=== PATIENT | male | born 1935 | race Caucasian/White ===

== ENCOUNTER → 2019-07-15 08:28 | Outpatient (BNVA) | payer MEDICARE, OTHER, SELFPAY | PROVIDERS: Family Provider Family Medicine; PCP Family Medicine; Visit Provider Urology | DX: R33.9 Retention of urine, unspecified (principal); N99.89 Other postprocedural complications and disorders of genitourinary system; N35.912 Unspecified bulbous urethral stricture, male | CPT/HCPCS: 81001 ==

== ENCOUNTER 2019-10-16 13:17 | Emergency (ER) | payer MEDICARE, OTHER, SELFPAY ==
[2019-10-16 13:21] VITALS: BP 224/79; PULSE 88; RESP 16; TEMP 36.9; O2SAT 98; BMI 27.3
--- NOTE | 2019-10-16 13:28 | XR_ITS ---
WS: [id number] LEFT HAND: 3 VIEW(S) TECHNIQUE: PA, oblique and lateral. HISTORY: fall COMPARISON: None available. There is a lucency through the distal radius along the articular surface that was not appreciated on the wrist radiographs. Suspicious for nondisplaced fracture. Severe degenerative changes at the first carpometacarpal joint. XR/XR hand LT min 3V* [id number] IMPRESSION: 1. Suspicious for nondisplaced fracture along the distal radial articular surf tyrell. 2. Soft tissue edema around the wrist.
--- NOTE | 2019-10-16 13:28 | XR_ITS ---
WS: [id number] LEFT WRIST: 3 VIEW(S) TECHNIQUE: PA, oblique and lateral. HISTORY: fall COMPARISON: None available. No acute fracture or dislocation. Severe degenerative changes at the first carpometacarpal joint. No soft tissue swelling. 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 No fracture.
--- NOTE | 2019-10-16 13:29 | W.ED.UPPEXIN ---
HPI - Extremity Injury (Upper) General: Chief Complaint: Extremity Injury, Upper Stated Complaint: fall yesterday, hurt wrist Time Seen by Provider: 10/16/19 13:19 Source: patient Mode of arrival: ambulatory Limitations: no limitations History of Present Illness: HPI narrative: Patient is a 84-year-old male here for complaints of left wrist pain that began following a fall 2 days ago. Patient states he was out on a walk with his and not paying attention and states he tripped over something and landed onto his left hand/wrist. Patient states he has been bothered by some discomfort since. No other injury sustained during the fall. He denies numbness, tingling, loss of sensation to the extremity. No color/temp changes noted. Reports some mild swelling MD complaint: injury to: left, wrist and hand Onset (ago): day(s) Other Extremity Injury: Left: hand and wrist Other injuries: none Place: home Severity: mild Exacerbating factors: movement of extremity and other (lifting) Context: fall Associated symptoms: Reports no associated symptoms; Denies neck pain or weakness in extremities Review of Systems Eyes: Denies: change in vision, blurry vision or photophobia Card: Denies: chest pain, palpitations, irregular heart rhythm, edema, lightheadedness, syncope or pre-syncope Resp: Denies: shortness of breath Musc: Reports: extremity pain (L hand/wrist) and joint swelling (L wrist); Denies: neck pain, back pain, redness, joint warmth, limited range of motion or muscle weakness Skin/Breast: Reports: other (no abrasions/lacerations noted) Neuro: Denies: headache, numbness in extremities, weakness in extremities, changes in sensation, lack of coordination, difficulty walking, frequent falls or dizziness [facility] ED PFSH: Social History Smoking and tobacco status: never smoked Alcohol intake: never Marital status: Current occupational status: retired Physical Exam Const: COMMON NORMALS: no apparent distress, average body habitus, oriented x3, no limitations, healthy appearing, alert and well nourished Neck/C-Spine: COMMON NORMALS: full ROM CERVICAL SPINE: Yes cervical ROM normal, No cervical spine tenderness and No paracervical muscle tenderness Resp: COMMON NORMALS: normal respiratory effort and clear to auscultation bilaterally AUSCULTATION: clear to auscultation bilaterally Cardio: COMMON NORMALS: regular rate and regular rhythm RATE: regular rate RHYTHM: regular rhythm Back/Pelvis: COMMON NORMALS: thoracic and lumbar spine normal to inspection and no thoracic nor lumbar tenderness Extremity: OTHER: mild TTP of L distal radial wrist and dorsum of L hand; maybe some very mild swelling present; radial pulse intact; full ROM; sensory intact Neuro: COMMON NORMALS: oriented x3, moves all extremities, no focal motor deficits, no sensory deficits noted and gait normal SENSORIUM/ORIENTATION: Yes alert Skin: COMMON NORMALS: no rashes or lesions noted GENERAL SKIN EXAM: no rashes or lesions noted Course Vital Signs: Vital signs: Vital Signs Temperature 98.5 F 10/16/19 13:21 Pulse Rate 77 10/16/19 13:39 Respiratory Rate 18 10/16/19 13:39 Blood Pressure 224/79 10/16/19 13:21 Pulse Oximetry 95 10/16/19 13:39 MDM - Extremity Injury (Upper) Imaging Data^: L wrist XR: My impression: NAD L hand XR: My impression: degenerative changes noted at 1st metacarpal joint; no acute fxs/dislocations noted Discharge Plan Discharge Patient Disposition: Home, Self-Care Clinical Impression: Left wrist sprain Qualifiers: Encounter type: initial encounter Qualified Code(s): S63.502A - Unspecified sprain of left wrist, initial encounter Condition: Stable Prescriptions: No Action multivitamin Tablet 1 tab PO QAM RF: 0 Restasis MultiDose 0.05 % drops 1 drop ophthalmic (eye) Q12H RF: 0 donepezil 10 mg tablet 10 mg PO QDAY RF: 0 ascorbic acid (vitamin C) 1,000 mg tablet 1 gm PO QDAY RF: 0 sertraline 25 mg tablet 25 mg PO QDAY RF: 0 levothyroxine 112 mcg capsule 112 mcg PO QDAY RF: 0 aspirin [Adult Low Dose Aspirin] 81 mg tablet,delayed release (DR/EC) 81 mg PO QDAY RF: 0 Lantus U-100 Insulin 100 unit/mL solution 100 unit SUBCUT QDAY RF: 0 atorvastatin [Lipitor] 20 mg tablet 20 mg PO QDAY RF: 0 insulin lispro [Humalog KwikPen Insulin] 100 unit/mL insulin pen 20 unit SUBCUT .sliding scale RF: 0 tramadol 50 mg tablet 50 mg PO .prn RF: 0 lubricants Gel 1 each TOPICAL ONCE Qty: 5 RF: 0 Discharge Orders: Discharge Order (Routine); Ordered 10/16/19 Ordered By: Shirley Rboerts Referrals: Lalita Mendosa MD [Primary Care Provider] - Discharge Diet: Usual diet Discharge Activity: Increase activity as tolerated Patient Instructions: Wrist Sprain (ED), Sprains - Wrist Activity Restrictions/Additional Instructions: Follow up with primary care in a week for continued pain. Coding Level of Care Code ED Psychosocial Rehabilitation Counselor for Liog Fwd Exam Detailed
[2019-10-16 13:39] VITALS: PULSE 77; RESP 18; O2SAT 95
--- NOTE | 2019-10-19 08:55 | DCPLANNER ---
manager vehicle was asked to schedule a follow up appointment for patient with ortho. manager vehicle called the ortho clinic, spoke with Jenna, gave clinic patients information. manager vehicle was told that patients information would be printed and reviewed. Clinic will call case assistant and patient with appointment information.
--- NOTE | 2019-10-20 11:28 | DCPLANNER ---
Patient had an appointment scheduled for 10.20.19 with ortho, with Dr. Maya. Patient did attend the appointment.
== END 2019-10-16 14:16 | disposition home or self-care (01) ==
PROVIDERS: Emergency Provider Physician Assistant; Family Provider Family Medicine; PCP Family Medicine
DX: S63.502A Unspecified sprain of left wrist, initial encounter (principal); W18.09XA Striking against other object with subsequent fall, initial encounter; Z79.82 Long term (current) use of aspirin; Z79.4 Long term (current) use of insulin
CPT/HCPCS: 12345; 29125; 73110; 73130; 99281; 99283

== ENCOUNTER → 2019-10-25 08:01 | Outpatient (BNVA) | payer MEDICARE, OTHER, SELFPAY | PROVIDERS: Family Provider Family Medicine; PCP Family Medicine; Visit Provider Urology | DX: N35.912 Unspecified bulbous urethral stricture, male (principal); N39.3 Stress incontinence (female) (male); N99.89 Other postprocedural complications and disorders of genitourinary system | CPT/HCPCS: 81001 ==

== ENCOUNTER → 2020-04-26 08:40 | Outpatient (BNVA) | payer MEDICARE, OTHER, SELFPAY | PROVIDERS: Family Provider Family Medicine; PCP Family Medicine; Visit Provider Urology | DX: R33.9 Retention of urine, unspecified (principal); N39.3 Stress incontinence (female) (male); N99.89 Other postprocedural complications and disorders of genitourinary system | CPT/HCPCS: 81003 ==

== ENCOUNTER → 2020-08-20 12:46 | Outpatient (BNVA) | payer MEDICARE, OTHER, SELFPAY | PROVIDERS: Family Provider Family Medicine; PCP Family Medicine; Visit Provider Urology | DX: Z01.812 Encounter for preprocedural laboratory examination (principal); N99.89 Other postprocedural complications and disorders of genitourinary system | CPT/HCPCS: 87635 ==

== ENCOUNTER 2020-08-23 11:10 | Day surgery (SDC) | payer MEDICARE, OTHER, SELFPAY ==
[2020-08-22 14:40] VITALS: BMI 27.3
--- NOTE | 2020-08-23 | SCC_ITS ---
Procedure Done: Cystoscopy multivariable dilation of urethral stricture 61.9 seconds of fluoroscopic guidance, for a cumulative dose of 15.97 mGy, was provided to Dr. Cabello by the radiology department. C-arm images of the pelvis were saved for the patient's permanent record. [facility]
--- NOTE | 2020-08-23 11:20 | SC_ITS ---
WS: [id number] C-arm fluoroscopy for urethral dilatation, 08/23/2020 Clinical Data: Urethral dilation Comparison: None. Findings: A urethral catheter was introduced. SC/C-arm FL for Urology Impression: Urethral catheter dilatation.
[2020-08-23 11:28] VITALS: BP 182/90; PULSE 79; RESP 16; TEMP 36.3; O2SAT 95
[2020-08-23] MEDS: sodium chloride 0.9% 1,000 ML 30 ML IV (11:48)
[2020-08-23 12:04] LABS: Glucose Point of Care 137 mg/dL (70-110)
--- NOTE | 2020-08-23 12:26 | ANES.PREANE2 ---
Pre-Anesthetic Assessment Pre-Anesthetic Assessment: Height/Weight: Height 1.73 m Weight 81.647 kg Temp Pulse Resp BP Pulse Ox 97.4 F L 79 16 182/90 95 08/23/20 11:28 08/23/20 11:28 08/23/20 11:28 08/23/20 11:28 08/23/20 11:28 Preop Diagnosis: urethral stricture Proposed Procedure: Operation Date: 08/23/20 12:50 Proposed Procedures p Cystoscopy 77475 N99.89(Not Applicable) - Joseph Cabello MD s Dilation urethral stricture(Not Applicable) - Joseph Cabello MD Familial anesthetic complications: None Was Beta Evangelina taken within 24 hours: N/A Last intake: Intake Last Liquid Date 08/23/20 Last Liquid Time 05:00 Last Solid Date 08/22/20 Last Solid Time 17:30 Social: Social History: No alcohol and No tobacco Exam: Pre-Anes Outpt Exam: alert, oriented x 3, clear to auscultation bilaterally and regular rate & rhythm Airway: Cervical ROM: WNL MP: 2 Dentition: Full CV/HEM: CV/HEM: CAD (stent many years ago - no longer on blood thinners) and HTN Metabolic: Metabolic: DM and Thyroid Anesthetic Plan: ASA status: 3 Anesthesia: General Risk of > 500 ml blood loss (7ml/kg in children): No Meds/Allergies Current Medications: Current Medications Generic Name Dose Route Start Last Admin Trade Name Freq PRN Reason Stop Dose Admin Sodium Chloride 1,000 mls @ 30 ml s/hr 08/23/20 11:30 08/23/20 11:48 Sodium Chloride 0.9% IV 08/24/20 11:29 30 mls/hr .Q24H MIRNA Administration PFSH Anesthesia PFSH: Medical History History of prostate cancer Sleep apnea Urinary anastomotic stricture Vertigo Surgical History History of back surgery History of prostatectomy S/P tonsillectomy S/P vasectomy Family History Family/Other CAD (coronary artery disease) Father , in his 70's Alzheimer disease Mother , in her 90's CAD (coronary artery disease) Social History Smoking and tobacco status: never smoked Alcohol intake: never Marital status: Current occupational status: retired History of recent travel: No Data Anesthesia Other Labs: Laboratory Results - last 48 hr 08/23/20 11:50 POC Glucose 137 H Cardiac Studies: No Data to Display
[2020-08-23] MEDS: levofloxacin-dextrose 5 % 500 MG/100 ML PREMIX 100 MG IV (13:23)
--- NOTE | 2020-08-23 13:28 | W.PM.OPSUD ---
Surgery/Procedure H&P Update DATE OF PROCEDURE: August 23, 2020 DATE H&P PERFORMED: 08/20/20 H&P UPDATE INFORMATION: I have reviewed H&P completed within last 30 days, I have examined patient prior to procedure, No changes to prior documentation and H&P is in [facility] on date indicated PREOP DIAGNOSIS: urethral stricture PLANNED PROCEDURE: Operation Date: 08/23/20 12:50 Proposed Procedures p Cystoscopy 84107 N99.89(Not Applicable) - Joseph Cabello MD s Dilation urethral stricture(Not Applicable) - Joseph Cabello MD
[2020-08-23] MEDS: lidocaine 2% Urojet 20 mL TOPICAL (13:53)
[2020-08-23] MEDS: iohexol 300 mg/mL 50 mL Btl (OR ONLY) XX (13:55)
--- NOTE | 2020-08-23 14:12 | PM.OP ---
Operative Report Date of procedure: August 23, 2020 Pre-op Diagnosis: urethrovesicle anastomotic stricture Post-op diagnosis: same Procedure Done: Cystoscopy multivariable dilation of urethral stricture Implants: 14 Norwegian coud? catheter, pitka's point tip Pathology: none sent Surgeon: Destiney Anesthesia: MAC Estimated blood loss: Less than 10 cc Urine output: Not measured Complications: None Findings: Very dense tight urethrovesical anastomotic stricture extending into the membranous urethra. Dilated with 18 Norwegian and 21 Norwegian balloons but still not able to pass a 16 or 14 Norwegian pitka's point tip catheter. Dilated then with renal dilators (Amplatz) to 18 Norwegian and able to manipulate a 14 Norwegian coud? tip pitka's point tip catheter over guidewire with good function Condition: stable Disposition: PACU Brief History: Mr. 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 Has been maintained with self clean intermittent catheterization for stricture patency maintenance. Recently missed a few catheters and was not able to get a catheter in easily. Attempts in the clinic at dilation were unsuccessful so he was admitted to the operating room today on outpatient basis for cystoscopy and dilation. Procedure: After routine preoperative evaluation examination and obtaining of informed consent he was taken to the operating suite on 08/23/2020 where MAC anesthesia was administered without difficulty. Prepped and draped in usual sterile fashion in dorsolithotomy position paying careful attention to avoiding pressure points after appropriate timeout was performed, SCDs confirmed to be functioning, preoperative antibiotics administered, beta-lindsey protocol confirmed. Cystoscope was advanced into the urethra to the level of the stricture. A guidewire was passed into the bladder as confirmed via fluoroscopy. An 18 Norwegian 4 cm balloon was advanced over the guidewire through the through the anastomotic to 10 shlomo of pressure with complete inflation of the balloon. Inflation was held in place for approximately 3 to 5 minutes. A 21 Norwegian 10 cm balloon was then advanced over the guidewire into the same position with inflation to 12 shlomo of pressure for the same duration. The balloon was removed. 17 Norwegian cystoscope was then attempted to be advanced through the dilated area but was unsuccessful due to the dense fixation of the area. A 16 Norwegian pitka's point tip catheter was then attempted to pass over the guidewire but this also was unsuccessful as was a 14 Norwegian coud? pitka's point tip catheter. Dilation with Amplatz renal dilators was then utilized from the 12 Norwegian over the guidewire through the 14, 16, 18 Norwegian over the snake and over the guidewire. The last was very tight. A 14 Norwegian coud? tip catheter converted to a pitka's point tip catheter was then a with some difficulty but over the guidewire. Small amount of contrast was mixed with saline and the balloon was inflated confirming its appropriate position and then deflated. 10 cc of saline was then utilized to inflate the balloon, the balloon was snugged against the bladder neck, catheter was confirmed to be functioning, and the wire removed. The bladder was then irrigated with a 60 cc To 30 Norwegian with no clots no significant bleeding. Catheter was placed to dependent drainage and the procedure was completed. Tolerated the procedure well without complications and was awakened in the operating room and returned to recovery in stable condition. PLANS: 1. Anticipate discharge from outpatient surgery with Alvarado catheter in place 2. Return to clinic in 1 week for catheter change to a 16 Norwegian pitka's point tip over guidewire
[2020-08-23 14:20] VITALS: BP 90/45; PULSE 61; RESP 16; TEMP 36.4; O2SAT 96
[2020-08-23 14:25] VITALS: BP 98/46; PULSE 58; RESP 16; O2SAT 97
[2020-08-23 14:30] VITALS: BP 114/52; PULSE 61; RESP 14; TEMP 36.4; O2SAT 95
--- NOTE | 2020-08-23 14:30 | SUR.PHASEI ---
1427- ORAL AIRWAY OUT, SIMPLE MASK AT 6LPM SAT 98%
[2020-08-23 14:38] VITALS: BP 111/53; PULSE 65; RESP 18; TEMP 36.6; O2SAT 94
--- NOTE | 2020-08-23 14:52 | ANE.PACU2 ---
Inpatient post-anesthesia follow up: Airway intact: Yes Vital signs: Temperature 97.8 F Pulse Rate 65 Respiratory Rate 18 Blood Pressure 111/53 Pulse Oximetry 94 Oxygen Delivery Me thod Room Air Oxygen Flow Rate 6 Fraction of Inspir ed Oxygen Hydration adequate: Yes Nausea and vomiting: No Pain level: 2 Mental status: Baseline
[2020-08-23 15:02] VITALS: BP 140/65; PULSE 56; RESP 18; TEMP 36.6; O2SAT 96
== END 2020-08-23 15:27 | disposition home or self-care (01) ==
PROVIDERS: Family Provider Family Medicine; PCP Family Medicine; Visit Provider Urology
PROC: 0TJB8ZZ Inspection of Bladder, Via Natural or Artificial Opening Endoscopic (ICD-10-PCS; CPT 52000; principal; 2020-08-23 12:50)
PROC: (CPT 52281; 2020-08-23 12:50)
DX: N35.919 Unspecified urethral stricture, male, unspecified site (principal); I25.10 Atherosclerotic heart disease of native coronary artery without angina pectoris; Z95.5 Presence of coronary angioplasty implant and graft; E11.9 Type 2 diabetes mellitus without complications; I10 Essential (primary) hypertension; Z85.46 Personal history of malignant neoplasm of prostate
CPT/HCPCS: 52281; 36416; 76000; 82962; 96365; J1956; J2704; J3010; J7030

== ENCOUNTER → 2020-10-31 09:02 | Outpatient (BNVA) | payer MEDICARE, OTHER, SELFPAY | PROVIDERS: Family Provider Family Medicine; PCP Family Medicine; Visit Provider Urology | DX: N30.00 Acute cystitis without hematuria (principal); N39.3 Stress incontinence (female) (male); N99.89 Other postprocedural complications and disorders of genitourinary system; Z85.46 Personal history of malignant neoplasm of prostate | CPT/HCPCS: 81003 ==

== ENCOUNTER 2020-11-15 10:06 | Emergency (ER) | payer MEDICARE, OTHER, SELFPAY ==
[2020-11-15 10:16] VITALS: BP 204/79; PULSE 70; RESP 16; TEMP 36.4; O2SAT 96; BMI 27.8
--- NOTE | 2020-11-15 10:39 | XR_ITS ---
WS: [id number] Exam: XR lumbar spine 2-3V* [id number] Date/Time of Exam: 11/15/2020 10:50 AM Reason For Exam: pain/fall Comparison 12/01/2017. No acute fracture or dislocation. Bilateral pedicle screws are in place from L3 to L5. Disc spacers a t L4-4 and L4-5. Facet arthropathy at all levels. Mild spondylosis. XR/XR lumbar spine 2-3V* [id number] IMPRESSION: 1. No acute fracture or malalignment. 2. Degenerative and postoperative changes of the lumbar spine. No overall huntley e since previous exam.
--- NOTE | 2020-11-15 10:45 | W.ED.BACK ---
HPI - Back Pain/Injury General: Chief Complaint: Back Pain/Injury Stated Complaint: fall last /back pain/hip pain Time Seen by Provider: 11/15/20 10:21 History of Present Illness: HPI Narrative: 85-year-old male presents to the emergency room complaint of back pain. He fell yesterday while working around the home he landed on his right side he was up and ambulatory after that seems to be doing okay with minimal discomfort. He is previously had back surgery with some instrumentation. He has been ambulatory he did not strike his head when he fell he did not denies any other injury. Severe pain with any movement in the low back. No radicular symptoms. MD elicited complaint: back pain, back injury and fall Pertinent past history: prior back pain Onset (ago): day(s) (1) Timing: constant Severity: moderate Similar Symptoms Previously: Yes Quality: stabbing and aching Location: lumbar spine Radiation: none Exacerbating factors: movement, sitting upright and walking Relieving factors: none Context: fall Associated symptoms: Deny abdominal pain, arthralgias, chills, change in bowel habits, difficulty walking, dysuria, fatigue, fecal incontinence, fever(s), hematuria, myalgias, nausea, numbness, syncope, tingling/numbness/burning, urinary frequency, urinary urgency, vomiting or weakness Review of Systems Const: Denies: fever(s), chills or fatigue ENMT: Denies: throat pain, ear or mastoid pain, nasal discharge or nasal congestion Card: Denies: syncope Resp: Denies: dyspnea, productive cough or non-productive cough GI: Denies: abdominal pain, nausea, vomiting, fecal incontinence or change in bowel habits : Denies: dysuria, urinary urgency or hematuria Skin/Breast: Denies: rash or pruritus Neuro: Denies: difficulty walking PFSH ED PFSH: Medical History History of prostate cancer Sleep apnea Urinary anastomotic stricture Vertigo Surgical History History of back surgery History of prostatectomy S/P tonsillectomy S/P vasectomy Family History Family/Other CAD (coronary artery disease) Father , in his 70's Alzheimer disease Mother , in her 90's CAD (coronary artery disease) Social History Smoking and tobacco status: never smoked Alcohol intake: never Marital status: Current occupational status: retired History of recent travel: No Physical Exam Const: ORIENTATION/CONSCIOUSNESS: Yes awake, Yes oriented to person, Yes oriented to place and Yes oriented to time HENMT: COMMON NORMALS: normocephalic, atraumatic and hearing grossly normal bilaterally HEAD & SCALP: normocephalic and atraumatic Neck/C-Spine: COMMON NORMALS: no JVD Resp: COMMON NORMALS: normal respiratory effort, No retractions, No use of accessory muscles and clear to auscultation bilaterally AUSCULTATION: clear to auscultation bilaterally Cardio: COMMON NORMALS: no JVD, regular rate, regular rhythm and No murmurs present (Cardio) RATE: regular rate RHYTHM: regular rhythm GI: COMMON NORMALS: Soft to palpation and No hepatosplenomegaly present AUSCULTATION: Yes normoactive bowel sounds PALPATION: Yes Soft to palpation, No Tenderness to palpation present (GI), No Guarding due to palpation present (GI) and Yes No hepatosplenomegaly present Extremity: COMMON NORMALS: normal to inspection, capillary refill normal, no clubbing, cyanosis or edema, no calf tenderness and no pedal edema Neuro: SENSORIUM/ORIENTATION: Yes oriented to person, Yes oriented to place and Yes oriented to time OTHER: Neurovascular intact lower extremities +2/4 deep tendon reflex patellar tendon bilaterally Skin: COMMON NORMALS: no rashes or lesions noted GENERAL SKIN EXAM: no rashes or lesions noted Course Vital Signs: Vital signs: Vital Signs Temperature 97.5 F L 11/15/20 10:16 Pulse Rate 70 11/15/20 10:16 Respiratory Rate 16 11/15/20 10:16 Blood Pressure 204/79 11/15/20 10:16 Pulse Oximetry 96 11/15/20 10:16 MDM - Back Pain/Injury MDM Narrative: Medical decision making narrative: Terrence film unremarkable. Patient clinically appears to have musculoskeletal back pain no urinary retention or fecal incontinence no radicular symptoms will discharge home diclofenac tizanidine as needed follow-up with primary care return if has uncontrolled pain Discharge Plan Discharge Patient Disposition: Home Clinical Impression: Fall, Lumbar back pain Condition: Stable Prescriptions: New diclofenac sodium 75 mg tablet,delayed release (DR/EC) 75 mg PO Q12H PRN (Reason: pain) Qty: 20 RF: 0 tizanidine 4 mg capsule 4 mg PO Q6H PRN (Reason: muscle spasticity) Qty: 20 RF: 0 No Action aspirin 81 mg tablet,delayed release (DR/EC) 81 mg PO PRN RF: 0 sertraline [Zoloft] 50 mg tablet 50 mg PO DAILY RF: 0 multivitamin Tablet 1 tab PO EVERY OTHER DAY RF: 0 donepezil 10 mg tablet 10 mg PO DAILY RF: 0 atorvastatin [Lipitor] 20 mg tablet 20 mg PO BEDTIME RF: 0 insulin lispro [Humalog KwikPen Insulin] 100 unit/mL insulin pen See Rx Instructions .ROUTE .COMPLEX RF: 0 lisinopril 20 mg tablet 20 mg PO DAILY PRN (Reason: Blood Pressure) RF: 0 hydrocodone-acetaminophen [[place]] 5-325 mg tablet 1 tab PO Q8H PRN (Reason: pain) Qty: 12 RF: 0 Synthroid 100 mcg tablet 100 mcg PO DAILY RF: 0 Lantus Solostar U-100 Insulin 100 unit/mL (3 mL) insulin pen 60 unit SUBCUT QAM RF: 0 Prevagen 1 cap PO DAILY RF: 0 Discharge Orders: Discharge ED (Routine); Ordered 11/15/20 Ordered By: Catarino Bro Referrals: Lalita Mendosa MD [Primary Care Provider] - Discharge Diet: Usual diet Discharge Activity: Increase activity as tolerated Patient Instructions: Opioid Safety Coding Level of Care Code ED Gas Or Water Meter Installer for Chg Fwd Exam Comprehensive
[2020-11-15] MEDS: HYDROcodone-acetaminophen 5-325 mg Tablet 1 TAB PO (11:15)
== END 2020-11-15 11:55 | disposition home or self-care (01) ==
PROVIDERS: Emergency Provider Family Medicine; Family Provider Family Medicine; PCP Family Medicine
DX: M54.5 Low back pain (principal); Z79.82 Long term (current) use of aspirin; Z79.4 Long term (current) use of insulin; Z85.46 Personal history of malignant neoplasm of prostate
CPT/HCPCS: 72100; 99283

== ENCOUNTER 2021-06-06 14:25 | Outpatient (CLI) | payer MEDICARE, OTHER, SELFPAY ==
--- NOTE | 2021-06-06 14:36 | XR_ITS ---
WS: [id number] XR thoracic spine 3V* [id number] REASON FOR EXAM: BACK PAIN/FELL AT HOME FINDINGS: Mild thoracic scoliosis convex right. Disc space narrowing with anterior osteophytic spurring in the mid and lower thoracic spine. There is a concave deformity of the inferior endplate of T12 however this appears old as it is associ ated with osteophytic spurring and sclerosis. No definite acute compression deformity. XR/XR thoracic spine 3V* [id number] IMPRESSION: No acute abnormality. Degenerative spondylosis.
--- NOTE | 2021-06-06 14:36 | XR_ITS ---
WS: [id number] XR lumbar spine 2-3V* [id number] REASON FOR EXAM: DORSALGIA/BACK PAIN AFTER STUMBLING/HX OF SPINAL STENOSIS FINDINGS: Bilateral pedicle screws at L3, L4, and L5. No radiopaque rods. Interbody fusion devices with apparent fusion of the L4-L5 and L5-S1 disc space. No change compared to the previous examination of 11/15/2020. XR/XR lumbar spine 2-3V* [id number] IMPRESSION: Stable postsurgical lumbar spine.
== END 2021-06-06 14:26 | disposition home or self-care (01) ==
LOC: RAD 14:35
PROVIDERS: PCP Family Medicine; Visit Provider Family Medicine
DX: M54.50 Low back pain, unspecified (principal); W19.XXXA Unspecified fall, initial encounter; M47.814 Spondylosis without myelopathy or radiculopathy, thoracic region
CPT/HCPCS: 72072; 72100

== ENCOUNTER → 2021-07-23 09:58 | Outpatient (BNVA) | payer MEDICARE, OTHER, SELFPAY | PROVIDERS: PCP Family Medicine; Referring Provider Family Medicine; Visit Provider Anesthesiology Pain Medicine | DX: M54.50 Low back pain, unspecified (principal); M79.604 Pain in right leg; M79.605 Pain in left leg; Z79.891 Long term (current) use of opiate analgesic | CPT/HCPCS: 99205 ==

== ENCOUNTER → 2021-08-27 09:56 | Outpatient (BNVA) | payer MEDICARE, OTHER, SELFPAY | PROVIDERS: PCP Family Medicine; Visit Provider Anesthesiology Pain Medicine | DX: M54.50 Low back pain, unspecified (principal); M25.551 Pain in right hip | CPT/HCPCS: 99214 ==

== ENCOUNTER → 2022-01-29 10:15 | Outpatient (BNVA) | payer MEDICARE, OTHER, SELFPAY | PROVIDERS: PCP Family Medicine; Visit Provider Nurse Practitioner Family | DX: N99.89 Other postprocedural complications and disorders of genitourinary system (principal); N48.1 Balanitis; N39.3 Stress incontinence (female) (male); Z85.46 Personal history of malignant neoplasm of prostate | CPT/HCPCS: 51798; 81003; 87086; 99213 ==

== ENCOUNTER → 2022-08-07 11:00 | Outpatient (BNVA) | payer MEDICARE, OTHER, SELFPAY | PROVIDERS: PCP Family Medicine; Visit Provider Urology | DX: N39.3 Stress incontinence (female) (male) (principal); N99.89 Other postprocedural complications and disorders of genitourinary system; N48.1 Balanitis; Z85.46 Personal history of malignant neoplasm of prostate | CPT/HCPCS: 51798; 99213 ==

== ENCOUNTER 2024-01-05 12:00 | Outpatient (CLI) | payer MEDICARE, OTHER, SELFPAY ==
--- NOTE | 2024-01-05 12:09 | XRR_ITS ---
PROCEDURE INFORMATION: Exam: XR Right Foot Exam date and time: 01/05/2024 12:22 PM Age: 88 years old Clinical indication: Injury or trauma; Fall; Blunt trauma; Right; Injury details: RT foot pain x 3 weeks, fell 01/01 and twisted knee; Additional info: Pain in R foot TECHNIQUE: Imaging protocol: Radiologic exam of the right foot. Views: 3 or more views. COMPARISON: CR XR knee RT 4V [id number] 01/05/2024 12:22 PM FINDINGS: Bones/joints: Valgus deformities right 1st through 4th toes. Oblique, slightly displaced fracture distal shaft right 5th metatarsal. Tiny right inferior calcaneal spur. Small chronic erosion inferior posterior right calcaneus. Otherwise, unremarkable. Soft tissues: Normal. XR/XR foot RT min 3V* [id number] IMPRESSION: 1. Slightly displaced oblique fracture distal shaft right 5th metatarsal. 2. Additional details as above.
--- NOTE | 2024-01-05 12:09 | XRR_ITS ---
PROCEDURE INFORMATION: Exam: XR Right Knee Exam date and time: 01/05/2024 12:22 PM Age: 88 years old Clinical indication: Injury or trauma; Fall; Sprain or strain; Patella or knee; Right; Injury date: 01/01; Additional info: Pain in R knee TECHNIQUE: Imaging protocol: Radiologic exam of the right knee. Views: 3 views. 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 Otherwise, unremarkable. Soft tissues: Normal. XR/XR knee RT 4V [id number] IMPRESSION: No acute findings.
== END 2024-01-05 12:01 | disposition home or self-care (01) ==
PROVIDERS: PCP Family Medicine; Visit Provider Family Medicine
DX: M25.561 Pain in right knee (principal); S80.911A Unspecified superficial injury of right knee, initial encounter; W19.XXXA Unspecified fall, initial encounter
CPT/HCPCS: 73564; 73630

== ENCOUNTER → 2024-01-08 11:05 | Outpatient (BNVA) | payer MEDICARE, OTHER, SELFPAY | PROVIDERS: PCP Family Medicine; Visit Provider Podiatrist Foot & Ankle Surgery | DX: S92.351A Displaced fracture of fifth metatarsal bone, right foot, initial encounter for closed fracture (principal); W19.XXXA Unspecified fall, initial encounter | CPT/HCPCS: 99203 ==

== ENCOUNTER → 2024-01-11 07:30 | Outpatient (BNVA) | payer MEDICARE, OTHER, SELFPAY | PROVIDERS: PCP Family Medicine; Visit Provider Specialist | DX: M65.30 Trigger finger, unspecified finger (principal); M19.042 Primary osteoarthritis, left hand; M65.342 Trigger finger, left ring finger | CPT/HCPCS: 73130; 99204 ==

== ENCOUNTER → 2024-01-29 11:43 | Outpatient (BNVA) | payer MEDICARE, OTHER, SELFPAY | PROVIDERS: PCP Family Medicine; Visit Provider Podiatrist Foot & Ankle Surgery | DX: S92.351D Displaced fracture of fifth metatarsal bone, right foot, subsequent encounter for fracture with routine healing (principal); W19.XXXD Unspecified fall, subsequent encounter | CPT/HCPCS: 73630; 99213 ==

== ENCOUNTER → 2024-02-17 16:15 | Outpatient (BNVA) | payer MEDICARE, OTHER, SELFPAY | PROVIDERS: PCP Family Medicine; Visit Provider Specialist | DX: Z01.818 Encounter for other preprocedural examination (principal) | CPT/HCPCS: 36415; 80053; 85025 ==

== ENCOUNTER 2024-03-10 11:33 | Outpatient (CLI) | payer MEDICARE, OTHER, SELFPAY ==
[2024-03-10 12:04] LABS: Add Urine Microscopic? YES; Bilirubin Urine Neg (Negative); Blood Urine 2+ (Negative); Glucose Urine UA Norm (Normal); Ketones Urine Negative (Negative); Leukocyte Esterase Urine Trace (Negative); Nitrate Urine Negative (Negative); Protein Urine Trace (Negative); Specific Gravity, Urine 1.025 (1.005-1.030); Urine Appearance Cloudy (CLEAR); Urine Color Yellow (Yellow); Urobilinogen Urine Norm (Negative); pH Urine 5 (5-7)
[2024-03-10 12:07] LABS: RBC Urine 0-4 /hpf (0-2)
[2024-03-10 12:08] LABS: Add Urine Culture? Yes; Bacteria Urine 2+ /hpf; Mucus Urine 2+ /hpf; Squamous Epithelial Cell Urine 0-4 /hpf (0-5); WBC Urine 15-25 /hpf (0-5)
== END 2024-03-10 11:34 | disposition home or self-care (01) ==
LOC: LAB 11:35
PROVIDERS: PCP Family Medicine; Visit Provider Specialist
DX: Z01.818 Encounter for other preprocedural examination (principal)
CPT/HCPCS: 81001; 87077; 87086; 87186

== ENCOUNTER 2024-03-15 05:57 | Day surgery (SDC) | payer MEDICARE, OTHER, SELFPAY ==
[2024-03-15] VITALS (12 sets, daily range): BP systolic 84–134; BP diastolic 41–82; PULSE 56–68; RESP 15–18; TEMP 36.1–36.4; O2SAT 90–94
[2024-03-15] MEDS: sodium chloride 0.9% 1,000 ML 30 ML IV (06:33)
[2024-03-15] MEDS: acetaminophen 1,000 MG/100 ML PIGGYBACK 400 MG IV (06:34)
[2024-03-15] MEDS: gabapentin 300 mg Capsule PO (06:36)
[2024-03-15] MEDS: CELEcoxib 200 mg Capsule 400 MG PO (06:36)
[2024-03-15 06:46] LABS: Glucose Point of Care 112 mg/dL (70-110)
--- NOTE | 2024-03-15 06:46 | ANES.PREANE2 ---
Pre-Anesthetic Assessment Height/Weight: Height 1.73 m Weight 83.915 kg Temp Pulse Resp BP Pulse Ox O2 Del Method 97 F L 68 16 134/82 93 Room Air 03/15/24 06:14 03/15/24 06:14 03/15/24 06:14 03/15/24 06:14 03/15/24 06:14 03/15/24 06:14 Operation Date: 03/15/24 07:00 Proposed Procedures p Trigger Finger Release(Left) - Apurva Carpio MD Familial anesthetic complications: None Was Beta Evangelina taken within 24 hours: N/A Was Clonidine taken within 24 hours: N/A Last intake: Intake Last Liquid Date 03/14/24 Last Liquid Time 00:00 Last Solid Date 03/14/24 Last Solid Time 18:30 Social No alcohol and No tobacco Exam alert, oriented x 3, clear to auscultation bilaterally and regular rate & rhythm Airway Mallampati: Class IV Dentition: full CV/HEM Coronary Artery Disease (stent) and Hypertension Metabolic Diabetes Mellitus, Hyperlipidemia and Thyroid Disease Anesthetic Plan ASA status: 3 Anesthesia: General Risk of > 500 ml blood loss (7ml/kg in children): No Medications/Allergies Home Medications Medication Instructions Recorded Confirmed Last Taken Type atorvastatin 20 mg tablet (Lipitor) 20 mg PO BEDTIME 07/12/19 03/15/24 03/14/24 History donepezil 10 mg tablet 10 mg PO DAILY see pharmacy 07/12/19 03/15/24 03/14/24 History comments multivitamin 1 tab PO EVERY OTHER DAY 07/12/19 03/15/24 03/14/24 History insulin lispro 100 unit/mL See Rx Instructions .Route 06/06/20 03/15/24 03/14/24 History subcutaneous pen (Humalog KwikPen .COMPLEX see pharmacy comments (U-100) Insulin) lisinopril 20 mg tablet 20 mg PO DAILY PRN Blood Pressure 06/06/20 03/15/24 03/14/24 History sertraline 50 mg tablet (Zoloft) 50 mg PO DAILY 08/20/20 03/15/24 03/14/24 History Prevagen 1 cap PO DAILY 11/15/20 03/15/24 03/14/24 History insulin glargine 100 unit/mL (3 60 unit SUBCUT QAM 05/03/15/24 03/14/24 History mL) subcutaneous pen (Lantus Solostar U-100 Insulin) levothyroxine 100 mcg tablet 100 mcg PO DAILY 11/15/20 03/15/24 03/14/24 History (Synthroid) tizanidine 4 mg capsule 4 mg PO Q6H PRN muscle spasticity 11/15/20 03/15/24 03/14/24 Rx #20 caps nystatin-triamcinolone 100,000 1 applic topical BID #30 grams 01/29/22 03/15/24 Unknown Rx unit/gram-0.1 % topical ointment sulfamethoxazole 800 1 tab PO BID 10 days #20 tabs 03/11/24 03/15/24 03/14/24 Rx mg-trimethoprim 160 mg tablet (Bactrim DS) Allergies Allergy/AdvReac Type Severity Reaction Status Date / Time loratadine [From Claritin] Allergy NA Verified 03/14/24 14:17 Current Medications Generic Name Dose Route Start Last Admin Trade Name Freq PRN Reason Stop Dose Admin Sodium Chloride 1,000 mls @ 30 mls/hr 03/15/24 06:00 03/15/24 06:33 Sodium Chloride 0.9% IV 03/16/24 05:59 30 mls/hr .Q24H MIRNA Administration PFSH Anesthesia Medical History History of prostate cancer Vertigo Sleep apnea Urinary anastomotic stricture Surgical History History of back surgery S/P tonsillectomy S/P vasectomy History of prostatectomy Family History Family/Other CAD (coronary artery disease) Father , in his 70's Alzheimer disease Mother , in her 90's CAD (coronary artery disease) Social History Smoking and tobacco/nicotine status: never used tobacco/nicotine Alcohol intake: never Substance/Drug Use: never Marital status: Current occupational status: retired Data Anesthesia Cardiac Studies: No Data to Display
--- NOTE | 2024-03-15 06:48 | W.PM.OPSUD ---
Surgery/Procedure H&P Update DATE OF PROCEDURE: March 15, 2024 DATE H&P PERFORMED: 02/17/24 H&P UPDATE INFORMATION: I have reviewed H&P completed within last 30 days, I have examined patient prior to procedure, No changes to prior documentation and H&P is in [facility] [place] EMR on date indicated PLANNED PROCEDURE: Operation Date: 03/15/24 07:00 Proposed Procedures p Trigger Finger Release(Left) - Apurva Carpio MD Related Problem List Diagnoses (1) Trigger finger, left ring finger:
[2024-03-15] MEDS: ceFAZolin 2,000 mg SDV 2000 MG IVP (07:07)
[2024-03-15] MEDS: BUPivacaine 0.5% INJ 30 mL XX (07:25)
--- NOTE | 2024-03-15 07:58 | PM.OP ---
Operative Report Date of procedure: March 15, 2024 Pre-op diagnosis: Left ring trigger finger Post-op diagnosis: Left ring trigger finger Post-op findings: Significant erythema around the flexor tendons and tightness of the A1 nick and more proximal fibrous tissue Procedure done: Release left ring trigger finger Specimens removed/disposition: None Surgeon: Apurva Carpio MD Centerless Grinding Machine Adjuster: None Anesthesia: General (Per LMA, ASA 3) Estimated blood loss (mL): 2 Tourniquet time (min): 0 (Not utilized) IV fluids (mL): 550 Urine output (mL): 0 (No Alvarado) Complications: None Findings: Significant compression across the flexor tendons and tightness of the A1 nick Condition: stable Disposition: PACU (Then return to same-day surgery for discharge to home) Brief History: This 88-year-old gentleman presented to the office with left ring trigger finger. He splinted his finger as he was not wanting to have surgery. This did not help with the triggering, and subsequently, he wished to proceed with surgical intervention. He does suffer with dementia, and risks and complications were discussed with him but mostly with his . They agreed to the surgical procedure. Consents were signed and questions were answered. Procedure: Patient was brought to the operating theater. He was placed on the operating room table. General anesthesia per LMA, ASA 3, was administered without difficulty. Patient tolerated it well. Ancef 2 g was administered uneventfully. Secondary to the patient's Dexcom, tourniquet was not utilized. Surgical pause was performed prior to commencement of the surgical procedure. At the time of the surgical pause, we identified the site and side of surgery. We also identified the patient's identity and appropriate administration of IV antibiotics. Following the surgical pause, an incision was made along the distal palmar crease beneath the ring finger. Dissection continued through the skin to the subcutaneous tissues using a scalpel. Blunt dissection was then utilized to spread soft tissues and allow access to the A1 nick. It was then incised longitudinally and sharply using a knife. This was accomplished without difficulty and atraumatically. Once the A1 nick was released, flexor tendons were brought up out of the wound and evaluated. There were no gross masses on the tendons. Tendons were returned to normal position. We then irrigated the wound and subsequently closed it with 3-0 nylon with an interrupted mattress type suture. Following closure of the wound, the wound was injected with bupivacaine plain into the subcutaneous tissues as a local anesthetic. Sterile dressing was then placed consisting of Dermabond, OpSite, fluffed fluffs, sterile soft roll, and an Tomas wrap. The patient was returned to recovery in satisfactory condition. He will be discharged home to follow-up with me in the office. There were no complications and no specimens. Related Problem List Diagnoses (1) Trigger finger, left ring finger:
--- NOTE | 2024-03-15 09:55 | ANE.PACU2 ---
Inpatient post-anesthesia follow up: Airway intact: Yes Vital signs: Temperature 97.4 F Pulse Rate 66 Respiratory Rate 18 Blood Pressure 112/56 Pulse Oximetry 91 Oxygen Delivery Me thod Room Air Oxygen Flow Rate 1 Fraction of Inspir ed Oxygen Hydration adequate: Yes Nausea and vomiting: No Pain level: 1 Mental status: Baseline
== END 2024-03-15 09:54 | disposition home or self-care (01) ==
PROVIDERS: PCP Family Medicine; Visit Provider Specialist
PROC: (CPT 26055; principal; 2024-03-15 07:00)
DX: M65.342 Trigger finger, left ring finger (principal); I25.10 Atherosclerotic heart disease of native coronary artery without angina pectoris; Z95.5 Presence of coronary angioplasty implant and graft; I10 Essential (primary) hypertension; E11.9 Type 2 diabetes mellitus without complications; E78.5 Hyperlipidemia, unspecified; Z79.4 Long term (current) use of insulin; Z85.46 Personal history of malignant neoplasm of prostate
CPT/HCPCS: 26055; 36416; 82962; J0131; J0690; J1100; J2371; J2405; J2704; J3010; J3490; J7030

== ENCOUNTER → 2024-03-28 08:03 | Outpatient (BNVA) | payer MEDICARE, OTHER, SELFPAY | PROVIDERS: PCP Family Medicine; Visit Provider Nurse Practitioner | DX: Z98.890 Other specified postprocedural states (principal) | CPT/HCPCS: 99024 ==

== ENCOUNTER → 2024-04-05 15:45 | Outpatient (BNVA) | payer MEDICARE, OTHER, SELFPAY | PROVIDERS: PCP Family Medicine; Visit Provider Podiatrist Foot & Ankle Surgery | DX: L60.3 Nail dystrophy (principal); E11.8 Type 2 diabetes mellitus with unspecified complications; G62.9 Polyneuropathy, unspecified; E11.42 Type 2 diabetes mellitus with diabetic polyneuropathy; Z79.4 Long term (current) use of insulin | CPT/HCPCS: 11721 ==

== ENCOUNTER → 2024-06-07 15:15 | Outpatient (BNVA) | payer MEDICARE, OTHER, SELFPAY | PROVIDERS: PCP Family Medicine; Visit Provider Podiatrist Foot & Ankle Surgery | DX: L60.3 Nail dystrophy (principal); G62.9 Polyneuropathy, unspecified; E11.42 Type 2 diabetes mellitus with diabetic polyneuropathy; Z79.4 Long term (current) use of insulin | CPT/HCPCS: 11721 ==

== ENCOUNTER → 2024-08-16 14:01 | Outpatient (BNVA) | payer MEDICARE, OTHER, SELFPAY | PROVIDERS: PCP Family Medicine; Visit Provider Podiatrist Foot & Ankle Surgery | DX: E11.42 Type 2 diabetes mellitus with diabetic polyneuropathy (principal); L60.3 Nail dystrophy; G62.9 Polyneuropathy, unspecified; Z79.4 Long term (current) use of insulin; L84 Corns and callosities | CPT/HCPCS: 11056; 11721 ==

== ENCOUNTER → 2024-11-01 15:19 | Outpatient (BNVA) | payer MEDICARE, OTHER, SELFPAY | PROVIDERS: PCP Family Medicine; Visit Provider Podiatrist Foot & Ankle Surgery | DX: E11.42 Type 2 diabetes mellitus with diabetic polyneuropathy (principal); L60.3 Nail dystrophy; L84 Corns and callosities; G62.9 Polyneuropathy, unspecified; Z79.4 Long term (current) use of insulin | CPT/HCPCS: 11056; 11721 ==

== ENCOUNTER 2024-12-08 16:31 | Emergency (ER) | payer MEDICARE, OTHER, SELFPAY ==
[2024-12-08 16:51] VITALS: BP 155/76; PULSE 94; RESP 16; TEMP 36.4; O2SAT 96
[2024-12-08 17:20] LABS: Basophils % 0.3 %; Eosinophils # 0.2 10^3/uL (0.0-0.8); Eosinophils % 1.7 %; Hematocrit 46.6 % (37-53); Lymphocytes % 17.1 %; Mean Corpuscular HGB Conc 34.1 g/dL (30-55); Mean Corpuscular Volume 93.8 fl (82-101); Mean Platelet Volume 9.5 fL (7.4-10.4); Monocytes # 0.9 10^3/uL (0.2-0.9); Monocytes % 7.6 %; Neutrophils # 8.36 10^3/uL (1.8-7.7); Neutrophils % 72.7 %; Nucleated Red Blood Cells % 0 %; Platelet Count 139 10^3/cmm (157-399); Red Blood Count 4.97 10^6/uL (3.85-5.65); Red Cell Distribution Width 13.1 % (12.1-15.1); White Blood Count 11.48 10^3/uL (3.29-11.43)
[2024-12-08 17:43] LABS: Alanine Aminotransferase 19 U/L (0-41); Albumin Level 4.7 g/dL (3.5-5.2); Alkaline Phosphatase 86 U/L (40-130); Anion Gap 18.9 (5-19); Aspartate Amino Transferase 17 U/L (0-40); Blood Urea Nitrogen 23 mg/dL (8-23); Calcium 9.5 mg/dL (8.5-10.5); Carbon Dioxide 22 mmol/L (22-29); Chloride 106 mmol/L (98-107); Creatinine Clr Calc Pharmacy 59.6845; Globulin 2.8 g/dL (1.3-4.6); Glucose 98 mg/dL (65-115); Osmolality Calculated 300 mOsm/kg (285-295); Potassium 3.9 mmol/L (3.5-5.1); Sodium 143 mmol/L (136-145); Total Bilirubin 0.5 mg/dL (0.15-1.2); Total Protein 7.5 g/dL (6.6-8.7)
[2024-12-08 18:31] VITALS: BP 133/63; O2SAT 93
--- NOTE | 2024-12-08 18:43 | W.ED.MALEGU ---
HPI - Male Genitourinary General: Chief complaint: Urogenital-Male Stated complaint: unable to urinate Time Seen by Provider: 12/08/24 18:26 History of Present Illness: 89-year-old male presents with possible urinary retention. Patient has a history of dementia and reports he has not urinated since this morning. However not sure if he has urinated and changed to brief or not. Patient did urinate in his briefs while in the ER. Patient does report he tried to self cath at home and there was a little bit of blood associated with his urine. Associated symptoms: Deny nausea or vomiting Related Data Home Medications ?Medication ?Instructions ?Recorded ?Confirmed atorvastatin 20 mg tablet (Lipitor) 20 mg PO BEDTIME 07/12/19 11/01/24 donepezil 10 mg tablet 10 mg PO DAILY see pharmacy 07/12/19 11/01/24 comments multivitamin 1 tab PO EVERY OTHER DAY 07/12/19 11/01/24 insulin lispro 100 unit/mL See Rx Instructions .Route 06/06/20 11/01/24 subcutaneous pen (Humalog KwikPen .COMPLEX see pharmacy comments (U-100) Insulin) lisinopril 20 mg tablet 20 mg PO DAILY PRN Blood Pressure 06/06/20 11/01/24 sertraline 50 mg tablet (Zoloft) 50 mg PO DAILY 08/20/20 11/01/24 Prevagen 1 cap PO DAILY 11/15/20 11/01/24 insulin glargine 100 unit/mL (3 60 unit SUBCUT QAM 11/15/20 11/01/24 mL) subcutaneous pen (Lantus Solostar U-100 Insulin) levothyroxine 100 mcg tablet 100 mcg PO DAILY 11/15/20 11/01/24 (Synthroid) Previous Rx's ?Medication ?Instructions ?Recorded tizanidine 4 mg capsule 4 mg PO Q6H PRN muscle spasticity 11/15/20 #20 caps nystatin-triamcinolone 100,000 1 applic topical BID #30 grams 01/29/22 unit/gram-0.1 % topical ointment sulfamethoxazole 800 1 tab PO BID 10 days #20 tabs 03/11/24 mg-trimethoprim 160 mg tablet (Bactrim DS) cephalexin 500 mg capsule 500 mg PO BID #10 caps 06/19/25 Allergies Allergy/AdvReac Type Severity Reaction Status Date / Time loratadine (From Claritin) Allergy NA Verified 11/01/24 15:19 Review of Systems General: Reports: Other (Limited due to dementia) GI: Reports: other; Denies: abdominal pain, nausea or vomiting : Reports: other (Please see HPI) PFSH ED PFSH: Medical History History of prostate cancer Vertigo Sleep apnea Urinary anastomotic stricture Surgical History S/P trigger finger release Date of procedure: March 15, 2024 Procedure done: Release left ring trigger finger. Surgeon: Apurva Carpio MD History of back surgery S/P tonsillectomy S/P vasectomy History of prostatectomy Family History Family/Other CAD (coronary artery disease) Father , in his 70's Alzheimer disease Mother , in her 90's CAD (coronary artery disease) Social History Smoking and tobacco/nicotine status: never used tobacco/nicotine Alcohol intake: never Substance/Drug Use: never Marital status: Current occupational status: retired Physical Exam Const: COMMON NORMALS: no acute distress and alert Resp: COMMON NORMALS: normal respiratory effort and clear to auscultation bilaterally AUSCULTATION: clear to auscultation bilaterally Cardio: COMMON NORMALS: regular rate and regular rhythm RATE: regular rate RHYTHM: regular rhythm GI: COMMON NORMALS: Soft to palpation and non-tender PALPATION: Yes Soft to palpation Neuro: SENSORIUM/ORIENTATION: Yes alert Psych: OTHER: At baseline Skin: COMMON NORMALS: no rashes or lesions noted GENERAL SKIN EXAM: no rashes or lesions noted Course Vital Signs: Vital signs: Vital Signs Temperature 97.5 F L 12/08/24 16:51 Pulse Rate 94 12/08/24 16:51 Respiratory Rate 16 12/08/24 16:51 Blood Pressure 133/63 12/08/24 18:31 Pulse Oximetry 93 12/08/24 18:31 Oxygen Delivery Me thod Room Air 12/08/24 16:51 MDM - Male Medical Decision Making Patient's CBC and CMP show no acute findings. Bladder scan following patient urinating has brief shows appropriate bladder emptying. Due to patient can planing of some urinary symptoms with his dementia I am going ahead to go ahead and just treat for potential UTI and have him follow-up with her primary care provider. thinks this would be an appropriate treatment. Patient stable and discharged home. Lab Data 12/08/24 17:12 12/08/24 17:12 Laboratory Results WBC 11.48 10^3/uL (3.29-11.43) H 12/08/24 17:12 RBC 4.97 10^6/uL (3.85-5.65) 12/08/24 17:12 Hgb 15.90 g/dL (11.27-16.99) 12/08/24 17:12 Hct 46.6 % (37-53) 12/08/24 17:12 MCV 93.8 fl (82-101) 12/08/24 17:12 MCH 32.0 pg (27-33) 12/08/24 17:12 MCHC 34.1 g/dL (30-55) 12/08/24 17:12 RDW 13.1 % (12.1-15.1) 12/08/24 17:12 Plt Count 139 10^3/cmm (157-399) L 12/08/24 17:12 MPV 9.5 fL (7.4-10.4) 12/08/24 17:12 Neut % (Auto) 72.7 % 12/08/24 17:12 Lymph % (Auto) 17.1 % 12/08/24 17:12 [place] % (Auto) 7.6 % 12/08/24 17:12 Eos % (Auto) 1.7 % 12/08/24 17:12 Baso % (Auto) 0.3 % 12/08/24 17:12 Neut # (Auto) 8.36 10^3/uL (1.8-7.7) H 12/08/24 17:12 Lymph # (Auto) 2.0 10^3/uL (0.8-4.8) 12/08/24 17:12 [place] # (Auto) 0.9 10^3/uL (0.2-0.9) 12/08/24 17:12 Eos # (Auto) 0.2 10^3/uL (0.0-0.8) 12/08/24 17:12 Baso # (Auto) 0.0 10^3/uL (0.0-0.1) 12/08/24 17:12 Nucleated RBC % (auto) 0 % 12/08/24 17:12 Nucleated RBCs # 0.0 /100WBC 12/08/24 17:12 Sodium 143 mmol/L (136-145) 12/08/24 17:12 Potassium 3.9 mmol/L (3.5-5.1) 12/08/24 17:12 Chloride 106 mmol/L (98-107) 12/08/24 17:12 Carbon Dioxide 22 mmol/L (22-29) 12/08/24 17:12 Anion Gap 18.9 (5-19) 12/08/24 17:12 BUN 23 mg/dL (8-23) 12/08/24 17:12 Creatinine 0.9 mg/dL (0.7-1.2) 12/08/24 17:12 GFR Calculation Not Reportable 12/08/24 17:12 Glucose 98 mg/dL (65-115) 12/08/24 17:12 Calculated Osmolality 300 mOsm/kg (285-295) H 12/08/24 17:12 Calcium 9.5 mg/dL (8.5-10.5) 12/08/24 17:12 Total Bilirubin 0.5 mg/dL (0.15-1.2) 12/08/24 17:12 AST 17 U/L (0-40) 12/08/24 17:12 ALT 19 U/L (0-41) 12/08/24 17:12 Alkaline Phosphatase 86 U/L (40-130) 12/08/24 17:12 Total Protein 7.5 g/dL (6.6-8.7) 12/08/24 17:12 Albumin 4.7 g/dL (3.5-5.2) 12/08/24 17:12 Globulin 2.8 g/dL (1.3-4.6) 12/08/24 17:12 No radiology studies performed this visit Discharge Plan Discharge Patient Disposition: Home Clinical Impression: Urinary tract infection, Dementia Condition: Stable Prescriptions: New cephalexin 500 mg capsule 500 mg PO BID Qty: 10 0RF No Action sertraline [Zoloft] 50 mg tablet 50 mg PO DAILY multivitamin Tablet 1 tab PO EVERY OTHER DAY donepezil 10 mg tablet 10 mg PO DAILY atorvastatin [Lipitor] 20 mg tablet 20 mg PO BEDTIME insulin lispro [Humalog KwikPen Insulin] 100 unit/mL insulin pen See Rx Instructions .ROUTE .COMPLEX Rx Instructions: 26 unit subcutaneously qam, 24 units at noon,24 units qpm and will take 10-15 units extra prn lisinopril 20 mg tablet 20 mg PO DAILY PRN (Reason: Blood Pressure) bupivacaine (PF) 0.25 % (2.5 mg/mL) solution 2 ml Infiltration ONCE Qty: 1 0RF dexamethasone sodium phos (PF) 10 mg/mL solution 8 mg Infiltration ONCE Qty: 0.8 0RF nystatin-triamcinolone 100,000-0.1 unit/gram-% ointment 1 applic topical BID Qty: 30 1RF sulfamethoxazole-trimethoprim [Bactrim DS] 800-160 mg tablet 1 tab PO BID 10 Days Qty: 20 0RF tizanidine 4 mg capsule 4 mg PO Q6H PRN (Reason: muscle spasticity) Qty: 20 0RF Rx Instructions: do not exceed 3 doses per 24 hrs levothyroxine [Synthroid] 100 mcg tablet 100 mcg PO DAILY insulin glargine [Lantus Solostar U-100 Insulin] 100 unit/mL (3 mL) insulin pen 60 unit SUBCUT QAM Prevagen 1 cap PO DAILY Discharge Orders: Discharge ED (Routine); Ordered 12/08/24 Ordered By: Papito Moran Referrals: Lalita Mendosa MD [Primary Care Provider, Family Practice] Discharge Diet: Usual diet Discharge Activity: Resume usual activity Patient Instructions: Dysuria - Male, Opioid Safety, Pain Management Activity Restrictions/Additional Instructions: Please follow-up with your primary care provider Thursday or Thursday for recheck. Please start antibiotics this evening or in the morning. 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
== END 2024-12-08 19:34 | disposition home or self-care (01) ==
PROVIDERS: Family Medicine; Emergency Provider Student in an Organized Health Care Education/Training Program; PCP Family Medicine
DX: N39.0 Urinary tract infection, site not specified (principal); F03.90 Unspecified dementia, unspecified severity, without behavioral disturbance, psychotic disturbance, mood disturbance, and anxiety; Z79.4 Long term (current) use of insulin; Z85.46 Personal history of malignant neoplasm of prostate
CPT/HCPCS: 36415; 51798; 80053; 85025; 99283

== ENCOUNTER 2025-01-03 11:22 | Inpatient (IN) | payer MEDICARE, OTHER, SELFPAY ==
--- OUTSIDE RECORDS SUMMARY | 2025-01-02 09:17 | XMS_ITS ---
Author Organization [employer], [facility] Address [address] [place] [address] Care Team Providers Care Front Load Trash Truck Driver Name Role Phone Cali ALVAREZ, Terrance Primary Care Provider AVRIL Flowers Unavailable [phone] SARITA RODGERS Unavailable [phone] Allergies No Known Allergies REASON FOR VISIT ABX request Medications Medication SIG (Take, Route, Fr equency, Duration) Notes Start Date End Date Status Cipro 500 MG 1 tablet Orally ever y 12 hrs for 10 days 01/02/2025 01/12/2025 Active Encounters Encounter Location Date Provider Diagnosis [employer], [facility] [address] [place] [address] 01/02/2025 SARITA RODGERS Plan Of Treatment Medication Medication Name Sig Start Date Stop Date Notes Cipro 500 MG 1 tablet Orally every 12 hrs for 10 days 12/2001/12/2025 Next Appt Details Provider Name:SARITA Odell, 01/05/2025 02:20:00 PM, [address] [facility] [place], [address], Progress Notes * Scotty MARSH DDOB:1935 ( 89 yo M)Acc No.[id number]:01/02/2025 Patient: Antonio Scotty SOARES :1935 A ge:89 Y S ex:Male Address:[address] [place], [address] * Refills Start Cipro Tablet, 500 MG, Orally, 20 Tablet, 1 tablet, every 12 hrs, 10 days, Refills=0 Subjective: * Chief Complaints: * A BX request * Medical History: * Surgical History: * Hospitalization/Major Diagno stic Procedure: * Medications: * Allergies: N .K.D.A.no[Allergies Verified] Objective: * Vitals: * Physical Examination: Assessment: Plan: * Treatment: * Procedure Codes: * true * Date: Generated for Leonela kohler/Savage/Grace on: 0 01/03/2025 12:20 PM CDT
[2025-01-03 11:24] VITALS: PULSE 57; RESP 16; TEMP 36.8; O2SAT 98
--- NOTE | 2025-01-03 11:32 | XRR_ITS ---
PROCEDURE INFORMATION: Exam: XR Chest Exam date and time: 01/03/2025 11:32 AM Age: 89 years old Clinical indication: Other: AMS TECHNIQUE: Imaging protocol: Radiologic exam of the chest. Views: 1 view. COMPARISON: CR XR thoracic spine 3V* [id number] 06/06/2021 2:54 PM FINDINGS: Lungs: Unremarkable. No consolidation. Pleural spaces: Unremarkable. No pleural effusion. No pneumothorax. Heart/Mediastinum: Unremarkable. No cardiomegaly. Bones/joints: Unremarkable. XR/XR chest 1V portable [id number] IMPRESSION: No acute findings.
--- NOTE | 2025-01-03 11:32 | CT_ITS ---
WS: [id number] CT HEAD TECHNIQUE: Noncontrast CT of the head obtained from the skullbase to the vertex. CLINICAL INFORMATION: ams COMPARISON: None. DLP: 1069.[address] scans at [facility] use at least one of these dose optimization techniques: automated exposure control; mA and/or kV adjustment per patient size (includes targeted exams where dose is matched to clinical indication); or iterative reconstruction. FINDINGS: No evidence of intracranial hemorrhage or mass effect. Ventricular system and basal cisterns are patent. Moderate small vessel changes with moderate parenchymal volume loss. No extra-axial fluid collections. No evidence of mass or mass effect. Vascular calcification. 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 Paranasal sinuses and mastoid air cells are well aerated. .Normal visualized soft tissues. CT/CT head wo con* [id number] IMPRESSION: 1. No evidence of intracranial hemorrhage or mass effect. 2. Moderate small vessel changes. Moderate parenchymal volume loss. 3. Chronic appearing encephalomalacia in the RIGHT inferior temporal lobe like ly due to prior trauma or infarct. No comparisons. 4. Vascular calcification. 5. No acute intracranial findings.
--- NOTE | 2025-01-03 11:41 | W.ED.AMS ---
HPI - Altered Mental Status General: Chief Complaint: Altered Mental Status Stated Complaint: AMS Time Seen by Provider: 01/03/25 11:24 Source: EMS Mode of arrival: EMS Limitations: altered mental status History of Present Illness: 89-year-old male has a history of dementia per family's states has had increasing confusion and weakness since Thursday. States that he is became less alert. He is able to tell me his name not able to really answer the questions family states that over the last 2 days he has been having a hard time walking and has been very weak. He has had a history of urinary infections in the past. Denies any fever cough Related Data Home Medications ?Medication ?Instructions ?Recorded ?Confirmed atorvastatin 20 mg tablet (Lipitor) 20 mg PO BEDTIME 07/12/19 11/01/24 donepezil 10 mg tablet 10 mg PO DAILY see pharmacy 07/12/19 11/01/24 comments multivitamin 1 tab PO EVERY OTHER DAY 07/12/19 11/01/24 insulin lispro 100 unit/mL See Rx Instructions .Route 06/06/20 11/01/24 subcutaneous pen (Humalog KwikPen .COMPLEX see pharmacy comments (U-100) Insulin) lisinopril 20 mg tablet 20 mg PO DAILY PRN Blood Pressure 06/06/20 11/01/24 sertraline 50 mg tablet (Zoloft) 50 mg PO DAILY 08/20/20 11/01/24 Prevagen 1 cap PO DAILY 11/15/20 11/01/24 insulin glargine 100 unit/mL (3 60 unit SUBCUT QAM 11/15/20 11/01/24 mL) subcutaneous pen (Lantus Solostar U-100 Insulin) levothyroxine 100 mcg tablet 100 mcg PO DAILY 11/15/20 11/01/24 (Synthroid) Previous Rx's ?Medication ?Instructions ?Recorded tizanidine 4 mg capsule 4 mg PO Q6H PRN muscle spasticity 11/15/20 #20 caps nystatin-triamcinolone 100,000 1 applic topical BID #30 grams 01/29/22 unit/gram-0.1 % topical ointment sulfamethoxazole 800 1 tab PO BID 10 days #20 tabs 03/11/24 mg-trimethoprim 160 mg tablet (Bactrim DS) cephalexin 500 mg capsule 500 mg PO BID #10 caps 12/08/24 Allergies Allergy/AdvReac Type Severity Reaction Status Date / Time loratadine (From Claritin) Allergy NA Verified 11/01/24 15:19 Review of Systems General: Reports: ROS unobtainable due to mental status PFSH ED PFSH: Medical History (Updated 12/16/24 @ 00:00 by PAWEL Martinez) History of prostate cancer Vertigo Sleep apnea Urinary anastomotic stricture Surgical History S/P trigger finger release Date of procedure: March 15, 2024 Procedure done: Release left ring trigger finger. Surgeon: Apurva Carpio MD History of back surgery S/P tonsillectomy S/P vasectomy History of prostatectomy Family History Family/Other CAD (coronary artery disease) Father , in his 70's Alzheimer disease Mother , in her 90's CAD (coronary artery disease) Social History Smoking and tobacco/nicotine status: never used tobacco/nicotine Alcohol intake: never Substance/Drug Use: never Marital status: Current occupational status: retired Physical Exam Const: COMMON NORMALS: alert EXAM LIMITATIONS: altered mental status ORIENTATION/CONSCIOUSNESS: Yes oriented to person; not oriented to place and not oriented to time HENMT: COMMON NORMALS: normocephalic and atraumatic HEAD & SCALP: normocephalic and atraumatic Eye: COMMON NORMALS: conjunctivae normal CONJUNCTIVA: Yes conjunctivae normal Neck/C-Spine: COMMON NORMALS: full ROM and supple Chest: COMMONS NORMALS: normal inspection of the chest Resp: COMMON NORMALS: normal respiratory effort, No retractions, No use of accessory muscles and clear to auscultation bilaterally AUSCULTATION: clear to auscultation bilaterally Cardio: COMMON NORMALS: regular rate, regular rhythm and No murmurs present (Cardio) RATE: regular rate RHYTHM: regular rhythm GI: COMMON NORMALS: Normal to inspection, nondistended, normoactive bowel sounds present, Soft to palpation, non-tender and no masses PALPATION: Yes Soft to palpation Extremity: COMMON NORMALS: normal to inspection and full ROM Neuro: COMMON NORMALS: moves all extremities and no focal motor deficits SENSORIUM/ORIENTATION: Yes alert, Yes oriented to person, No oriented to place and No oriented to time Psych: COMMON NORMALS: cooperative Skin: COMMON NORMALS: no rashes or lesions noted and no wounds GENERAL SKIN EXAM: no rashes or lesions noted Course Vital Signs: Vital signs: Vital Signs Temperature 98.3 F 01/03/25 11:24 Pulse Rate 56 L 01/03/25 14:40 Respiratory Rate 18 01/03/25 14:40 Blood Pressure 148/107 01/03/25 14:40 Pulse Oximetry 98 01/03/25 14:40 Oxygen Delivery Me thod Room Air 01/03/25 11:24 MDM - Altered Mental Status Medical Decision Making Patient presents here with altered mental status along with generalized weakness head CT here is normal did speak to hospitalist will admit at this time Medical Records I reviewed the patient's medical records. Lab Data I reviewed the patient's lab results. 01/03/25 11:25 01/03/25 11:25 Radiology Impressions Chest X-Ray 01/03/25 11:32 IMPRESSION: No acute findings. Head CT 01/03/25 11:32 IMPRESSION: 1. No evidence of intracranial hemorrhage or mass effect. 2. Moderate small vessel changes. Moderate parenchymal volume loss. 3. Chronic appearing encephalomalacia in the RIGHT inferior temporal lobe likely due to prior trauma or infarct. No comparisons. 4. Vascular calcification. 5. No acute intracranial findings. Laboratory Results WBC 6.88 10^3/uL (3.29-11.43) 01/03/25 11:25 RBC 5.21 10^6/uL (3.85-5.65) 01/03/25 11:25 Hgb 16.40 g/dL (11.27-16.99) 01/03/25 11:25 Hct 48.7 % (37-53) 01/03/25 11:25 MCV 93.5 fl (82-101) 01/03/25 11:25 MCH 31.5 pg (27-33) 01/03/25 11:25 MCHC 33.7 g/dL (30-55) 01/03/25 11:25 RDW 13.1 % (12.1-15.1) 01/03/25 11:25 Plt Count 144 10^3/cmm (157-399) L 01/03/25 11:25 MPV 9.8 fL (7.4-10.4) 01/03/25 11:25 Neut % (Auto) 70.4 % 01/03/25 11:25 Lymph % (Auto) 20.3 % 01/03/25 11:25 Scurry % (Auto) 7.6 % 01/03/25 11:25 Eos % (Auto) 1.3 % 01/03/25 11:25 Baso % (Auto) 0.1 % 01/03/25 11:25 Neut # (Auto) 4.84 10^3/uL (1.8-7.7) 01/03/25 11:25 Lymph # (Auto) 1.4 10^3/uL (0.8-4.8) 01/03/25 11:25 Scurry # (Auto) 0.5 10^3/uL (0.2-0.9) 01/03/25 11:25 Eos # (Auto) 0.1 10^3/uL (0.0-0.8) 01/03/25 11:25 Baso # (Auto) 0.0 10^3/uL (0.0-0.1) 01/03/25 11:25 Nucleated RBC % (auto) 0 % 01/03/25 11: Nucleated RBCs # 0.0 /100WBC 01/03/25 11:25 Sodium 142 mmol/L (136-145) 01/03/25 11:25 Potassium 3.9 mmol/L (3.5-5.1) 01/03/25 11:25 Chloride 102 mmol/L (98-107) 01/03/25 11:25 Carbon Dioxide 27 mmol/L (22-29) 01/03/25 11:25 Anion Gap 16.9 (5-19) 01/03/25 11:25 BUN 26 mg/dL (8-23) H 01/03/25 11:25 Creatinine 0.9 mg/dL (0.7-1.2) 01/03/25 11:25 GFR Calculation Not Reportable 01/03/25 11:25 Glucose 109 mg/dL (65-115) 01/03/25 11:25 Calculated Osmolality 299 mOsm/kg (285-295) H 01/03/25 11:25 Calcium 9.7 mg/dL (8.5-10.5) 01/03/25 11:25 Magnesium 2.3 mg/dL (1.7-2.3) 01/03/25 11:25 Total Bilirubin 0.7 mg/dL (0.15-1.2) 01/03/25 11:25 AST 23 U/L (0-40) 01/03/25 11:25 ALT 16 U/L (0-41) 01/03/25 11:25 Alkaline Phosphatase 90 U/L (40-130) 01/03/25 11:25 Total Protein 7.9 g/dL (6.6-8.7) 01/03/25 11:25 Albumin 4.7 g/dL (3.5-5.2) 01/03/25 11: Globulin 3.2 g/dL (1.3-4.6) 01/03/25 11:25 TSH 2.16 uIU/mL (0.27-4.20) 01/03/25 11:25 All radiology interpretation(s) finalized by discharge Discharge Plan Discharge Condition: Stable Prescriptions: No Action sertraline [Zoloft] 50 mg tablet 50 mg PO DAILY multivitamin Tablet 1 tab PO EVERY OTHER DAY donepezil 10 mg tablet 10 mg PO DAILY atorvastatin [Lipitor] 20 mg tablet 20 mg PO BEDTIME insulin lispro [Humalog KwikPen Insulin] 100 unit/mL insulin pen See Rx Instructions .ROUTE .COMPLEX Rx Instructions: 26 unit subcutaneously qam, 24 units at noon,24 units qpm and will take 10-15 units extra prn lisinopril 20 mg tablet 20 mg PO DAILY PRN (Reason: Blood Pressure) bupivacaine (PF) 0.25 % (2.5 mg/mL) solution 2 ml Infiltration ONCE Qty: 1 0RF dexamethasone sodium phos (PF) 10 mg/mL solution 8 mg Infiltration ONCE Qty: 0.8 0RF nystatin-triamcinolone 100,000-0.1 unit/gram-% ointment 1 applic topical BID Qty: 30 1RF sulfamethoxazole-trimethoprim [Bactrim DS] 800-160 mg tablet 1 tab PO BID 10 Days Qty: 20 0RF tizanidine 4 mg capsule 4 mg PO Q6H PRN (Reason: muscle spasticity) Qty: 20 0RF Rx Instructions: do not exceed 3 doses per 24 hrs levothyroxine [Synthroid] 100 mcg tablet 100 mcg PO DAILY insulin glargine [Lantus Solostar U-100 Insulin] 100 unit/mL (3 mL) insulin pen 60 unit SUBCUT QAM Prevagen 1 cap PO DAILY cephalexin 500 mg capsule 500 mg PO BID Qty: 10 0RF Referrals: Terrance Leiva MD [Primary Care Provider, Family Practice] Patient Instructions: Altered Mental Status (ED) Print Language: Luxembourger Coding Level of Care Code ED Shadowgraph Scale Operator for Deo De Paz
[2025-01-03 11:43] LABS: Hematocrit 48.7 % (37-53); Hemoglobin 16.40 g/dL (11.27-16.99); Mean Corpuscular HGB Conc 33.7 g/dL (30-55); Mean Corpuscular Hemoglobin 31.5 pg (27-33); Mean Corpuscular Volume 93.5 fl (82-101); Nucleated Red Blood Cells % 0 %; Platelet Count 144 10^3/cmm (157-399); Red Blood Count 5.21 10^6/uL (3.85-5.65); White Blood Count 6.88 10^3/uL (3.29-11.43)
[2025-01-03 12:04] LABS: Alanine Aminotransferase 16 U/L (0-41); Albumin Level 4.7 g/dL (3.5-5.2); Alkaline Phosphatase 90 U/L (40-130); Anion Gap 16.9 (5-19); Aspartate Amino Transferase 23 U/L (0-40); Blood Urea Nitrogen 26 mg/dL (8-23); Calcium 9.7 mg/dL (8.5-10.5); Carbon Dioxide 27 mmol/L (22-29); Chloride 102 mmol/L (98-107); Globulin 3.2 g/dL (1.3-4.6); Glucose 109 mg/dL (65-115); Magnesium 2.3 mg/dL (1.7-2.3); Osmolality Calculated 299 mOsm/kg (285-295); Potassium 3.9 mmol/L (3.5-5.1); Sodium 142 mmol/L (136-145); Thyroid Stimulating Hormone 2.16 uIU/mL (0.27-4.20); Total Protein 7.9 g/dL (6.6-8.7)
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
--- OUTSIDE RECORDS SUMMARY | 2025-01-03 12:20 | XMS_ITS | Patient Health Record ---
Author Organization [facility] Address [address] [place] [address] Care Team Providers Care Director Global Medical Affairs Name Role Phone Terrance Leiva MD Primary Care Provider AVRIL Flowers Unavailable [phone] IVÁN STILL Unavailable [phone] SARITA RODGERS Unavailable [phone] Allergies No Known Allergies Reason For Referral No Information Medications Medication SIG (Take, Route, Frequency, Duration) Notes Start Date End Date Status Atorvastatin Calcium 20 MG 1 tablet Oral ly Once a day Active Levothyroxine Sodium 100 MCG 1 tablet in the morning on an empty stomach Orally Once a day Active Sertraline HCl 100 MG 1 tablet Orally On ce a day Active Memantine HCl 5 MG 1 tablet Orally Once a day Active amLODIPine Benzoate 1 MG/ML 5 mL Orally Once a day Active Lisinopril 20 MG 1 tablet Orally Once a day Active Cipro 500 MG 1 tablet Orally ever y 12 hrs for 10 days 01/02/2025 01/12/2025 Active Problems Problem Type SNOMED Code ICD Code Onset Dates Problem Status W/U Status Risk Notes Problem History of malignant neoplasm of prostate (420685366) History of prostate cancer (Z85.46) Active confirmed Problem History of radiation therapy (043554787) History of radiation therapy (Z92.3) Active confirmed Problem SI - Stress incontinence (89031067) Stress incontinence (N39.3) Active confirmed Vital Signs Heart Rate 64 /min 12/21/2024 Height-cm 172.72 cm 12/21/2024 Blood pressure diastolic 68 mm Hg 12/21/2024 Weight-kg 79.83 kg 12/21/2024 Height 68 in 12/21/2024 Blood pressure systolic 145 mm Hg 12/21/2024 Weight 176 lbs 12/21/2024 BMI 26.76 kg/m2 12/21/2024 Procedures Procedure Date Ordered Date Performed Result Body Sit e Bladder Scan 12/21/2024 N/A Encounters Encounter Location Date Provider Diagnosis [facility], [employer] [address] [facility] [address] 12/21/2024 IVÁN CASTILLOCHENS Urinary retention R3 3.9 ; Stress incontinence N39.3 ; 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 ; History of prostate cancer Z85.46 ; History of prostatectomy Z90.79 and History of radiation therapy Z92.3 [facility], [place] [employer] [address] [facility] [place] [address] 12/13/2024 IVÁN STILL [employer], [place] [employer] [address] [facility] [address] 01/02/2025 SARITA RODGERS Assessments Encounter Date Diagnosis (ICD Code) Assessment Notes Treatment Notes Treatment Clinical Notes Section Notes 12/21/2024 Stress incontinence (ICD-10 - N39.3) Pt with complicated urologic history s/p prostatectomy, salvage XRT and ADT with undetectable PSA who has had severe CHRISTA since his prostatectomy. He developed recurrent bulbar urethral stricture and stopped performing daily self-dilation 2 years ago. He has not had any recurrent retention,but had intermittent episode and tried to pass catheter unsuccessfully. He is interested in getting another castillo clamp because that managed his daily CHRISTA well. Prior to getting clamp, recommend scheduling for cystoscopy with possible urethral dilation to prevent urinary retention, then we start back on clamping. He denies any hematuria, bladder pain. PSA undetectable last week. 12/21/2024 Urinary retention (ICD-10 - R33.9) Pt with complicated urologic history s/p prostatectomy, salvage XRT and ADT with undetectable PSA who has had severe CHRISTA since his prostatectomy. He developed recurrent bulbar urethral stricture and stopped performing daily self-dilation 2 years ago. He has not had any recurrent retention,but had intermittent episode and tried to pass catheter unsuccessfully. He is interested in getting another castillo clamp because that managed his daily CHRISTA well. Prior to getting clamp, recommend scheduling for cystoscopy with possible urethral dilation to prevent urinary retention, then we start back on clamping. He denies any hematuria, bladder pain. PSA undetectable last week. 12/21/2024 Postprocedural male urethral stricture (ICD-10 - N99.114) Pt with complicated urologic history s/p prostatectomy, salvage XRT and ADT with undetectable PSA who has had severe CHRISTA since his prostatectomy. He developed recurrent bulbar urethral stricture and stopped performing daily self-dilation 2 years ago. He has not had any recurrent retention,but had intermittent episode and tried to pass catheter unsuccessfully. He is interested in getting another castillo clamp because that managed his daily CHRISTA well. Prior to getting clamp, recommend scheduling for cystoscopy with possible urethral dilation to prevent urinary retention, then we start back on clamping. He denies any hematuria, bladder pain. PSA undetectable last week. 12/21/2024 History of prostate cancer (ICD-10 - Z85.46) Pt with complicated urologic history s/p prostatectomy, salvage XRT and ADT with undetectable PSA who has had severe CHRISTA since his prostatectomy. He developed recurrent bulbar urethral stricture and stopped performing daily self-dilation 2 years ago. He has not had any recurrent retention,but had intermittent episode and tried to pass catheter unsuccessfully. He is interested in getting another castillo clamp because that managed his daily CHRISTA well. Prior to getting clamp, recommend scheduling for cystoscopy with possible urethral dilation to prevent urinary retention, then we start back on clamping. He denies any hematuria, bladder pain. PSA undetectable last week. 12/21/2024 History of prostatectomy (ICD-10 - Z90.79) Pt with complicated urologic history s/p prostatectomy, salvage XRT and ADT with undetectable PSA who has had severe CHRISTA since his prostatectomy. He developed recurrent bulbar urethral stricture and stopped performing daily self-dilation 2 years ago. He has not had any recurrent retention,but had intermittent episode and tried to pass catheter unsuccessfully. He is interested in getting another castillo clamp because that managed his daily CHRISTA well. Prior to getting clamp, recommend scheduling for cystoscopy with possible urethral dilation to prevent urinary retention, then we start back on clamping. He denies any hematuria, bladder pain. PSA undetectable last week. 12/21/2024 History of radiation therapy (ICD-10 - Z92.3) Pt with complicated urologic history s/p prostatectomy, salvage XRT and ADT with undetectable PSA who has had severe CHRISTA since his prostatectomy. He developed recurrent bulbar urethral stricture and stopped performing daily self-dilation 2 years ago. He has not had any recurrent retention,but had intermittent episode and tried to pass catheter unsuccessfully. He is interested in getting another castillo clamp because that managed his daily CHRISTA well. Prior to getting clamp, recommend scheduling for cystoscopy with possible urethral dilation to prevent urinary retention, then we start back on clamping. He denies any hematuria, bladder pain. PSA undetectable last week. Plan Of Treatment Pending Test Test Name Order Date Urinalysis, Routine 12/21/2024 Bladder Scan 12/21/2024 Next Appt Details Provider Name:SARITA Odell, 01/05/2025 02:20:00 PM, [address] [place], [address], Insurance Providers Payer Name Payer Address Payer Phone Subscriber Number Group Number Insured Name Patient Relationship to Insured Coverage Start Date Coverage End Date [place] Medicare [address] [facility] [place] [id number] Scotty Marsh Self - patient is the insured for Life Secondary to Medicare [address] [place], [place] [id number] Scotty Marsh Self - patient is the insured Medical (General) History Medical History History ICD Code Prostate cancer depression Erectile dysfunction Diabetes Surgical History Surgery Date(Month/Year) heart stent x3 prostatectomy Trigger finger back surgery Hospitalization History Reason Date(Month/Year)
--- OUTSIDE RECORDS SUMMARY | 2025-01-03 12:20 | XMS_ITS | Clinical Summary ---
Author Organization [facility] Address [address] Cooper: [place] [address] Care Team Providers Care Inserting Press Operator Name Role Phone Unavailable Primary Care Provider Unavailabl e Allergies Active Allergy Reactions Criticality Noted Date Comments Loratadine-Pseudoephedrine Delirium Medium 9 Immunizations Immunization Administration Dates Next Due (ADACEL/BOOSTRIX)(10 YR UP) TDAP VACCINE, 0.5ML, IM 02/23/2018 Social History Tobacco Use Types Packs/Day Years Used Date Smoking Tobacco: Never Smokeless Tobacco: Never Alcohol Use Standard Drinks/Week Comments Yes 0 (1 standard drink = 0.6 oz pur e alcohol) Sex and Gender Information Value Date Recorded Sex Assigned at Not on file 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 Gender Identity Not on file Sexual Orientation Not on file Last Filed Vital Signs Vital Sign Reading Time Taken Comments Blood Pressure 160/60 02/23/2018 2:00 PM CDT Pulse 78 02/23/2018 3:00 PM CDT Temperature 36.9 C (98.5 F) 02/23/2018 1:16 PM CDT Respiratory Rate 18 02/23/2018 3:00 PM CDT Oxygen Saturation - - Inhaled Oxygen Concentration - - Weight 83.9 kg (185 lb) 02/23/2018 1:16 PM CDT Height 172.7 cm (5' 8 ) 02/23/2018 1:16 PM CDT Body Mass Index 28.13 02/23/2018 1:16 PM CDT Plan of Treatment Health Maintenance Due Date Last Done Comments PNEUMOCOCCAL VACCINE 50+ YEARS (1 of 1 - PCV) 06/19/19 87 ZOSTER VACCINE (1 of 2) 1987 RSV VACCINE (60+ or ) (1 - 1-dose 75+ series) 2012 INFLUENZA VACCINE (#1) 2025 DTAP/TDAP/TD VACCINES (2 - Td or Tdap) 02/24/2028
--- OUTSIDE RECORDS SUMMARY | 2025-01-03 12:21 | XMS_ITS | Clinical Summary ---
Author Organization [facility] Address [address] [place] [address] Care Team Providers Care Punchboard Stuffer Name Role Phone Unavailable Primary Care Provider Unavailabl e Allergies Active Allergy Reactions Criticality Noted Date Comments Loratadine-Pseudoephedrine Delirium Medium 9 Medications LISINOPRIL PO Take by mouth. A ctive METFORMIN HCL (METFORMIN PO) Take by mouth. Active SIMVASTATIN (ZOCOR PO) Take by mouth. Acti ve aspirin (JEN) 81 mg Oral Tab Take 81 mg by mouth daily. Active FLUTICASONE PROPIONATE (FLONASE NA) Administer in each nostril. Active ASCORBIC ACID (VITAMIN C PO) Take by mouth. Active GREEN TEA LEAF EXTRACT (GREEN TEA PO) Take by mouth. Activ e RED YEAST RICE EXTRACT PO Take by mouth. Acti ve INSULIN GLARGINE,HUM.RE C.ANLOG (LANTUS SC) Inject by subcutaneous injection. Active LEVOTHYROXINE SODIUM (LEVOTHYROXINE PO) Take by mouth. Activ e BICALUTAMIDE (CASODEX PO) Take by mouth. Ac tive DONEPEZIL HCL (ARICEPT PO) Take by mouth. Ac tive OMEGA-3 FATTY ACIDS (FISH OIL PO) Take by mouth. Activ e fluticasone (FLONASE) 50 mcg/spray Both Nostril SpSn Administer 2 Sprays in each nostril daily. Active cycloSPORINE (RESTASIS) 0.05 % OP emulsion 1 Drop 2 times daily. Active ascorbic acid (ACEROLA C) 500 mg Oral Chew Take 500 mg by mouth daily. Active LANCETS,ULTRA THIN MISC by Misc.(Non-Drug; Combo Route) route. Active clobetasol (TEMOVATE) 0.05 % Topical Oint Apply to affected area 2 times daily. Apply twice daily under occulusion x 2 weeks. 30 Gram 0 2 Active clobetasol (TEMOVATE) 0.05 % Topical Oint Apply to affected area 2 times daily. 15 Gram 3 3 Active triamcinolone acetonide (KENALOG) 0.1 % Ointment Apply to affected area 2 times daily. 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
--- OUTSIDE RECORDS SUMMARY | 2025-01-03 12:21 | XMS_ITS | Encounter Summary ---
Author Organization [facility] Address [address] [place] [address] Care Team Providers Care Curb Supervisor Name Role Phone Unavailable Primary Care Provider Unavailabl e Encounter Details Date Type Department Care Team (Late st Contact Info) Description 05/22/2004 Outpatient Historical [facility] [address] [place] [phone] Mick Salazar S, OD [address] [place] [phone] DIABETES MELLITUS TYPE II-UNCOMPL ([facility]) (Primary Dx); SENILE CATARACT NOS Social History Tobacco Use Types Packs/Day Years Used Date Smoking Tobacco: Never Assessed Sex and Gender Information Value Date Recorded Sex Assigned at Not on file 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
--- OUTSIDE RECORDS SUMMARY | 2025-01-03 12:21 | XMS_ITS | Encounter Summary ---
Author Organization [facility] Address [address] [place] [address] Care Team Providers Care Senior Ui Ux Designer Name Role Phone Unavailable Primary Care Provider Unavailabl e Encounter Details Date Type Department Care Team (Late st Contact Info) Description 03/04/2007 Outpatient Historical [facility] 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
--- NOTE | 2025-01-03 13:30 | PC.NURSE ---
attempted jones catheter with resistance and unable to advance. notified provider and called warehouse stocker to obtain coude jones. house sup stated she would bring down. gave report to SHAHLA Ruiz and notified of coude and that house sup would bring down.
--- NOTE | 2025-01-03 13:45 | PC.NURSE ---
this nurse attempted jones insertion with a coude and was unsuccessful. provider notified.
[2025-01-03 14:11] VITALS: BP 127/97; PULSE 59; RESP 16; O2SAT 97
[2025-01-03 14:40] VITALS: BP 148/107; PULSE 56; RESP 18; O2SAT 98
[2025-01-03 16:23] VITALS: BMI 24.7
[2025-01-03 16:30] VITALS: BP 198/82; PULSE 80; RESP 17; TEMP 36.9; O2SAT 90
--- NOTE | 2025-01-03 16:36 | PM.HP ---
Providers/Chief Complaint Admitting Physician: Leanne Ulloa MD Primary Care Provider: Terrance Leiva MD Chief Complaint: AMS History of Present Illness Scotty Marsh is a 89 year old male With past medical Alzheimer's dementia, history of prostate cancer status post prostatectomy, coronary disease status post PCI, thyroid disease sleep apnea, urinary anastomotic stricture, diabetes mellitus, hypertension presented to the hospital today for altered mental status. Family states that he could not get up out of his chair today. He could not walk. They said recently they were at her ER for urinary retention. Patient was supposed to be self catheterizing however he was not doing so. He also had hematuria. Family also notes blood in the bathroom possibly from dribbling. Patient is unable to provide any history at this time other than review of systems. Denies chest pain diarrhea dysphagia cough. Family denies fever. Multiple attempts have been made to place a Alvarado catheter in ER and bedside on medical surgical floor however even pediatric catheter could not be placed. Patient is incontinent of urine. Bladder scan showed 100 cc. Urinalysis has been ordered however unable to obtain sample due to patient being incontinent. Medications/Allergies Home Medications ?Medication ?Instructions ?Recorded ?Confirmed ?Last Taken ?Type atorvastatin 20 mg tablet (Lipitor) 20 mg PO BEDTIME 07/12/19 01/03/25 01/02/25 History insulin lispro 100 unit/mL See Rx Instructions .Route 06/06/20 01/03/25 01/02/25 History subcutaneous pen (Humalog KwikPen .COMPLEX see pharmacy comments (U-100) Insulin) lisinopril 20 mg tablet 20 mg PO DAILY PRN Blood Pressure 06/06/20 01/03/25 01/02/25 History sertraline 50 mg tablet (Zoloft) 50 mg PO DAILY 08/20/20 01/03/25 01/02/25 History insulin glargine 100 unit/mL (3 60 unit SUBCUT QAM 11/15/20 01/03/25 01/02/25 History mL) subcutaneous pen (Lantus Solostar U-100 Insulin) levothyroxine 100 mcg tablet 100 mcg PO DAILY 11/15/20 01/03/25 01/02/25 History (Synthroid) amlodipine 5 mg tablet 5 mg PO DAILY 01/03/25 01/03/25 01/02/25 History ciprofloxacin HCl 500 mg tablet 500 mg PO Q12H 01/03/25 01/03/25 01/03/25 08:00 History vit C 250 mg-vit E 90 mg-zinc 40 1 tab PO BID 01/03/25 01/03/25 01/02/25 History mg-copper 1 [id number] capsule (PreserVision AREDS-2) Allergies Allergy/AdvReac Type Severity Reaction Status Date / Time loratadine (From Claritin) Allergy NA Verified 11/01/24 15:19 PFSH Acute PFSH: Medical History (Updated 01/03/25 @ 18:13 by Leanne Ulloa MD) History of prostate cancer Vertigo Sleep apnea Urinary anastomotic stricture Surgical History S/P trigger finger release Date of procedure: March 15, 2024 Procedure done: Release left ring trigger finger. Surgeon: Apurva Carpio MD History of back surgery S/P tonsillectomy S/P vasectomy History of prostatectomy Family History Family/Other CAD (coronary artery disease) Father , in his 70's Alzheimer disease Mother , in her 90's CAD (coronary artery disease) Social History Smoking and tobacco/nicotine status: never used tobacco/nicotine Alcohol intake: never Substance/Drug Use: never Marital status: Current occupational status: retired Vitals/I&O/Wt Last Vital Signs Temp 98.3 F 01/03/25 11:24 Pulse 56 L 01/03/25 14:40 Resp 18 01/03/25 14:40 BP 148/107 01/03/25 14:40 Pulse Ox 98 01/03/25 14:40 O2 Del Method Room Air 01/03/25 11:24 Physical Exam Narrative: General: Alert oriented x2, patient seen laying in bed appearing comfortable at this time. Pleasantly confused. HEENT: Normocephalic, atraumatic, EOMI, breathing room air Cardio: Regular rate rhythm, normal S1-S2, Respiratory: Clear to auscultation bilaterally no wheezes or rhonchi GI: Abdomen soft, nontender, bowel sounds + Extremities: No edema bilateral lower extremity Data 01/03/25 11:25 01/03/25 11:25 A&P Assessment and plan 1. Type 2 diabetes mellitus: 2. Urinary anastomotic stricture: 3. Acute cystitis without hematuria: 4. History of prostate cancer: 5. Urinary incontinence, male, stress: 6. Altered mental status: 7. Urinary tract infection: Plan: #Altered mental status #UTI #Possible hematuria #History of prostate cancer status post prostatectomy #Urinary anastomosis to stricture #Diabetes mellitus #Hypertension #Alzheimer's dementia ? White count is normal creatinine 0.9. Check TSH, vitamin B12, ammonia level ? Check procalcitonin ? Check urinalysis and urine culture ? Patient has had pansensitive urine in the past ? pt used to follow-up with urology here with Dr. Cabello. - He is incontinent of urine. ? Neuroexam grossly nonfocal. I do not believe he is having a stroke. ? He is able to answer questions and follow commands able to move all 4 extremities. ? Unable to place a Alvarado. Patient does have a known urinary stricture. ? Bladder scan did show 100 cc urine. ? Continue on diabetic diet and placed on sliding scale insulin moderate dose intensity ? Continue home antihypertensives ? Placed on Zosyn. ? Patient's family states that he started his antibiotic which is ciprofloxacin 24 hours ago. His mentation has worsened. Antibiotic was called in over the phone by his urologist. ? They state that he is supposed to be having a cystoscopy done on 01/[address] [facility] in [facility]. ? I did call [facility] and attempt to transfer the patient however the urologist there stated that patient does not need to be transferred since he is not retaining urine at this time. [facility] also told me that earlier our ER had called them to transfer this patient however he was declined by urology. Unfortunately I was unaware of the above as it was not relayed to me. ? We will continue to manage for UTI with IV antibiotics ? Await TSH and vitamin B12 ammonia level. ? CT head negative. ? Check blood cultures ? Discussed with nursing staff to place urinary bag and attempt to get a urine sample since patient is incontinent DVT prophylaxis: Heparin SQ twice daily PDMP PDMP Reviewed: Not Reviewed Attestations Medical Necessity Statement*: Greater than 2 midnight stay for altered mental status UTI Diagnoses Type 2 diabetes mellitus E11.9 Urinary anastomotic stricture N99.89 Acute cystitis without hematuria N30.00 History of prostate cancer Z85.46 Urinary incontinence, male, stress N39.3 Altered mental status R41.82 Urinary tract infection N39.0
[2025-01-03] MEDS: heparin 5,000 unit/mL INJ 1 mL 5000 UNIT SUBCUT (17:01)
[2025-01-03 17:38] LABS: Ammonia 24 umol/L (16-60)
[2025-01-03 18:16] LABS: Procalcitonin 0.04 ng/mL (0-0.5); Thyroid Stimulating Hormone 2.30 uIU/mL (0.27-4.20); Vitamin B12 485 pg/mL (232-1245)
[2025-01-03 18:17] VITALS: BP 198/82; PULSE 80; RESP 17; TEMP 36.9
[2025-01-03 20:00] VITALS: BP 170/67; PULSE 79; RESP 17; TEMP 36.5; O2SAT 94
[2025-01-03] MEDS: piperacillin-tazobactam 3.375 GM in sodium chloride 0.9% (plus) 50 ML IV (20:05)
[2025-01-03 21:59] LABS: Estmated Average Glucose 134; Hemoglobin A1C 6.3 % (4.0-6.0)
[2025-01-04] VITALS (16 sets, daily range): BP systolic 134–178; BP diastolic 54–76; PULSE 66–90; RESP 16–19; TEMP 36.6–38.1; O2SAT 91–95
[2025-01-04] MEDS: piperacillin-tazobactam 3.375 GM in sodium chloride 0.9% (plus) 50 ML IV ×3 (03:03→19:58)
[2025-01-04] MEDS: heparin 5,000 unit/mL INJ 1 mL 5000 UNIT SUBCUT ×2 (03:04→16:44)
[2025-01-04 05:29] LABS: Add Urine Microscopic? NO
[2025-01-04 05:43] LABS: Hematocrit 45.4 % (37-53); Hemoglobin 15.50 g/dL (11.27-16.99); Mean Corpuscular HGB Conc 34.1 g/dL (30-55); Mean Corpuscular Hemoglobin 32.0 pg (27-33); Mean Corpuscular Volume 93.6 fl (82-101); Nucleated Red Blood Cells % 0 %; Platelet Count 130 10^3/cmm (157-399); Red Blood Count 4.85 10^6/uL (3.85-5.65); White Blood Count 13.07 10^3/uL (3.29-11.43)
[2025-01-04 05:51] LABS: Charge for UA Resulting for Rev
[2025-01-04 06:13] LABS: Alanine Aminotransferase 17 U/L (0-41); Albumin Level 4.1 g/dL (3.5-5.2); Alkaline Phosphatase 81 U/L (40-130); Anion Gap 22.1 (5-19); Aspartate Amino Transferase 34 U/L (0-40); Blood Urea Nitrogen 35 mg/dL (8-23); Calcium 9.0 mg/dL (8.5-10.5); Carbon Dioxide 20 mmol/L (22-29); Chloride 103 mmol/L (98-107); Creatinine Clr Calc Pharmacy 40.7038; Globulin 3.1 g/dL (1.3-4.6); Glucose 251 mg/dL (65-115); Magnesium 2.1 mg/dL (1.7-2.3); Osmolality Calculated 308 mOsm/kg (285-295); Potassium 4.1 mmol/L (3.5-5.1); Sodium 141 mmol/L (136-145); Total Protein 7.2 g/dL (6.6-8.7)
--- NOTE | 2025-01-04 06:24 | PC.NURSE ---
AT 0520 pt voided. urine dark in color with odor of blood
--- NOTE | 2025-01-04 09:20 | CT_ITS ---
WS: [id number] CT ABDOMEN PELVIS TECHNIQUE: Noncontrast CT of the abdomen and pelvis with coronal and sagittal reformatted images. CLINICAL INFORMATION: NANCY, suspect Bladder outlet obstruction COMPARISON: None. DLP: 698.[address] scans at [facility] use at least one of these dose optimization techniques: automated exposure control; mA and/or kV adjustment per patient size (includes targeted exams where dose is matched to clinical indication); or iterative reconstruction. FINDINGS: Prostate not visualized presumably resected. Diffuse bladder wall thickening can be seen with chronic cystitis or chronic bladder outlet obstruction. Diffuse bilateral perinephric edema can be seen with renal insufficiency or pyelonephritis. Contrast not administered. No hydronephrosis in either kidney. No obstructing renal or ureteral calculi. Recommend correlation for urinary tract infection. Compressive atelectasis in the lung bases. Normal noncontrast liver. Small likely cyst undersurface RIGHT hepatic lobe measuring 9 mm. Small esophageal hiatal hernia. Vascular calcification. Coronary calcification splenic artery calcification. Aortic calcification. Normal caliber abdominal aorta. Fatty atrophy of the pancreas. Normal sigmoid colon. Advanced spondylitic changes lumbar spine. Prior pedicle screw fixation. Chronic severe biconcave compression T12. Chronic compression inferior endplate T10. CT/CT abdomen pelvis wo con [id number] IMPRESSION: 1. Presumed prior prostatectomy. Prostate not visualized. 2. Diffuse circumferential bladder wall thickening with a small amount of liz ration and edema in the prevesical space suspicious for cystitis. Recommend cor relation for UTI. Bladder wall thickening can also be seen with bladder outlet obstruction. 3. Diffuse bilateral perinephric edema can be seen with renal insufficiency or pyelonephritis. No hydronephrosis. Contrast not administered. 4. No other acute findings.
--- NOTE | 2025-01-04 09:47 | PC.CHAP ---
Pastoral Care Encounter/Spiritual Assessment Type of Contact [] Declined sample carrier visit [] Patient/Family/Request visit [] Outpatient visit [] Follow-up visit [] Physician referral [] Code/Alert [] Routine visit [] Staff referral [] Actively dying [] Patient sleeping [] Family support [] [] Out of room [] Palliative care [] [x] Receiving care in room [] Pre-surgical visit [] Trauma [] Long length of stay [] ICU visit [] Other: Relational/Emotional Strength [] Patient feels connected with others/family/visitors/staff [] Distress [] Loneliness/isolation [] Abandonment Spirituality of Patient [] Person of Kay [] Attends Voodoo of their Kay [] Believes in Prayer [] Reads Bible or Methodist materials [] There are Spiritual issues to be addressed Talent Specialist Interventions [] Prayer [] Active listening [] Non-anxious presence [] Spiritual/emotional support [] Crisis/trauma care [] Spiritual counseling [] Bereavement support [] Provided bereavement packet [] Provided Bible/devotional materials [] Provided toy/stuffed animal, coloring book to patient or family member [] Provided Communion [] Anointing/Midnight [] Salvation [] Completed spiritual assessment [] Other: Impact on Illness or Injury [] Angry [] Fearful [] Anxious [] Often cries [] Exhaustion [] Unable to work [] Unable to attend jewish [] Unable to walk/stand [] Unable to read [] Unable to drive [] Unable to eat/drink [] Unable to sleep [] Unable to be with family [] Patient intubated [] Other: Summary Time spent with patient
--- NOTE | 2025-01-04 11:03 | CT_ITS ---
WS: [id number] CT HEAD TECHNIQUE: Noncontrast CT of the head obtained from the skullbase to the vertex. CLINICAL INFORMATION: Increased AMS COMPARISON: 01/03/2025 DLP: 1063.[address] scans at [facility] use at least one of these dose optimization techniques: automated exposure control; mA and/or kV adjustment per patient size (includes targeted exams where dose is matched to clinical indication); or iterative reconstruction. FINDINGS: No evidence of intracranial hemorrhage or mass effect. Ventricular system and basal cisterns are patent. Moderate small vessel changes with moderate parenchymal volume loss. Vascular calcification. Chronic encephalomalacia right inferior temporal lobe and LEFT lateral afrontal lobe unchanged. Paranasal sinuses and mastoid air cells are well aerated. .Normal visualized soft tissues. CT/CT head wo con* [id number] IMPRESSION: 1. No evidence of intracranial hemorrhage or mass effect. 2. No changes since 01/03/2025 3. Vascular calcification. 4. No acute intracranial findings.
--- NOTE | 2025-01-04 15:55 | PM.TDS ---
Transfer Summary Providers Date of Admission: 01/03/25 15:49 Date of Discharge/Transfer: 01/04/25 Attending Provider at Admission: Leanne Ulloa MD Attending Provider at Transfer: Leanne Ulloa MD Primary Care Provider: Terrance Leiva MD Transfer Plans: Anticipated date of transfer: 01/04/25. Receiving Facility: [facility]. Diagnoses at Discharge Discharge Diagnosis 1. Type 2 diabetes mellitus: 2. Urinary anastomotic stricture: 3. Acute cystitis without hematuria: 4. History of prostate cancer: 5. Urinary incontinence, male, stress: 6. Altered mental status: 7. Urinary tract infection: Reason for Visit Reason for Visit AMS Brief History: Scotty Marsh is a 89 year old male With past medical Alzheimer's dementia, history of prostate cancer status post prostatectomy, coronary disease status post PCI, thyroid disease sleep apnea, urinary anastomotic stricture, diabetes mellitus, hypertension presented to the hospital today for altered mental status. Family states that he could not get up out of his chair today. He could not walk. They said recently they were at her ER for urinary retention. Patient was supposed to be self catheterizing however he was not doing so. He also had hematuria. Family also notes blood in the bathroom possibly from dribbling. Patient is unable to provide any history at this time other than review of systems. Denies chest pain diarrhea dysphagia cough. Family denies fever. Multiple attempts have been made to place a Alvarado catheter in ER and bedside on medical surgical floor however even pediatric catheter could not be placed. Patient is incontinent of urine. Bladder scan showed 100 cc. Urinalysis has been ordered however unable to obtain sample due to patient being incontinent. Hospital Course Hospital Course Patient presented with her mental status on underlying dementia. His creatinine has gone up to 1.3 and has a leukocytosis of 13,000. He was on ciprofloxacin at home and have only taken 2 doses so far. Currently receiving Zosyn. Patient will need urological evaluation. Has been able to obtain a small urine sample which was basically hematuria. Unable to send it off for further evaluation. Does have bacteria in urine. Likely source of patient's confusion is metabolic encephalopathy secondary to UTI. Does have a urinary anastomotic stricture from the past. Discussed with urology at [facility] Dr. Feliciano who has agreed to consult on the patient once patient admitted to hospitalist service. Awaiting callback from hospitalist at this point. We will continue Zosyn in the meantime. Patient needs urological evaluation. We have not been able to place a Alvarado catheter. CT abdomen pelvis did show diffuse circumferential bladder wall thickening with small amount of induration and edema in the perivesical space suspicious for cystitis. Bladder wall thickening can also be seen with bladder outlet obstruction. Diffuse bilateral perinephric edema can be seen with renal insufficiency or pyelonephritis. No hydronephrosis. Contrast not administered. MRI brain done this morning was negative for acute stroke. Physical Exam Narrative: General: Alert oriented x1, patient seen laying in bed appearing comfortable at this time. HEENT: Normocephalic, atraumatic, EOMI, breathing room air Cardio: Regular rate rhythm, normal S1-S2, Respiratory: Clear to auscultation bilaterally no wheezes or rhonchi GI: Abdomen soft, nontender, bowel sounds + Extremities: No edema bilateral lower extremity TS Data Studies Completed and Pending Pending at discharge Category Date Time Status Blood Culture Stat Lab 01/03/25 17:00 Results Sputum Culture and Gram Stain Stat Lab 01/03/25 15:30 Uncollected Urine Culture Stat Lab 01/04/25 05:28 Received Completed Studies During Hospitalization Category Date Time Status CT abdomen pelvis wo con [id number] Stat Cat Scan 01/04/25 09:[address] head wo con* [id number] Stat Cat Scan 01/03/25 11:[address] head wo con* [id number] Urgent Cat Scan 01/04/25 11:03 Completed XR chest 1V portable [id number] Stat Exams 01/03/25 11:32 Completed Laboratory Last Values WBC 13.07 10^3/uL (3.29-11.43) H 01/04/25 05:04 RBC 4.85 10^6/uL (3.85-5.65) 01/04/25 05:04 Hgb 15.50 g/dL (11.27-16.99) 01/04/25 05:04 Hct 45.4 % (37-53) 01/04/25 05:04 MCV 93.6 fl (82-101) 01/04/25 05:04 MCH 32.0 pg (27-33) 01/04/25 05:04 MCHC 34.1 g/dL (30-55) 01/04/25 05:04 RDW 12.9 % (12.1-15.1) 01/04/25 05:04 Plt Count 130 10^3/cmm (157-399) L 01/04/25 05:04 MPV 9.4 fL (7.4-10.4) 01/04/25 05:04 Neut % (Auto) 87.3 % 01/04/25 05:04 Lymph % (Auto) 4.3 % 01/04/25 05:04 Kimball % (Auto) 7.7 % 01/04/25 05:04 Eos % (Auto) 0.0 % 01/04/25 05:04 Baso % (Auto) 0.1 % 01/04/25 05:04 Neut # (Auto) 11.42 10^3/uL (1.8-7.7) H 01/04/25 05:04 Lymph # (Auto) 0.6 10^3/uL (0.8-4.8) L 01/04/25 05:04 Kimball # (Auto) 1.0 10^3/uL (0.2-0.9) H 01/04/25 05:04 Eos # (Auto) 0.0 10^3/uL (0.0-0.8) 01/04/25 05:04 Baso # (Auto) 0.0 10^3/uL (0.0-0.1) 01/04/25 05:04 Nucleated RBC % (auto) 0 % 01/04/25 05:04 Nucleated RBCs # 0.0 /100WBC 01/04/25 05:04 Sodium 141 mmol/L (136-145) 01/04/25 05:04 Potassium 4.1 mmol/L (3.5-5.1) 01/04/25 05:04 Chloride 103 mmol/L (98-107) 01/04/25 05:04 Carbon Dioxide 20 mmol/L (22-29) L 01/04/25 05:04 Anion Gap 22.1 (5-19) H 01/04/25 05:04 BUN 35 mg/dL (8-23) H 01/04/25 05:04 Creatinine 1.3 mg/dL (0.7-1.2) H 01/04/25 05:04 GFR Calculation Not Reportable 01/04/25 05:04 Glucose 251 mg/dL (65-115) H 01/04/25 05:04 POC Glucose 305 mg/dL (70-110) H 01/04/25 10:50 Estimat Average Glucose 134 01/03/25 11:25 Hemoglobin A1c 6.3 % (4.0-6.0) H 01/03/25 11:25 Calculated Osmolality 308 mOsm/kg (285-295) H 01/04/25 05:04 Calcium 9.0 mg/dL (8.5-10.5) 01/04/25 05:04 Magnesium 2.1 mg/dL (1.7-2.3) 01/04/25 05:04 Total Bilirubin 0.8 mg/dL (0.15-1.2) 01/04/25 05:04 AST 34 U/L (0-40) 01/04/25 05:04 ALT 17 U/L (0-41) 01/04/25 05:04 Alkaline Phosphatase 81 U/L (40-130) 01/04/25 05:04 Ammonia 24 umol/L (16-60) 01/03/25 17:00 Total Protein 7.2 g/dL (6.6-8.7) 01/04/25 05:04 Albumin 4.1 g/dL (3.5-5.2) 01/04/25 05:04 Globulin 3.1 g/dL (1.3-4.6) 01/04/25 05:04 Vitamin B12 485 pg/mL (232-1245) 01/03/25 17:00 Procalcitonin 0.04 ng/mL (0-0.5) 01/03/25 17:00 TSH 2.30 uIU/mL (0.27-4.20) 01/03/25 17:00 Urine Color Other (Yellow) A 01/04/25 05:28 Urine Appearance Cloudy (CLEAR) A 01/04/25 05:28 Urine pH Not Reportable 01/04/25 05:28 Ur Specific [place] Not Reportable 01/04/25 05:28 Urine Protein Not Reportable 01/04/25 05:28 Urine Glucose (UA) Not Reportable 01/04/25 05:28 Urine Ketones Not Reportable 01/04/25 05:28 Urine Blood Not Reportable 01/04/25 05:28 Urine Nitrate Not Reportable 01/04/25 05:28 Urine Bilirubin Not Reportable 01/04/25 05:28 Urine Urobilinogen Not Reportable 01/04/25 05:28 Ur Leukocyte Esterase Not Reportable 01/04/25 05:28 Urine RBC Too numerous to cnt /hpf (0-2) H 01/04/25 05:28 Urine WBC 0-4 /hpf (0-5) H 01/04/25 05:28 Ur Squamous Epith Cells None /hpf (0-5) 01/04/25 05:28 Amorphous Sediment 2+ /hpf 01/04/25 05:28 Urine Bacteria Few /hpf (NONE) 01/04/25 05:28 Urine Mucus 2+ /hpf 01/04/25 05:28 Radiology Impressions Chest X-Ray 01/03/25 11:32 IMPRESSION: No acute findings. Abdomen/Pelvis CT 01/04/25 09:20 IMPRESSION: 1. Presumed prior prostatectomy. Prostate not visualized. 2. Diffuse circumferential bladder wall thickening with a small amount of induration and edema in the prevesical space suspicious for cystitis. Recommend correlation for UTI. Bladder wall thickening can also be seen with bladder outlet obstruction. 3. Diffuse bilateral perinephric edema can be seen with renal insufficiency or pyelonephritis. No hydronephrosis. Contrast not administered. 4. No other acute findings. Head CT 01/04/25 11:03 IMPRESSION: 1. No evidence of intracranial hemorrhage or mass effect. 2. No changes since 01/03/2025 3. Vascular calcification. 4. No acute intracranial findings. Recent Clincial Data Last Vital Signs Temp 98.4 F 01/04/25 12:10 Pulse 68 01/04/25 12:10 Resp 19 H 01/04/25 12:10 BP 170/76 01/04/25 12:10 Pulse Ox 92 01/04/25 10:46 O2 Del Method Room Air 01/04/25 10:46 Vital Signs Temp Pulse Resp BP Pulse Ox O2 Del Method 01/04/25 12:10 98.4 F 68 19 H 170/76 01/04/25 10:46 98.4 F 68 19 H 170/76 92 Room Air 01/04/25 10:40 98.9 F 69 16 162/68 91 Room Air 01/04/25 10:18 98.4 F 68 19 H 170/76 01/04/25 09:33 66 16 93 Room Air 01/04/25 08:34 99.1 F 69 18 170/69 01/04/25 07:30 99.1 F 69 18 170/69 94 01/04/25 07:27 99.1 F 69 18 170/69 94 Room Air 01/04/25 04:00 98.3 F 70 16 156/70 95 Room Air Intake & Output/Weight 01/02/25 01/03/25 01/04/25 01/05/25 06:59 06:59 06:59 06:59 Intake Total 50 / 50 1396.25 / 1396.25 Output Total 0 / 0 Balance 50 / 50 1396.25 / 1396.25 Weight 77.111 kg Vitals Last Vital Signs Temp 98.4 F 01/04/25 12:10 Pulse 68 01/04/25 12:10 Resp 19 H 01/04/25 12:10 BP 170/76 01/04/25 12:10 Pulse Ox 92 01/04/25 10:46 O2 Del Method Room Air 01/04/25 10:46 TS Medications Medications Albuterol/Ipratropium (Ipratropium-Albuterol 3 Ml Neb) 3 ml INHALATION Q6H PRN PRN Reason: SHORTNESS OF BREATH Amlodipine Besylate (Amlodipine 5 Mg Tablet) 5 mg PO DAILY [facility] Last Admin: 01/04/25 09:13 Dose: 5 mg Glucagon (Glucagon 1 Mg/Ml Kit 1 Ml) 1 mg IM ONCE PRN; Protocol PRN Reason: Adult Acute Hypoglycemia Nursing Prot. Heparin Sodium (Porcine) (Heparin 5,000 Unit/Ml Inj 1 Ml) 5,000 unit SUBCUT Q12H [facility] Last Admin: 01/04/25 03:04 Dose: 5,000 unit Sodium Chloride (Sodium Chloride 0.9%) 1,000 mls @ 125 mls/hr IV .Q8H [facility] Last Admin: 01/04/25 09:14 Dose: 75 mls/hr Dextrose (D5w) 500 mls @ 0 mls/hr IV ONCE PRN; Protocol PRN Reason: Adult Acute Hypoglycemia Prot Dextrose (D10w) 125 mls @ 750 mls/hr IV PRN PRN; Protocol PRN Reason: Adult Acute Hypoglycemia Nursing Protocol Dextrose (D10w) 250 mls @ 1,000 mls/hr IV PRN PRN; Protocol PRN Reason: Adult Acute Hypoglycemia Nursing Protocol Piperacillin Sod/Tazobactam (Sod 3.375 gm/ Sodium Chloride) 50 mls @ 12.5 mls/hr IV Q8H [facility] Last Admin: 01/04/25 12:26 Dose: 12.5 mls/hr Insulin Human Lispro (Insulin Lispro 100 Unit/1 Ml) 0 unit SUBCUT WM&BEDTIME MIRNA; Protocol Last Admin: 01/04/25 12:27 Dose: 12 unit Levothyroxine Sodium (Levothyroxine 100 Mcg Tablet) 100 mcg PO QAM [facility] Last Admin: 01/04/25 05:34 Dose: 100 mcg Lisinopril (Lisinopril 20 Mg Tablet) 20 mg PO DAILY [facility] Last Admin: 01/04/25 09:13 Dose: 20 mg Ondansetron HCl (Ondansetron 2 Mg/Ml Sdv 2 Ml) 4 mg IVP Q8H PRN PRN Reason: vomiting, or N/V if npo Sertraline HCl (Sertraline 50 Mg Tablet) 50 mg PO DAILY [facility] Last Admin: 01/04/25 09:13 Dose: 50 mg Allergies loratadine (From Claritin) Allergy (Verified 11/01/24 15:19) NA Home Medications atorvastatin 20 mg tablet (Lipitor) 20 mg PO BEDTIME 07/12/19 [History Confirmed 01/03/25] insulin lispro 100 unit/mL subcutaneous pen (Humalog KwikPen (U-100) Insulin) See Rx Instructions .Route .COMPLEX see pharmacy comments 06/06/20 [History Confirmed 01/03/25] lisinopril 20 mg tablet 20 mg PO DAILY PRN Blood Pressure 06/06/20 [History Confirmed 01/03/25] sertraline 50 mg tablet (Zoloft) 50 mg PO DAILY 08/20/20 [History Confirmed 01/03/25] insulin glargine 100 unit/mL (3 mL) subcutaneous pen (Lantus Solostar U-100 Insulin) 60 unit SUBCUT QAM 11/15/20 [History Confirmed 01/03/25] levothyroxine 100 mcg tablet (Synthroid) 100 mcg PO DAILY 11/15/20 [History Confirmed 01/03/25] amlodipine 5 mg tablet 5 mg PO DAILY 01/03/25 [History Confirmed 01/03/25] ciprofloxacin HCl 500 mg tablet 500 mg PO Q12H 01/03/25 [History Confirmed 01/03/25] vit C 250 mg-vit E 90 mg-zinc 40 mg-copper 1 [id number] capsule (PreserVision AREDS-2) 1 tab PO BID 01/03/25 [History Confirmed 01/03/25] Discharge Plan Discharge Patient Disposition: Xfer Short-Term Hosp Condition: Stable Prescriptions: No Action sertraline [Zoloft] 50 mg tablet 50 mg PO DAILY atorvastatin [Lipitor] 20 mg tablet 20 mg PO BEDTIME insulin lispro [Humalog KwikPen Insulin] 100 unit/mL insulin pen See Rx Instructions .ROUTE .COMPLEX Rx Instructions: 26 unit subcutaneously qam, 24 units at noon,24 units qpm and will take 10-15 units extra prn lisinopril 20 mg tablet 20 mg PO DAILY PRN (Reason: Blood Pressure) levothyroxine [Synthroid] 100 mcg tablet 100 mcg PO DAILY insulin glargine [Lantus Solostar U-100 Insulin] 100 unit/mL (3 mL) insulin pen 60 unit SUBCUT QAM amlodipine 5 mg tablet 5 mg PO DAILY ciprofloxacin HCl 500 mg tablet 500 mg PO Q12H PreserVision AREDS-2 250-90-40-1 mg Capsule 1 tab PO BID Referrals: Terrance Leiva MD [Primary Care Provider, [facility]] Patient Instructions: Altered Mental Status (ED) Transfer Attestations Time Spent in Transfer Care: greater than 30 min Quality Metrics Clinical Quality Measures [ No reported AMI, CVA or VTE this stay] Coding Level of Care Code Acute Code for Chg Fwd Diagnoses Type 2 diabetes mellitus E11.9 Urinary anastomotic stricture N99.89 Acute cystitis without hematuria N30.00 History of prostate cancer Z85.46 Urinary incontinence, male, stress N39.3 Altered mental status R41.82 Urinary tract infection N39.0
--- NOTE | 2025-01-04 20:08 | PC.NURSE ---
Called report to Ana Montana RN at [facility].
--- NOTE | 2025-01-04 23:09 | PC.NURSE ---
patient picked up for transport following behind all he had for belongings was glasses per .
== END 2025-01-04 23:08 | disposition short-term general hospital (02) | DRG 698 ==
LOC: ER 15:09 → MEDSURG 15:57
PROVIDERS: Admitting Provider Internal Medicine; Emergency Provider Emergency Medicine; PCP Family Medicine; Visit Provider Internal Medicine
DX: N32.0 Bladder-neck obstruction (principal); G93.41 Metabolic encephalopathy; N30.01 Acute cystitis with hematuria; E11.9 Type 2 diabetes mellitus without complications; N39.3 Stress incontinence (female) (male); R41.82 Altered mental status, unspecified; G30.9 Alzheimer's disease, unspecified; F02.80 Dementia in other diseases classified elsewhere, unspecified severity, without behavioral disturbance, psychotic disturbance, mood disturbance, and anxiety; I25.10 Atherosclerotic heart disease of native coronary artery without angina pectoris; E07.9 Disorder of thyroid, unspecified; G47.30 Sleep apnea, unspecified; Z79.4 Long term (current) use of insulin; Z85.46 Personal history of malignant neoplasm of prostate; Z95.5 Presence of coronary angioplasty implant and graft; Z90.79 Acquired absence of other genital organ(s)
CPT/HCPCS: 36415; 36416; 70450; 71045; 74176; 80053; 81003; 82140; 82607; 82962; 83036; 83735; 84145; 84443; 85025; 87040; 87086; 96372; 97167; 97535; 99285; 99291; J1644; J1815; J2543; J7030; J9999

== ENCOUNTER 2025-01-16 21:02 | Emergency (ER) | payer MEDICARE, OTHER, SELFPAY ==
--- OUTSIDE RECORDS SUMMARY | 2025-01-05 09:20 | XMS_ITS ---
Author Organization [employer] Address [address] [place] [address] Care Team Providers Care Wearing Apparel Folder Name Role Phone Terrance Leiva MD Primary Care Provider AVRIL Flowers Unavailable [phone] SARITA RODGERS Unavailable [phone] REASON FOR VISIT cysto w/dilation/per Zoë Encounters Encounter Location Date Provider Diagnosis [facility] [address] [place] [address] 01/05/2025 SARITA RODGERS Urinary retention R3 3.9 ; Stress incontinence N39.3 ; 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 ; History of prostate cancer Z85.46 ; History of prostatectomy Z90.79 and History of radiation therapy Z92.3 Assessments Encounter Date Diagnosis (ICD Code) Assessment Notes Treatment Notes Treatment Clinical Notes Section Notes 01/05/2025 Urinary retention (ICD-10 - R33.9) 01/05/2025 Stress incontinence (ICD-10 - N39.3) 01/05/2025 Postprocedural male urethral stricture (ICD-10 - N99.114) 01/05/2025 History of prostate cancer (ICD-10 - Z85.46) 01/05/2025 History of prostatectomy (ICD-10 - Z90.79) 01/05/2025 History of radiation therapy (ICD-10 - Z92.3) Plan Of Treatment Pending Test Test Name Order Date Urinalysis, Routine 01/05/2025 Next Appt Details Provider Name:SARITA Odell, 02/09/2025 11:00:00 AM, [address] [place], [address], Progress Notes * Scotty MARSH DDOB:1935 ( 89 yo M)Acc No.[id number]:01/05/2025 Patient: Scotty CAMERON Provider: Reny RODGERS MD :1935 A ge:89 Y S ex:Male Date:01/05/2025 Address:[address] [place], [place] [id number] Pcp:Terrance Leiva MD Subjective: * Chief Complaints: * 1 . cysto w/dilation/per Zoë. * HPI: * : Pt is an 89yoM who has been referred by Dr. Leiva for possible urinary retention. He has a long and complex urologic history. He is a previous patient of Dr. Cabello with a dx of prostate cancer. He was treated with radical prostatectomy >25 years ago in [place] followed by salvage XRT, hormone manipulation, and urethral sling. His and daughter supplement history. They state his sling never workedand he has had severe stress incontinence and wore a Gifford clamp for years with good success. He also has a h/o bulbar urethral stricture that has required multiple dilations in the past and was supposed to be on daily self dilation CIC regimen, but has not been performing as he should the last two years. PSA on 12/13/24 was <0.04. He states since having back surgery 10+ years ago, he lost even the sensation/urge to voidand he just goes into a diaper. He wears 2-3 diapers per day. Two weeks ago, he suddenly starting feeling the urge to void with frequency q10-15 min. He assumed he was in retention and tried to pass a catheter and could not pass it. He started having urethral bleeding. He was seen in the ERand they told them that his bladder was empty and treated him for a UTI. No h/o recurrent UTIs. He is no longer having frequency and has returned to baseline functional incontinence. Here today for further evaluation of the anatomy with Cystoscopy with dilation. I ncontinence: Urinary Incontinence A ssessment: P resent, P kam of care documented: Y es, T ype of plan of care: R eassess at follow-up visit see HPI and plan. * Medical History: Objective: * Vitals: Assessment: * Assessment: 1. U rinary retention - R33.9 (Primary) 2 . S tress incontinence - N39.3? 3. P ostprocedural male urethral stricture - N99.114 4 . H istory of prostate cancer - Z85.46 5 . H istory of prostatectomy - Z90.79 & #160; 6 . H istory of radiation therapy - Z92.3 Plan: * Treatment: * Procedure Codes: 8 1003 URINALYSIS, AUTO, W/O SCOPE * Billing Information: * Visit Code: * Procedure Codes: 08389 URINALYSIS, AUTO, W/O SCOPE. * Electronic signature of AUST IN MD ANA MARIA on 01/16/2025 at 09:12 PM CDT Sign off status: Pending * Provider: Reny RODGERS MD Date: 01/05/2025 Generated for Leonela kohler/Savage/Grace on: 01/16/2025 09:12 PM CDT History and Physical Notes * HPI (History of Present Illness) Category Sub-Category Detail Notes Category Not es Incontinence Urinary Incontinence Assessment:: Present Plan of care documented:: Yes Type of plan of care:: Reassess at follow-up visit see HPI and plan Pt is an 89yoM who has been referred by Dr. Leiva for possible urinary retention. He has a long and complex urologic history. He is a previous patient of Dr. Cabello with a dx of prostate cancer. He was treated with radical prostatectomy >25 years ago in [place] followed by salvage XRT, hormone manipulation, and urethral sling. His and daughter supplement history. They state his sling never workedand he has had severe stress incontinence and wore a Gifford clamp for years with good success. He also has a h/o bulbar urethral stricture that has required multiple dilations in the past and was supposed to be on daily self dilation CIC regimen, but has not been performing as he should the last two years. PSA on 12/13/24 was <0.04. He states since having back surgery 10+ years ago, he lost even the sensation/urge to voidand he just goes into a diaper. He wears 2-3 diapers per day. Two weeks ago, he suddenly starting feeling the urge to void with frequency q10-15 min. He assumed he was in retention and tried to pass a catheter and could not pass it. He started having urethral bleeding. He was seen in the ERand they told them that his bladder was empty and treated him for a UTI. No h/o recurrent UTIs. He is no longer having frequency and has returned to baseline functional incontinence. Here today for further evaluation of the anatomy with Cystoscopy with dilation
--- OUTSIDE RECORDS SUMMARY | 2025-01-13 06:00 | XMS_ITS ---
Author Organization [facility] Address [address] [place] [address] Care Team Providers Care Food Preparation Kitchen Aide Name Role Phone Terrance Leiva MD Primary Care Provider RENÉ Flowers Unavailable [phone] René Willis Unavailable [phone] Allergies No Known Allergies REASON FOR VISIT HFU w/VT Medications Medication SIG (Take, Route, Frequency, Duration) Notes Start Date End Date Status Levothyroxine Sodium 100 MCG 1 tablet in the morning on an empty stomach Orally Once a day Active Sertraline HCl 100 MG 1 tablet Orally On ce a day Active Atorvastatin Calcium 20 MG 1 tablet Oral ly Once a day Active amLODIPine Benzoate 1 MG/ML 5 mL Orally Once a day Active Lisinopril 20 MG 1 tablet Orally Once a day Active Memantine HCl 5 MG 1 tablet Orally Once a day Active Social History Tobacco Use: Social History Observation Description Date Details (start date - stop date) Never Smoker NA - NA Tobacco Control (Standard) Question Answer Notes Tobacco use: Nonsmoker AUDIT-C (Standard) Question Answer Notes Did you have a drink containing alcohol in the p ast year? No Points 0 Interpretation Negative Vital Signs Blood pressure systolic 117 mm Hg 01/14/20 25 Blood pressure diastolic 63 mm Hg 025 Heart Rate 55 /min 01/13/2025 Height 68 in 01/13/2025 Weight 184 lbs 01/13/2025 BMI 27.97 kg/m2 01/13/2025 Height-cm 172.72 cm 01/13/2025 Weight-kg 83.46 kg 01/13/2025 Procedures Procedure Date Ordered Date Performed Result Body Sit e Catheter Insertion-Routine 01/13/2025 N/A Encounters Encounter Location Date Provider Diagnosis [facility] Tom Dan[facility], [place] [address] [place] [address] 01/13/2025 René Willis Urinary retention R3 3.9 ; Stress incontinence N39.3 ; 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 He developed recurrent bulbar urethral stricture and stopped performing daily self-dilation 2 years ago. He had jones attempted to be removed today and set up for CIC for keeping stricture patent. However, unable to do so. A 14fr indwelling jones was placed and will be left in. Patient is to return care in 3-4 weeks for possible jones exchange with Dr. Gunderson. He is to finish recently prescribed antibiotic course. Discussed case with Dr. Gunderson as well and recommended leaving jones in as well. For now, and through shared decision making we are in agreement with no further workup or intervention at this time with care plan, aside from what was mentioned. Patient has no other voiced concerns or questions. Patient satisfied with plan. 01/13/2025 Stress incontinence (ICD-10 - N39.3) Pt with complicated urologic history s/p prostatectomy, salvage XRT and ADT with undetectable PSA who has had severe CHRISTA since his prostatectomy. He developed recurrent bulbar urethral stricture and stopped performing daily self-dilation 2 years ago. He had jones attempted to be removed today and set up for CIC for keeping stricture patent. However, unable to do so. A 14fr indwelling jones was placed and will be left in. Patient is to return care in 3-4 weeks for possible jones exchange with Dr. Gunderson. He is to finish recently prescribed antibiotic course. Discussed case with Dr. Gunderson as well and recommended leaving jones in as well. For now, and through shared decision making we are in agreement with no further workup or intervention at this time with care plan, aside from what was mentioned. Patient has no other voiced concerns or questions. Patient satisfied with plan. 01/13/2025 Postprocedural male urethral stricture (ICD-10 - N99.114) Pt with complicated urologic history s/p prostatectomy, salvage XRT and ADT with undetectable PSA who has had severe CHRISTA since his prostatectomy. He developed recurrent bulbar urethral stricture and stopped performing daily self-dilation 2 years ago. He had jones attempted to be removed today and set up for CIC for keeping stricture patent. However, unable to do so. A 14fr indwelling jones was placed and will be left in. Patient is to return care in 3-4 weeks for possible jones exchange with Dr. Gunderson. He is to finish recently prescribed antibiotic course. Discussed case with Dr. Gunderson as well and recommended leaving jones in as well. For now, and through shared decision making we are in agreement with no further workup or intervention at this time with care plan, aside from what was mentioned. Patient has no other voiced concerns or questions. Patient satisfied with plan. 01/13/2025 History of prostate cancer (ICD-10 - Z85.46) Pt with complicated urologic history s/p prostatectomy, salvage XRT and ADT with undetectable PSA who has had severe CHRISTA since his prostatectomy. He developed recurrent bulbar urethral stricture and stopped performing daily self-dilation 2 years ago. He had jones attempted to be removed today and set up for CIC for keeping stricture patent. However, unable to do so. A 14fr indwelling jones was placed and will be left in. Patient is to return care in 3-4 weeks for possible jones exchange with Dr. Gunderson. He is to finish recently prescribed antibiotic course. Discussed case with Dr. Gunderson as well and recommended leaving jones in as well. For now, and through shared decision making we are in agreement with no further workup or intervention at this time with care plan, aside from what was mentioned. Patient has no other voiced concerns or questions. Patient satisfied with plan. 01/13/2025 History of prostatectomy (ICD-10 - Z90.79) Pt with complicated urologic history s/p prostatectomy, salvage XRT and ADT with undetectable PSA who has had severe CHRISTA since his prostatectomy. He developed recurrent bulbar urethral stricture and stopped performing daily self-dilation 2 years ago. He had jones attempted to be removed today and set up for CIC for keeping stricture patent. However, unable to do so. A 14fr indwelling jones was placed and will be left in. Patient is to return care in 3-4 weeks for possible jones exchange with Dr. Gunderson. He is to finish recently prescribed antibiotic course. Discussed case with Dr. Gunderson as well and recommended leaving jones in as well. For now, and through shared decision making we are in agreement with no further workup or intervention at this time with care plan, aside from what was mentioned. Patient has no other voiced concerns or questions. Patient satisfied with plan. 01/13/2025 History of radiation therapy (ICD-10 - Z92.3) Pt with complicated urologic history s/p prostatectomy, salvage XRT and ADT with undetectable PSA who has had severe CHRISTA since his prostatectomy. He developed recurrent bulbar urethral stricture and stopped performing daily self-dilation 2 years ago. He had jones attempted to be removed today and set up for CIC for keeping stricture patent. However, unable to do so. A 14fr indwelling jones was placed and will be left in. Patient is to return care in 3-4 weeks for possible jones exchange with Dr. Gunderson. He is to finish recently prescribed antibiotic course. Discussed case with Dr. Gunderson as well and recommended leaving jones in as well. For now, and through shared decision making we are in agreement with no further workup or intervention at this time with care plan, aside from what was mentioned. Patient has no other voiced concerns or questions. Patient satisfied with plan. Plan Of Treatment Pending Test Test Name Order Date Catheter Insertion-Routine 01/13/2025 Next Appt Details Follow Up: 3-4 weeks w/ poss ible jones exchange, Reason: Provider Name:SARITA Odell, 02/09/2025 11:00:00 AM, [address] [place], [address], Progress Notes * Scotty MARSH DDOB:1935 ( 89 yo M)Acc No.[id number]:01/13/2025 Patient: Scotty CAMERON Provider: Claudia Willis APRN :1935 A ge:89 Y S ex:Male Date:01/13/2025 Address:[address] [place], [place] [id number] Pcp:Terrance Leiva MD Subjective: * Chief Complaints: * 1 . HFU w/VT. * HPI: M igrated HPI: 89 yo male that is here today for recent hospital stay and discuss plan of care. He is s /p Cystoscopy with complex Jones catheter placement over wire, urethral dilation with sounds, balloon dilation of urethral stricture, and bladder irrigation on 01/05/25.? At time of discharge, appears that skilled care was offered but declined due to concerns that he would not do well cognitively in an unfamiliar environment with his advanced dementia. Here today for possible VT. Prior to this hospital stay, it was noted that he has a long and complex urologic history. He is a previous patient of Dr. Cabello with a dx of prostate cancer. He was treated with radical prostatectomy >25 years ago in [place] followed by salvage XRT, hormone manipulation, and urethral sling. They state his sling never worked and he has had severe stress incontinence and wore a Gifford clamp for years with good success. He also has a h/o bulbar urethral stricture that has required multiple dilations in the past and was supposed to be on daily self dilation CIC regimen, b ut has not been performing as he should the last two years. P SA on 12/13/24 was <0.04. He states since having back surgery 10+ years ago, he lost even the sensation/urge to void and he just goes into a diaper. He wears 2-3 diapers per day. Most information gained by his and daughter supplement history. I ncontinence: Urinary Incontinence A ssessment: A bsent with jones.? * ROS: P lease refer to patient intake ROS form. It has been reviewed and is accurate. * Medical History: P rostate cancer, Depression, Erectile dysfunction, Diabetes. * Surgical History: h eart stent x3 , prostatectomy , Trigger finger , back surgery , scar tissue removed from prostate . * Hospitalization/Major Diagno stic Procedure: e r visit - jones placed . * Family History: F ather: 88 yrs, Alzheimer's dementia. M other: . * Social History: T obacco Use: T obacco Control (Standard) T obacco use: N onsmoker. D rug/Alcohol: D rugs H ave you used drugs other than those for medical reasons in the past 12 months??No. C affeine I ntake: 2 -3 cups per day. D o you smoke marijuana?: Denies. Do you drink alcohol?: No. AUDIT-C (Standard) D id you have a drink containing alcohol in the past year? N o, P oints 0 , I nterpretation N egative. * Medications: T aking Atorvastatin Calcium 20 MG Tablet 1 tablet Orally Once a day , Taking Lisinopril 20 MG Tablet 1 tablet Orally Once a day , Taking amLODIPine Benzoate 1 MG/ML Suspension 5 mL Orally Once a day , Taking Memantine HCl 5 MG Tablet 1 tablet Orally Once a day , Taking Sertraline HCl 100 MG Tablet 1 tablet Orally Once a day , Taking Levothyroxine Sodium 100 MCG Tablet 1 tablet in the morning on an empty stomach Orally Once a day , Medication List reviewed and reconciled with the patient * Allergies: N .K.D.A. Objective: * Vitals: B P: 117/63 mm Hg, HR: 55 /min, Wt: 184 lbs, Wt-k.46 kg, Ht: 68 in, Ht-cm: 172.72 cm, BMI: 27.97 Index, Body Surface Area: 2. * Examination: G eneral Examination: Heart: N AD. Lungs: n on labored respirations. Abdomen: s oft, non tender, non distended. Back: n o CVA tenderness. Male genitourinary: f oley draining well with clear yellow urine to tubing and jones collection bag. No clots noted.. Assessment: * Assessment: 1. U rinary retention - R33.9 (Primary) 2 . S tress incontinence - N39.3? 3. P ostprocedural male urethral stricture - N99.114 4 . H istory of prostate cancer - Z85.46 5 . H istory of prostatectomy - Z90.79 & #160; 6 . H istory of radiation therapy - Z92.3 Pt with complicated urologic history s/p prostatectomy, salvage XRT and ADT with undetectable PSA who has had severe CHRISTA since his prostatectomy. He developed recurrent bulbar urethral stricture and stopped performing daily self-dilation 2 years ago. He had jones attempted to be removed today and set up for CIC for keeping stricture patent. However, unable to do so. A 14fr indwelling jones was placed and will be left in. Patient is to return care in 3-4 weeks for possible jones exchange with Dr. uGnderson. He is to finish recently prescribed antibiotic course. Discussed case with Dr. Gunderson as well and recommended leaving jones in as well. For now, and through shared decision making we are in agreement with no further workup or intervention at this time with care plan, aside from what was mentioned. Patient has no other voiced concerns or questions. Patient satisfied with plan. Plan: * Treatment: * Procedure Codes: 5 1702 Routine Catheter Change * Follow Up: 3 -4 weeks w/ possible jones exchange * Billing Information: * Visit Code: 44317 Office Visit, Est Pt., Level 3. Modifiers: 25 * Procedure Codes: 47391 INSERT TEMP BLADDER CATH. * Electronic signature of Timmy Willis APRN on 01/16/2025 at 09:11 PM CDT Sign off status: Pending * Provider: Claudia Willis APRN Date: 01/13/2025 Generated for Leonela kohler/Savage/Dieudonneitting on: 01/16/2025 09:11 PM CDT History and Physical Notes * HPI (History of Present Illness) Category Sub-Category Detail Notes Category Not es Incontinence Urinary Incontinence Assessment: : Absent with jones Migrated HPI 89 yo male that is here today for recent hospital stay and discuss plan of care. He is s/p Cystoscopy with complex Jones catheter placement over wire, urethral dilation with sounds, balloon dilation of urethral stricture, and bladder irrigation on 01/05/25. At time of discharge, appears that skilled care was offered but declined due to concerns that he would not do well cognitively in an unfamiliar environment with his advanced dementia. Here today for possible VT. Prior to this hospital stay, it was noted that he has a long and complex urologic history. He is a previous patient of Dr. Cabello with a dx of prostate cancer. He was treated with radical prostatectomy >25 years ago in [place] followed by salvage XRT, hormone manipulation, and urethral sling. They state his sling never worked and he has had severe stress incontinence and [...] ago, he lost even the sensation/urge to void and he just goes into a diaper. He wears 2-3 diapers per day. Most information gained by his and daughter supplement history. Examination Category Sub-Category Detail Notes Category Not es General Examination Heart: NAD Lungs: non labored respirat ions Abdomen: soft, non tender, no n distended Back: no CVA tenderness Male genitourinary: jones draining well with clear yellow urine to tubing and jones collection bag. No clots noted.
[2025-01-16 21:03] VITALS: BP 171/84; PULSE 101; RESP 18; TEMP 37.1; O2SAT 90; BMI 24.5
--- NOTE | 2025-01-16 21:06 | XRR_ITS ---
PROCEDURE INFORMATION: Exam: XR Chest Exam date and time: 01/16/2025 9:11 PM Age: 89 years old Clinical indication: Other: Weakness TECHNIQUE: Imaging protocol: Radiologic exam of the chest. Views: 1 view. COMPARISON: CR XR chest 1V portable [id number] 01/03/2025 11:32 AM FINDINGS: Lungs: Unremarkable. No consolidation. Pleural spaces: Unremarkable. No pleural effusion. No pneumothorax. Heart/Mediastinum: Unremarkable. No cardiomegaly. Bones/joints: Unremarkable. XR/XR chest 1V portable [id number] IMPRESSION: No acute findings.
--- OUTSIDE RECORDS SUMMARY | 2025-01-16 21:10 | XMS_ITS | Continuity of Care Document ---
Author Name [facility] Organization [facility] Care Team Providers Care Batter Depositor Name Role Phone [facility] Unavailable Unavailable Medications Combined list of outpatient medications from Department of Defense and Veterans Affairs facilities.Medications provided include 1) outpatient medications from the last 15 months, and 2) patient-reported medications. Medication Details Route Status Patient Instructions Prescription Expires Prescription Number Last Dispense Date Ordering Provider Order Date Order Qty Source LISINOPRIL (lisinopril ), 20 MG, TABLET, ORAL, EXELAN PHARMACE, 1000 ea. BOTTLE Cancele d [id number] : 2023 0 Pharmac y Data Transac tion Service Facilit y MEMANTINE HCL (memantine HCl), 5 MG, TABLET, ORAL, VIONA PHARMACEU, 60 ea. BOTTLE Active [id number] 2023 90 Pharmac y Data Transac tion Service Facilit y MEMANTINE HCL (memantine HCl), 5 MG, TABLET, ORAL, VIONA PHARMACEU, 60 ea. BOTTLE Active [id number] 4 2023 270 Pharmac y Data Transac tion Service Facilit y Social History Combined list of available smoking, tobacco, and other social history from Department of Defense and Veterans Affairs facilities. Social History Type Response Date Comment Sour e This section is an empty social history section. DoD
--- OUTSIDE RECORDS SUMMARY | 2025-01-16 21:11 | XMS_ITS ---
Author Organization Unknown Vital Signs BpStanding BpSitting BpSupine Date Temperature HeartRate Weight Hei ght Spo2 Respiration Bmi HeadCircumference FieldCount TimeRecorded NeckCircumferen ce WaistCircumference Pulse 120/70 12/12 00:00 :00 97.6 172,0.0 0 5,9 93 25.8 00:00 62 170/100 12/08 00:00 :00 97.1 190,16. 00 5,9 97 17 28.6 00:00 85 150/70 12/30 00:00 :00 98.1 174,16. 00 5,9 96 26.2 00:00 64
--- OUTSIDE RECORDS SUMMARY | 2025-01-16 21:11 | XMS_ITS | Patient Health Record ---
Author Organization [facility], [facility] Address [address] [place] [address] Care Team Providers Care Ruby On Rails Engineer Name Role Phone Terrance Leiva MD Primary Care Provider RENÉ Flowers Unavailable [phone] IVÁN STILL Unavailable [phone] SARITA GUNDERSON Unavailable [phone] René Willis Unavailable [phone] Allergies No Known Allergies Results Component Value Reference Range Notes Basic Metabolic Panel Reviewed date:01/06/2025 09:18:16 AM Interpretation: Performing Lab: Notes/Report: Use of this assay is not recommended for patients undergoing treatment with phenindione, due to the potential for falsely depressed results. Testing performed at: [address] [place] [address] CLIA ID [id number] Calculation performed from GFR calculator provided by the National [employer]. Glomerular Filtration rate(GRF) is the best overall index of kidney function. Normal GFR varies according to age,sex, body size, and declines with age. The National Kidney Foundation recommends using the CKD-EPI Creatinine Equation(2020) to estimate GFR. Z-vmevmg-o-benzoquinone imine (NAPQI) is a metabolite of acetaminophen, NAPQI concentrations of apparoximately 10 mg/L correlation to toxic levels of acetaminophen demonstrates a greater than or equil to 10% change in results. NAPQI concentrations greater than this may lead to falsely depressed results for patient samples. Testing performed at [facility], [address] [place], [place] [address], [place] [address]. CLIA ID#: [id number] Sodium 143 136-145 MMOL/L Potassium 3.8 3.5-5.1 MMOL/L Chloride 106 98-107 MMOL/L CO2 27.2 20.0-31.0 MMOL/L Glucose Serum 268 71-110 MG/DL BUN 20 7-21 MG/DL Creat .73 .57-1.17 MG/DL GFR 87.9 Anion Gap 14 5-15 BUN/Creat Ratio 27.4 12.0-20.0 % Calcium 8.5 8.7-10.4 MG/DL Osmo Serum,Calculated 308 280-300 MOSM/KG CBC w/ Auto Diff Reviewed date:01/06/2025 09:06:37 AM Interpretation: Performing Lab: Notes/Report: Testing performed at: [address], [place] [address] CLIA ID [id number] WBC 8.2 4.5-11.0 X10'3 RBC 4.04 4.50-5.90 X10'6 Hgb 12.8 13.5-17.5 G/DL Hct 38.2 41.0-53.0 % MCV 94.6 80.0-100.0 FL MCH 31.7 27.0-31.0 PG MCHC 33.5 31.0-37.0 G/DL Platelet 118 150-400 X10'3 RDW-SD 46.0 35.0-49.0 FL RDW-CV 13.1 12.2-15.6 % MPV 9.5 9.2-12.0 FL Neutro Auto% 74.6 40.0-70.0 % Lymph Auto% 12.5 22.0-44.0 % Mcclain Auto% 8.4 3.0-7.0 % Eos Auto% 3.9 2.0-4.0 % Baso Auto% 0.2 0.0-1.0 % Imm Gran% .4 .0-.4 % Neutro Abs 6.12 .80-7.70 Absolute Neutrophil Count 6120 Lymph Abs 1.03 .10-4.10 Mcclain Abs .69 .20-1.00 Eos Abs .32 .00-.40 Baso Abs .02 .00-.20 Imm Gran Abs .03 .00-.10 NRBC# .00 .00-.20 NRBC% .00 .00-.20 /100 intact WBC's Basic Metabolic Panel Reviewed date:01/07/2025 05:33:35 AM Interpretation: Performing Lab: Notes/Report: Testing performed at [facility], [address] [place] [address] [place] [address]. CLIA ID#: [id number] W-bacnfm-m-benzoquinone imine (NAPQI) is a metabolite of acetaminophen, NAPQI concentrations of apparoximately 10 mg/L correlation to toxic levels of acetaminophen demonstrates a greater than or equil to 10% change in results. NAPQI concentrations greater than this may lead to falsely depressed results for patient samples. Calculation performed from GFR calculator provided by the National Kid[employer] Foundation. Glomerular Filtration rate(GRF) is the best overall index of kidney function. Normal GFR varies according to age,sex, body size, and declines with age. The National Kidney Foundation recommends using the CKD-EPI Creatinine Equation(2020) to estimate GFR. Testing performed at: [address] [place] [address] CLIA ID [id number] Use of this assay is not recommended for patients undergoing treatment with phenindione, due to the potential for falsely depressed results. Sodium 144 136-145 MMOL/L Potassium 3.3 3.5-5.1 MMOL/L Chloride 104 98-107 MMOL/L CO2 30.9 20.0-31.0 MMOL/L Glucose Serum 82 71-110 MG/DL BUN 20 7-21 MG/DL Creat .80 .57-1.17 MG/DL GFR 85.3 Anion Gap 12 5-15 BUN/Creat Ratio 25.0 12.0-20.0 % Calcium 8.8 8.7-10.4 MG/DL Osmo Serum,Calculated 300 280-300 MOSM/KG CBC w/ Auto Diff Reviewed date:01/07/2025 05:33:20 AM Interpretation: Performing Lab: Notes/Report: Testing performed at: [address] [place] [address] CLIA ID [id number] WBC 7.5 4.5-11.0 X10'3 RBC 4.05 4.50-5.90 X10'6 Hgb 12.9 13.5-17.5 G/DL Hct 37.6 41.0-53.0 % MCV 92.8 80.0-100.0 FL MCH 31.9 27.0-31.0 PG MCHC 34.3 31.0-37.0 G/DL Platelet 129 150-400 X10'3 RDW-SD 44.3 35.0-49.0 FL RDW-CV 12.9 12.2-15.6 % MPV 9.7 9.2-12.0 FL Neutro Auto% 65.4 40.0-70.0 % Lymph Auto% 20.3 22.0-44.0 % Mcclain Auto% 9.0 3.0-7.0 % Eos Auto% 4.6 2.0-4.0 % Baso Auto% 0.3 0.0-1.0 % Imm Gran% .4 .0-.4 % Neutro Abs 4.89 .80-7.70 Absolute Neutrophil Count 4890 Lymph Abs 1.52 .10-4.10 Mcclain Abs .67 .20-1.00 Eos Abs .34 .00-.40 Baso Abs .02 .00-.20 Imm Gran Abs .03 .00-.10 NRBC# .00 .00-.20 NRBC% .00 .00-.20 /100 intact WBC's Immature PLT Fraction Reviewed date:01/07/2025 05:33:27 AM Interpretation: Performing Lab: Notes/Report: Immature PLT Fraction 2.2 1.6-7.1 % Platelet 129 150-400 X10'3 Testing perfor med at: [place] [address] CLIA ID [id number] Reason For Referral No Information Medications Medication SIG (Take, Route, Frequency, Duration) Notes Start Date End Date Status Levothyroxine Sodium 100 MCG 1 tablet in the morning on an empty stomach Orally Once a day Active Sertraline HCl 100 MG 1 tablet Orally On ce a day Active Memantine HCl 5 MG 1 tablet Orally Once a day Active Atorvastatin Calcium 20 MG [...] ast year? No Points 0 Interpretation Negative Problems Problem Type SNOMED Code ICD Code Onset Dates Problem Status W/U Status Risk Notes Problem History of malignant neoplasm of prostate (588648028) History of prostate cancer (Z85.46) Active confirmed Problem History of radiation therapy (516260813) History of radiation therapy (Z92.3) Active confirmed Problem SI - Stress incontinence (81677475) Stress incontinence (N39.3) Active confirmed Vital Signs Heart Rate 55 /min 01/13/2025 Height-cm 172.72 cm 01/13/2025 Blood pressure diastolic 63 mm Hg 01/13/2025 Weight-kg 83.46 kg 01/13/2025 Height 68 in 01/13/2025 Blood pressure systolic 117 mm Hg 01/13/2025 Weight 184 lbs 01/13/2025 BMI 27.97 kg/m2 01/13/2025 Procedures Procedure Date Ordered Date Performed Result Body Sit e Bladder Scan 12/21/2024 N/A Catheter Insertion-Routine 01/13/2025 N/A Encounters Encounter Location Date Provider Diagnosis [facility], [facility] [address] [place] [address] 01/13/2025 René Willis Urinary retention R3 3.9 ; Stress incontinence N39.3 ; 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 ; History of prostate cancer Z85.46 ; History of prostatectomy Z90.79 and History of radiation therapy Z92.3 [facility], [facility] [address] [place] [address] 12/21/2024 IVÁN STILL Urinary retention R3 3.9 ; Stress incontinence N39.3 ; 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 PSA undetectable last week. 01/13/2025 Stress incontinence (ICD-10 - N39.3) Pt [...] or questions. Patient satisfied with plan. 01/13/2025 Urinary retention (ICD-10 - R33.9) Pt [...] concerns or questions. Patient satisfied with plan. 12/21/2024 Postprocedural male urethral stricture (ICD-10 - [...] unsuccessfully. He is interested in getting another rodman clamp because that managed his daily CHRISTA well. Prior to getting clamp, recommend scheduling for cystoscopy with possible urethral dilation to prevent urinary retention, then we start back on clamping. He denies any hematuria, bladder pain. PSA undetectable last week. 01/13/2025 History of prostate cancer (ICD-10 - [...] concerns or questions. Patient satisfied with plan. 12/21/2024 History of prostate cancer (ICD-10 - [...] hematuria, bladder pain. PSA undetectable last week. 01/13/2025 History of prostatectomy (ICD-10 - Z90.79) [...] concerns or questions. Patient satisfied with plan. 12/21/2024 History of radiation therapy (ICD-10 - [...] Date Urinalysis, Routine 12/21/2024 Bladder Scan 12/21/2024 Catheter Insertion-Routine 01/13/2025 Next Appt Details Provider Name:SARITA Diogenes BLOOMKatharine Cass, 02/09/2025 11:00:00 AM, [address] [place], [address], Insurance Providers Payer Name Payer Address Payer Phone Subscriber Number Group Number Insured Name Patient Relationship to Insured Coverage Start Date Coverage End Date [place] [address] [facility] [place] HACKETT [id number] Scotty Marsh Self - patient is the insured for Life Secondary to Medicare [address] [place], [place] [id number] [phone] [id number] Scotty Marsh Self - patient is the insured Medical (General) History Medical History History ICD Code Prostate cancer depression Erectile dysfunction Diabetes Surgical History Surgery Date(Month/Year) heart stent x3 prostatectomy Trigger finger back surgery scar tissue removed from prostate Hospitalization History Reason Date(Month/Year) er visit - jones placed
--- OUTSIDE RECORDS SUMMARY | 2025-01-16 21:11 | XMS_ITS | Clinical Summary ---
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
--- OUTSIDE RECORDS SUMMARY | 2025-01-16 21:11 | XMS_ITS | Encounter Summary ---
Author Organization [facility] Address [address] [place] [address] Care Team Providers Care Needle Grinder Name Role Phone Unavailable Primary Care Provider Unavailabl e Encounter Details Date Type Department Care Team (Late st Contact Info) Description 05/22/2004 Outpatient Historical [facility] [address] [place] [phone] Mick Salazar S, OD [address] [place] [phone] DIABETES MELLITUS TYPE II-UNCOMPL ([facility]) (Primary Dx); SENILE CATARACT NOS Social History Tobacco Use Types Packs/Day Years Used Date Smoking Tobacco: Never Assessed Sex and Gender Information Value Date Recorded Sex Assigned at Not on file 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
--- OUTSIDE RECORDS SUMMARY | 2025-01-16 21:12 | XMS_ITS | Data Portability ---
Author Organization [facility] Ramona Will [facility] Address [address] [address] Assessment No assessment recorded. Plan of Treatment Reminders Order Date Submit Date Provider Last Modified By Organization Details Last Modified Time Details Appointments HOSPITA L f/u 15 2024 12:00P M Terrance Leiva MD Not available Not available Not available Lab hemoglo bin A1C/hem oglobin total, QN, blood 2024 025 [facility], [address], [address], [address], 12/12/2024 15:29:11 CBC [address] Lab, [address], [address], [address], 12/19/2024 08:27:01 CBC 2024 025 [facility], [address], [address], [address], 12/12/2024 15:25:52 CMP, serum or plasma 2024 025 [facility], [address], [place] [address], [address], 12/12/2024 16:07:42 TSH, serum or plasma [address] Lab, [address] [facility] [address], [place], [address], 12/19/2024 08:27:01 PSA, serum or plasma 2024 025 [facility], [address] [facility], [place], [address], 12/13/2024 05:47:[address] referra l 2024 025 [email or web address] [facility], [address], [place], [address], 12/14/2024 15:09:51 Procedures colonos copy screeni ng (PROC) 2024 025 [email or web address] Not available 01/11/2025 12:40:41 Surgeries None recorde d. Imaging None recorde d. Medication Orders Rexulti 0.5 mg tablet 2024 025 [facility] [place], [facility] [place], [address], 01/10/2025 17:38:11 Patient TargetsNo targets recorded. Patient InstructionsNo instructions recorded. Reason for Referral Urologist Referral for Reten tion of urine Referring Physician: Terrance Leiva, Family Medicine, Encounter Date: 12/12/2024 Results Created Date Observation Date Name Description Value Unit Range Abnormal Flag Note LastModifiedBy Organization Detail LastModifiedTime 12/13/1912/12/2024 CBC WBC 7.2 x10 4.5-10 .5 Not Available [facility] [address], [place], [address], 12/12/2024 15:25:52 12/13/19 25 12/12/2024 CBC RBC 5.03 x10 4.30-5 .90 Not Available [facility] [address], [place], [address], 12/12/2024 15:25:52 12/13/19 25 12/12/2024 CBC HGB 16.0 g/dL 13.5-1 8.0 Not Available [facility] [address], [place], [address], 12/12/2024 15:25:52 12/13/19 25 12/12/2024 CBC HCT 48.9 % 35.0-6 0.0 Not Available [facility] [address], [place], [address], 12/12/2024 15:25:52 12/13/19 25 12/12/2024 CBC MCV 97.3 fL 80.0-9 9.9 Not Available [facility] [address], [place], [address], 12/12/2024 15:25:52 12/13/19 25 12/12/2024 CBC MCH 31.8 pg 27.0-3 2.0 Not Available [facility] [address] [facility] [address], [place], [address], 12/12/2024 15:25:52 12/13/19 25 12/12/2024 CBC MCHC 32.7 g/dL 32.0-3 6.0 Not Available [facility] [address] [facility] [address], [place], [address], 12/12/2024 15:25:52 12/13/19 25 12/12/2024 CBC RDW 13.4 % 11.5-1 4.5 Not Available [facility] [address] [facility] [address], [place], [address], 12/12/2024 15:25:52 12/13/19 25 12/12/2024 CBC plt 117.8 x10 150.0- 451.0 low Not Available [facility] [address] [facility] [address], [place], [address], 12/12/2024 15:25:52 12/13/19 25 12/12/2024 CBC lymphocytes % 22.6 % 20.0-5 0.0 Not Available [facility] [address] [place] [address], [place], [address], 12/12/2024 15:25:52 12/13/19 25 12/12/2024 CBC granulcytes % 63.9 % 30.0-7 0.0 Not Available [facility] [address] [facility] [address], [place], [address], 12/12/2024 15:25:52 12/13/19 25 12/12/2024 CBC monocytes % 10.3 % 2.0-16 .0 Not Available [facility] [address] [address], [place], [address], 12/12/2024 15:25:52 12/13/19 25 12/12/2024 CBC granulcytes# 4.6 x10 Not Filomena ilable [facility] [address] [address], [place], [address], 12/12/2024 15:25:52 12/13/19 25 12/12/2024 CBC lymphocytes # 1.6 x10 Not Available [facility] [address] [address], [place], [address], 12/12/2024 15:25:52 12/13/19 25 12/12/2024 CBC monocytes # 0.7 x10 Not Avai lable [facility] [address] [address], [place], [address], 12/12/2024 15:25:52 12/13/19 25 12/12/2024 HBA1C hemaglobin A1C 6.6 4.2-6. 5 high Not Available [facility] [address] [address], [place], [address], 12/12/2024 15:29:10 12/13/19 25 12/12/2024 CMP (MALE ) glucose 78.0 mg/dL 60.0-9 9.[address] [facility] [address] [facility] [address], [place], [address], 12/12/2024 16:07:42 12/13/19 25 12/12/2024 CMP (MALE ) BUN (blood urea nitrogen) 22.0 mg/dL 10.0-2 6.[address] [facility] [address] [facility] [address], [place], [address], 12/12/2024 16:07:42 12/13/19 25 12/12/2024 CMP (MALE ) creatinine (serum) 0.8 mg/dL 0.4-1. [address] [facility] [address] [facility] [address], [place], [address], 12/12/2024 16:07:42 12/13/19 25 12/12/2024 CMP (MALE ) BUN/creatini ne ratio 27.50 ratio Not Available [address] [facility] [address], [place], [address], 12/12/2024 16:07:42 12/13/19 25 12/12/2024 CMP (MALE ) eGFR calculated 97.2 Not Available [facility] [address] [facility] [address], [place], [address], 12/12/2024 16:07:42 12/13/19 25 12/12/2024 CMP (MALE ) total protein 7.4 g/dL 6.0-8. [address] [facility] [address] [facility] [address], [place], [address], 12/12/2024 16:07:42 12/13/19 25 12/12/2024 CMP (MALE ) total bilirubin 0.7 mg/dL 0.2-1. 3 Not Available [facility] [address] [facility] [address], [place], [address], 12/12/2024 16:07:42 12/13/19 25 12/12/2024 CMP (MALE ) albumin 4.4 g/dL 3.5-5. 5 Not Available [facility] [address] [facility] [address], [place], [address], 12/12/2024 16:07:42 12/13/19 25 12/12/2024 CMP (MALE ) globulin 3.0 calc Not Available [facility] [address] [facility] [address], [place], [address], 12/12/2024 16:07:42 12/13/19 25 12/12/2024 CMP (MALE ) AST (SGOT) 28.0 U/L 0.0-46 .0 Not Available [facility] [address] [facility] [address], [place], [address], 12/12/2024 16:07:42 12/13/19 25 12/12/2024 CMP (MALE ) altv (SGPT) 26.0 U/L 13.0-6 9.0 normal Not Available [facility] [address] [facility] [address], [place], [address], 12/12/2024 16:07:42 12/13/19 25 12/12/2024 CMP (MALE ) A/G ratio 1.5 ratio Not Available [facility] [address] [facility] [address], [place], [address], 12/12/2024 16:07:42 12/13/19 25 12/12/2024 CMP (MALE ) ALP phos 81.0 U/L 30.0-1 40.0 normal Not Available [facility] [address] [address], [place], [address], 12/12/2024 16:07:42 12/13/19 25 12/12/2024 CMP (MALE ) calcium 9.8 mg/dL 8.4-10 .5 Not Available [facility] [address] [place] [facility], [place], [address], 12/12/2024 16:07:42 12/13/19 25 12/12/2024 CMP (MALE ) sodium 142.0 mmol/ L 136.0- 145.0 Not Available [facility] [address] [facility] [address], [place], [address], 12/12/2024 16:07:42 12/13/19 25 12/12/2024 CMP (MALE ) potassium 4.5 mmol/ L 3.5-5. 1 Not Available [facility] [address] [facility] [address], [place], [address], 12/12/2024 16:07:42 12/13/19 25 12/12/2024 CMP (MALE ) chloride 104.0 mmol/ L 98.0-1 10.0 normal Not Available [facility] [address] [place] [facility], [place], [address], 12/12/2024 16:07:42 12/13/19 25 12/12/2024 CMP (MALE ) C02 31.0 mmol/ L 22.0-3 1.0 Not Available [facility] [address] [facility] [address], [place], [address], 12/12/2024 16:07:42 12/13/19 25 12/12/2024 CMP (MALE ) anion gap 7.0 calc Not Available [facility] [address] [facility] [address], [place], [address], 12/12/2024 16:07:42 12/13/19 25 12/12/2024 CMP (MALE ) osmolality 295.2 calc Not Available [facility] [address] [facility] [address] [address], [place], [address], 12/12/2024 16:07:42 12/13/19 25 12/12/2024 TSH TSH 1.26 uIU/m L 0.49-3 .[address] [facility] [address], [place], [address], 12/12/2024 16:15:25 12/13/19 25 12/13/2024 PSA, TOTAL [...] This test was perfo rmed using the [employer] chemi lumin escen t metho d. Value s obtai jose from diffe rent assay metho ds canno t be used inter huntley eably . PSA level s, regar dless of value , shoul d not be inter prete d as absol wiyot evide nce of the prese nce or absen ce of disea se. Not Available [facility] [address] [place], [address], 12/13/2024 05:47:13 Result Notes None recorded. Problems Name Problem SNOMED Code Status Onset Date Resolution Date Notes Provider Name and Address Organization Details Recorded Time History of malignant neoplasm of prostate 181217059 Active 2024 Eugenie mancera [facility] 14:08:54 Alzheimer's disease 40213558 Active 2024 Eugenie mancera [facility] 14:09:17 Type 2 diabetes mellitus 90512531 Active 2024 [facility] 14:10:21 Hypercholes terolemia 32962854 Active 2024 [facility] 14:10:32 Bilateral degeneratio n of macula 0303554337695 9100 Active 2024 [facility] 14:11:39 Essential hypertensio n 09407038 Active 2024 [facility] 14:12:03 Hypothyroid ism 98807611 Active 2024 [facility] 14:12:55 History of non-ST segment elevation myocardial infarction 179812202 Active 2024 FERMÍN DIAZ [facility] 09:26:10 Problem Notes None recorded. Procedures Surgical History Date Name Laterality Status Provider Name and Address Organization Details Recorded Time 06/22/[address] [facility] 12/12/2024 14:24:[address] [facility] 12/12/2024 14:24:[address] [facility] 12/12/2024 14:24:53 excision of malignant neoplasm , [facility].L.[facility]. 12/12/2024 14:25:26 Imaging Results None recorded. Procedure Notes None recorded. Medical Equipment None Reported. Allergies Allergen ID Allergen Name Allergen Category Reaction Reaction Severity Criticality Documentation Date Start Date Code Code System Note Provider Name and Address Organization Details Recorded Time 58965 Claritin- D medicatio n Not available Not available Not available 12/08/2024 53024 UNK MARIA DEL CARMEN ASHLEE mancera [facility], Abrahan 16:44:59 Medications Name Sig Start Date Stop [...] Not Available Not Available Not Avai lable ciprofloxaci n 500 mg tablet TAKE 1 TABLET BY MOUTH EVERY TWELVE HOURS for 10 days active Not Available Not Available No t Available sulfamethoxa zole 800 mg-trimethop rim 160 mg [...] completed Not Available Not Available Not Available pantoprazole 40 mg tablet,delay ed release TAKE 1 TABLET BY MOUTH EVERY DAY active Not Available Not Available No t Available cefdinir 300 mg capsule take 1 capsule BY MOUTH EVERY TWELVE HOURS FOR SEVEN DAYS active Not Available Not Available No t Available memantine 5 mg tablet Take 2 tablets twice a day by oral route for 90 days. 2024 active Not Available Not Available Not Avai lable Novolog FlexPen U-100 Insulin 20 units before every meal 12/12 completed Not Available Not Available Not Available Lantus Solostar U-100 Insulin 60 units daily active Not Available Not Available No t Available Humalog KwikPen (U-100) Insulin 100 unit/mL subcutaneous 20 units with every meal active Not Available Not Available No t Available Rexulti 0.5 mg tablet TAKE 1 TABLET BY MOUTH EVERY DAY FOR SEVEN DAYS THEN TWO tabs daily FOR 14 DAYS active Not Available Not Available No t Available Vitals Date Recorded Body weight Body mass index (BMI) Body height Body temperature Heart rate Oxygen saturation Oxygen saturation in Arterial blood by Pulse oximetry Respiratory rate Systolic And Diastolic Provider Name and Address Organization Details Last Updated DateTime 5 41590.1 4 g 28.6 kg/m2 173.99 cm 97.1 [degF] 85 /min 97 % 97 % 17 /min 170/100 mm[Hg] MARIA DEL CARMEN ROSADO [facility] 5 16:44:09 Date Recorded Body height Body mass index (BMI) Body weight Heart rate Oxygen saturation Oxygen saturation in Arterial blood by Pulse oximetry Body temperature Systolic And Diastolic Provider Name and Address Organization Details Last Updated DateTime 5 173.99 cm 25.8 kg/m2 40775.8 9 g 62 /min 93 % 93 % 97.6 [degF] 120/70 mm[Hg] Eugenie Judd [facility] 5 14:20:22 Date Recorded Body height Body mass index (BMI) Body weight Body temperature Oxygen saturation Oxygen saturation in Arterial blood by Pulse oximetry Heart rate Systolic And Diastolic Provider Name and Address Organization Details Last Updated DateTime 5 173.99 cm 26.2 kg/m2 12431.6 6 g 98.1 [degF] 96 % 96 % 64 /min 150/70 mm[Hg] CATHY GRACE [facility] 5 11:58:11 Social History Question Answer Notes LastModified by [employer] Details LastModified Time Tobacco Smoking Status Never Smoker [facility] DEL [facility]MEN [facility] 12/08/2024 16:48:19 What Was The Date Of Your Most Recent Tobacco Screening? 12/08/2024 [email or web address] Information not available 12/08/2024 Sex: Unknown Functional Status Question Answer Note LastModified by [employer] Details LastModified Time Do you use any [...] mcg/0.3 mL dose 1 completed Not Available [facility] 12/30/2024 11:54:16 COVID-19, mRNA, LNP-S, PF, 30 mcg/0.3 mL dose 1 completed Not Available [facility] 12/30/2024 11:54:16 COVID-19, mRNA, LNP-S, PF, 30 mcg/0.3 mL dose 1 completed Not Available [facility] 12/30/2024 11:54:16 Influenza, split virus, trivalent, preservative 2 completed Not Available [facility] 12/30/2024 11:54:16 Influenza, split virus, trivalent, preservative 3 completed Not Available [facility] 12/30/2024 11:54:16 Past Encounters Encounter ID Performer Location Encounter Start Date Encounter Closed Date Diagnosis/Indication Diagnosis SNOMED-CT Code Diagnosis ICD10 Code Diagnosis Note [id number] GLADIS PURI [facility] ([facility]) [address] [place] [id number] 12/08/2024 16:32:25 12/08/2024 17:39:05 Acute retention of urine 801048320 R33.8 Patient sent to ER for further evaluation and treatment. Report called to ER staff by Maura JAMIL. [id number] Terrance Leiva MD [facility] ([facility]) [address] [place] [phone] 12/12/2024 13:16:28 12/13/2024 10:01:13 Retention of urine 754410510 R33.9 Alzheimer's disease 2692 9004 G30.9 F02.80 Hypothyroidism 65531001 E03.9 Hypercholesterolemia 136 86008 E78.00 History of malignant neoplasm of prostate 158621388 Z85.46 without cathing he is not able to he is going by leaking. renal function as normal Essential hypertension 55474189 I10 Bilateral degeneration of macula 1259886141 1467229 H35.30 Daniel hematuria 41763231 5 R31.0 Type 2 godwin ivyes mellitus 95237722 E11.9 unable to get a urine right now due to incontinen cemanaged by endocrinol ogy [id number] Terrance Leiva MD [facility] ([facility]) [address] [place] [address] 12/30/2024 11:53:52 12/30/2024 13:37:24 First encounter by subject [id number] Z76.89 Screening for malignant neoplasm of colon 615609676 Z12.11 Dementia 98052889 F03.91 8 i advised locking car keys [...] ID Burgos Member ID Guarantor Name 12/27/2024 [place] - [place] A - [facility] (MEDICARE) Scotty Marsh [id number] Scotty Marsh 12/27/2024 1 [place] Scotty Marsh [id number] Scotty Marsh 01/14/2025 2 FOR LIFE ( - MEDICARE SUPPLEMENT) Scotty Marsh [id number] Scotty Marsh
--- OUTSIDE RECORDS SUMMARY | 2025-01-16 21:12 | XMS_ITS | Clinical Summary ---
Author Organization [facility] Address [address] 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
--- OUTSIDE RECORDS SUMMARY | 2025-01-16 21:12 | XMS_ITS | Encounter Summary ---
Author Organization [facility] Address [address] [place] [address] Care Team Providers Care Hobbing Machine Operator Name Role Phone Unavailable Primary Care Provider Unavailabl e Encounter Details Date Type Department Care Team (Late st Contact Info) Description 03/04/2007 Outpatient Historical [facility] Dermatology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
--- NOTE | 2025-01-16 21:17 | W.ED.PSYCHS ---
HPI - Psych General: Chief Complaint: Psychiatric Symptoms Stated Complaint: pulled out cath Time Seen by Provider: 01/16/25 21:05 History of Present Illness: 89-year-old man who presents to the emergency room with some agitation and aggression towards his . He recently had urinary retention and had to have urethral dilatation and Alvarado catheter placement. had stated that he was agitated and was not taking his medicines. He does appear to have a little blood in his Alvarado catheter. No focal motor deficits. Afebrile. No vomiting. Related Data Home Medications ?Medication ?Instructions ?Recorded ?Confirmed atorvastatin 20 mg tablet (Lipitor) 20 mg PO BEDTIME 07/12/19 01/03/25 insulin lispro 100 unit/mL See Rx Instructions .Route 06/06/20 01/03/25 subcutaneous pen (Humalog KwikPen .COMPLEX see pharmacy comments (U-100) Insulin) lisinopril 20 mg tablet 20 mg PO DAILY PRN Blood Pressure 06/06/20 01/03/25 sertraline 50 mg tablet (Zoloft) 50 mg PO DAILY 08/20/20 01/03/25 insulin glargine 100 unit/mL (3 60 unit SUBCUT QAM 11/15/20 01/03/25 mL) subcutaneous pen (Lantus Solostar U-100 Insulin) levothyroxine 100 mcg tablet 100 mcg PO DAILY 11/15/20 01/03/25 (Synthroid) amlodipine 5 mg tablet 5 mg PO DAILY 01/03/25 01/03/25 ciprofloxacin HCl 500 mg tablet 500 mg PO Q12H 01/03/25 01/03/25 vit C 250 mg-vit E 90 mg-zinc 40 1 tab PO BID 01/03/25 01/03/25 mg-copper 1 dy-cobelf-kghaiv capsule (PreserVision AREDS-2) Previous Rx's ?Medication ?Instructions ?Recorded cefdinir 300 mg capsule 300 mg PO BID 7 days #14 caps 01/17/25 Allergies Allergy/AdvReac Type Severity Reaction Status Date / Time loratadine (From Claritin) Allergy NA Verified 11/01/24 15:19 Review of Systems Narrative: Constitutional symptoms: Negative except as documented in HPI. Skin symptoms: Negative except as documented in HPI. Eye symptoms: Negative except as documented in HPI. ENMT symptoms: Negative except as documented in HPI. Respiratory symptoms: Negative except as documented in HPI. Cardiovascular symptoms: Negative except as documented in HPI. Gastrointestinal symptoms: Negative except as documented in HPI. Genitourinary symptoms: Negative except as documented in HPI. Musculoskeletal symptoms: Negative except as documented in HPI. Neurologic symptoms: Negative except as documented in HPI. Psychiatric symptoms: Negative except as documented in HPI. Endocrine symptoms: Negative except as documented in HPI. PFSH ED PFSH: Medical History (Updated 01/17/25 @ 02:17 by Rossy Elizabeth MD) History of prostate cancer Vertigo Sleep apnea Urinary anastomotic stricture Surgical History S/P trigger finger release Date of procedure: March 15, 2024 Procedure done: Release left ring trigger finger. Surgeon: Apurva Carpio MD History of back surgery S/P tonsillectomy S/P vasectomy History of prostatectomy Family History Family/Other CAD (coronary artery disease) Father , in his 70's Alzheimer disease Mother , in her 90's CAD (coronary artery disease) Social History Smoking and tobacco/nicotine status: never used tobacco/nicotine Alcohol intake: never Substance/Drug Use: never Marital status: Current occupational status: retired Physical Exam Narrative: EXAM NARRATIVE: General: Alert, no acute distress. Skin: Warm, dry. Head: Normocephalic, atraumatic. Neck: Supple, trachea midline. Eye: Extraocular movements are intact. Ears, nose, mouth and throat: mucosa moist. Cardiovascular: Regular, Normal peripheral perfusion. Respiratory: Lungs are clear to auscultation, respirations are non-labored, breath sounds are equal, Symmetrical chest wall expansion. Gastrointestinal: Soft, Nontender, Non distended Musculoskeletal: Normal ROM, no deformity. Neurological: Alert and oriented, No focal neurological deficit observed. Psychiatric: Cooperative, appropriate mood & affect. Course Vital Signs: Vital signs: Vital Signs Temperature 98.7 F 01/16/25 21:03 Pulse Rate 61 01/17/25 02:37 Respiratory Rate 17 01/17/25 02:37 Blood Pressure 158/62 01/17/25 02:37 Pulse Oximetry 96 01/17/25 02:37 Oxygen Delivery Me thod Room Air 01/17/25 02:37 MDM - Psych Medical Decision Making Medical decision making: Differential diagnosis including but not limited to and based on the above HPI, review of systems and physical exam: In this patient with altered mental status: Stroke. Hypoglycemia. Metabolic encephalopathy. Infections such as pneumonia, urinary tract infection, Covid-19, Influenza. Electrolyte abnormalities such as hypernatremia. Renal failure / uremia. Hepatic encephalopathy. Hypoxemia. Hypercapnic respiratory failure. Psychosis. Drug or alcohol intoxication. Medication overdose. Orders placed to evaluate differential diagnosis based on the above differential, HPI and physical exam Chest x-ray: No acute process. No infiltrate. No pneumothorax. This was reviewed and interpreted by myself the emergency room physician. I also reviewed the radiology report. Lab Review: Laboratory results were reviewed and interpreted by myself the emergency room physician. No leukocytosis. No anemia. No renal failure. His glucose is a bit elevated at 267. Urinalysis has a lot of red cells some bacteria and some whites so we will treat as a urinary tract infection. I reviewed the patient's medical record. Reexamination: Patient remained stable. No increased work of breathing. No altered mental status. No focal motor deficits. I discussed findings with and she is okay with taking him home. Had some difficulty with his Alvarado it has been flushed and now seems to be draining. He seem to be a bit dehydrated as there is no urine in his bladder for a bit so he was given some fluids. Assessment and plan: Urinary tract infection Dehydration ? Normal saline bolus and IV Rocephin - Discharged home - Discussed plan with patient. Answered any questions. - Evaluation and treatment of this problem were appropriate in the emergency setting. Lab Data 01/16/25 21:38 01/16/25 21:38 Radiology Impressions Chest X-Ray 01/16/25 21:06 IMPRESSION: No acute findings. Laboratory Results WBC 6.60 10^3/uL (3.29-11.43) 01/16/25 21:38 RBC 4.13 10^6/uL (3.85-5.65) 01/16/25 21:38 Hgb 13.10 g/dL (11.27-16.99) 01/16/25 21:38 Hct 38.3 % (37-53) 01/16/25 21:38 MCV 92.7 fl (82-101) 01/16/25 21:38 MCH 31.7 pg (27-33) 01/16/25 21:38 MCHC 34.2 g/dL (30-55) 01/16/25 21:38 RDW 12.8 % (12.1-15.1) 01/16/25 21:38 Plt Count 161 10^3/cmm (157-399) 01/16/25 21:38 MPV 9.4 fL (7.4-10.4) 01/16/25 21:38 Neut % (Auto) 72.9 % 01/16/25 21:38 Lymph % (Auto) 16.7 % 01/16/25 21:38 Ida % (Auto) 7.6 % 01/16/25 21:38 Eos % (Auto) 2.0 % 01/16/25 21:38 Baso % (Auto) 0.3 % 01/16/25 21:38 Neut # (Auto) 4.82 10^3/uL (1.8-7.7) 01/16/25 21:38 Lymph # (Auto) 1.1 10^3/uL (0.8-4.8) 01/16/25 21:38 Ida # (Auto) 0.5 10^3/uL (0.2-0.9) 01/16/25 21:38 Eos # (Auto) 0.1 10^3/uL (0.0-0.8) 01/16/25 21:38 Baso # (Auto) 0.0 10^3/uL (0.0-0.1) 01/16/25 21:38 Nucleated RBC % (auto) 0 % 01/16/25 21:38 Nucleated RBCs # 0.0 /100WBC 01/16/25 21:38 Sodium 139 mmol/L (136-145) 01/16/25 21:38 Potassium 4.1 mmol/L (3.5-5.1) 01/16/25 21:38 Chloride 100 mmol/L (98-107) 01/16/25 21:38 Carbon Dioxide 26 mmol/L (22-29) 01/16/25 21:38 Anion Gap 17.1 (5-19) 01/16/25 21:38 BUN 21 mg/dL (8-23) 01/16/25 21:38 Creatinine 0.9 mg/dL (0.7-1.2) 01/16/25 21:38 GFR Calculation Not Reportable 01/16/25 21:38 Glucose 267 mg/dL (65-115) H 01/16/25 21:38 Calculated Osmolality 300 mOsm/kg (285-295) H 01/16/25 21:38 Lactic Acid 1.7 mmol/L (0.5-2.2) 01/16/25 21:38 Calcium 9.2 mg/dL (8.5-10.5) 01/16/25 21:38 Total Bilirubin 0.3 mg/dL (0.15-1.2) 01/16/25 21:38 AST 14 U/L (0-40) 01/16/25 21:38 ALT 15 U/L (0-41) 01/16/25 21:38 Alkaline Phosphatase 84 U/L (40-130) 01/16/25 21:38 Total Protein 6.8 g/dL (6.6-8.7) 01/16/25 21:38 Albumin 4.0 g/dL (3.5-5.2) 01/16/25 21:38 Globulin 2.8 g/dL (1.3-4.6) 01/16/25 21:38 Urine Color Red (Yellow) A 01/17/25 00:58 Urine Appearance Cloudy (CLEAR) A 01/17/25 00:58 Urine pH Not Reportable 01/17/25 00:58 Ur Specific [place] Not Reportable 01/17/25 00:58 Urine Protein Not Reportable 01/17/25 00:58 Urine Glucose (UA) Not Reportable 01/17/25 00:58 Urine Ketones Not Reportable 01/17/25 00:58 Urine Blood Not Reportable 01/17/25 00:58 Urine Nitrate Not Reportable 01/17/25 00:58 Urine Bilirubin Not Reportable 01/17/25 00:58 Urine Urobilinogen Not Reportable 01/17/25 00:58 Ur Leukocyte Esterase Not Reportable 01/17/25 00:58 Urine RBC Too numerous to cnt /hpf (0-2) H 01/17/25 00:58 Urine WBC 10-15 /hpf (0-5) H 01/17/25 00:58 Ur Squamous Epith Cells None /hpf (0-5) 01/17/25 00:58 Amorphous Sediment Not Reportable 01/17/25 00:58 Urine Bacteria Trace /hpf (NONE) 01/17/25 00:58 Urine Mucus 1+ /hpf 01/17/25 00:58 Urine Yeast 1+ /hpf H 01/17/25 00:58 All radiology interpretation(s) finalized by discharge Discharge Plan Discharge Patient Disposition: Home Clinical Impression: Urinary tract infection, Encephalopathy Condition: Stable Prescriptions: New cefdinir 300 mg capsule 300 mg PO BID 7 Days Qty: 14 0RF No Action sertraline [Zoloft] 50 mg tablet 50 mg PO DAILY atorvastatin [Lipitor] 20 mg tablet 20 mg PO BEDTIME insulin lispro [Humalog KwikPen Insulin] 100 unit/mL insulin pen See Rx Instructions .ROUTE .COMPLEX Rx Instructions: 26 unit subcutaneously qam, 24 units at noon,24 units qpm and will take 10-15 units extra prn lisinopril 20 mg tablet 20 mg PO DAILY PRN (Reason: Blood Pressure) levothyroxine [Synthroid] 100 mcg tablet 100 mcg PO DAILY insulin glargine [Lantus Solostar U-100 Insulin] 100 unit/mL (3 mL) insulin pen 60 unit SUBCUT QAM amlodipine 5 mg tablet 5 mg PO DAILY ciprofloxacin HCl 500 mg tablet 500 mg PO Q12H PreserVision AREDS-2 250-90-40-1 mg Capsule 1 tab PO BID Discharge Orders: Discharge ED (Routine); Ordered 01/17/25 Ordered By: Rossy Elizabeth Referrals: Terrance Leiva MD [Primary Care Provider, Family Practice] Discharge Diet: Usual diet Discharge Activity: Increase activity as tolerated Patient Instructions: Opioid Safety, Pain Management, Patient Portal & Katharine Instructions Activity Restrictions/Additional Instructions: Thank you for choosing [facility] for your healthcare needs today. You have been screened and evaluated and felt safe for discharge. Health conditions do change or evolve sometimes and as such it is important that you follow up with your Primary Doctor to be re checked, 3-5 days is a general good time frame for follow up. You are always welcome to return to the ED for re assessment if your symptoms are worsening or you have new concerns Print Language: Bhutanese Coding Level of Care Code ED Printing Equipment Mechanic Apprentice for Deo De Paz
[2025-01-16 21:39] VITALS: BP 144/72; PULSE 89; O2SAT 90
[2025-01-16 21:51] LABS: Hematocrit 38.3 % (37-53); Hemoglobin 13.10 g/dL (11.27-16.99); Mean Corpuscular HGB Conc 34.2 g/dL (30-55); Mean Corpuscular Hemoglobin 31.7 pg (27-33); Mean Corpuscular Volume 92.7 fl (82-101); Nucleated Red Blood Cells % 0 %; Platelet Count 161 10^3/cmm (157-399); Red Blood Count 4.13 10^6/uL (3.85-5.65); White Blood Count 6.60 10^3/uL (3.29-11.43)
[2025-01-16 22:09] LABS: Alanine Aminotransferase 15 U/L (0-41); Albumin Level 4.0 g/dL (3.5-5.2); Alkaline Phosphatase 84 U/L (40-130); Anion Gap 17.1 (5-19); Aspartate Amino Transferase 14 U/L (0-40); Blood Urea Nitrogen 21 mg/dL (8-23); Calcium 9.2 mg/dL (8.5-10.5); Carbon Dioxide 26 mmol/L (22-29); Chloride 100 mmol/L (98-107); Creatinine Clr Calc Pharmacy 57.4585; Globulin 2.8 g/dL (1.3-4.6); Glucose 267 mg/dL (65-115); Osmolality Calculated 300 mOsm/kg (285-295); Potassium 4.1 mmol/L (3.5-5.1); Sodium 139 mmol/L (136-145); Total Protein 6.8 g/dL (6.6-8.7)
[2025-01-16 22:12] LABS: Lactic Sepsis W/Reflex 1.7 mmol/L (0.5-2.2)
[2025-01-16 22:57] VITALS: BP 109/68; PULSE 96; O2SAT 91
[2025-01-17 00:04] VITALS: BP 145/94; PULSE 93; O2SAT 91
[2025-01-17 00:37] VITALS: BP 108/40; PULSE 86; O2SAT 94
[2025-01-17] MEDS: cefTRIAXone 1,000 mg SDV 1000 MG IVP (02:30)
[2025-01-17 02:37] VITALS: BP 158/62; PULSE 61; RESP 17; O2SAT 96
[2025-01-17 03:01] VITALS: BP 142/61; PULSE 65; O2SAT 94
== END 2025-01-17 03:02 | disposition home or self-care (01) ==
PROVIDERS: Emergency Provider Emergency Medicine; PCP Family Medicine
DX: N39.0 Urinary tract infection, site not specified (principal); G93.40 Encephalopathy, unspecified; Z79.4 Long term (current) use of insulin; Z85.46 Personal history of malignant neoplasm of prostate
CPT/HCPCS: 36415; 51798; 71045; 80053; 81001; 83605; 85025; 87040; 87086; 87106; 96361; 96374; 99284; J0696; J7030

== ENCOUNTER → 2025-02-07 11:03 | Outpatient (BNVA) | payer MEDICARE, OTHER, SELFPAY | PROVIDERS: PCP Family Medicine; Visit Provider Podiatrist Foot & Ankle Surgery | DX: E11.42 Type 2 diabetes mellitus with diabetic polyneuropathy (principal); L60.3 Nail dystrophy; L84 Corns and callosities; G62.9 Polyneuropathy, unspecified; I95.9 Hypotension, unspecified; Z79.4 Long term (current) use of insulin | CPT/HCPCS: 11721; 99214 ==

== ENCOUNTER → 2025-02-13 10:48 | Outpatient (BNVA) | payer MEDICARE, OTHER, SELFPAY | PROVIDERS: PCP Family Medicine; Visit Provider Internal Medicine | DX: E11.9 Type 2 diabetes mellitus without complications (principal); E78.2 Mixed hyperlipidemia | CPT/HCPCS: 99204 ==

== ENCOUNTER → 2025-03-23 13:04 | Outpatient (BNVA) | payer MEDICARE, OTHER, SELFPAY | PROVIDERS: PCP Family Medicine; Visit Provider Thoracic Surgery (Cardiothoracic Vascular Surgery) | DX: N30.41 Irradiation cystitis with hematuria (principal) | CPT/HCPCS: 99203 ==

== ENCOUNTER → 2025-04-17 14:28 | Outpatient (BNVA) | payer MEDICARE, OTHER, SELFPAY | PROVIDERS: PCP Family Medicine; Visit Provider Internal Medicine Cardiovascular Disease | DX: N30.41 Irradiation cystitis with hematuria (principal) | CPT/HCPCS: 93005 ==

== ENCOUNTER 2025-04-17 14:48 | Outpatient (CLI) | payer MEDICARE, OTHER, SELFPAY ==
[2025-04-17 15:15] LABS: Hematocrit 40.6 % (37-53); Hemoglobin 12.40 g/dL (11.27-16.99); Mean Corpuscular HGB Conc 30.5 g/dL (30-55); Mean Corpuscular Hemoglobin 26.1 pg (27-33); Mean Corpuscular Volume 85.3 fl (82-101); Nucleated Red Blood Cells % 0 %; Platelet Count 150 10^3/cmm (157-399); Red Blood Count 4.76 10^6/uL (3.85-5.65); White Blood Count 4.98 10^3/uL (3.29-11.43)
[2025-04-17 15:26] LABS: Estmated Average Glucose 157; Hemoglobin A1C 7.1 % (4.0-6.0)
[2025-04-17 15:32] LABS: Alanine Aminotransferase 16 U/L (0-41); Albumin Level 4.3 g/dL (3.5-5.2); Alkaline Phosphatase 135 U/L (40-130); Anion Gap 17.0 (5-19); Aspartate Amino Transferase 16 U/L (0-40); Blood Urea Nitrogen 18 mg/dL (8-23); Calcium 9.1 mg/dL (8.5-10.5); Carbon Dioxide 25 mmol/L (22-29); Chloride 102 mmol/L (98-107); Cholesterol 130 mg/dL (0-200); Globulin 2.7 g/dL (1.3-4.6); Glucose 307 mg/dL (65-115); HDL Cholesterol 34 mg/dL (60-100); Osmolality Calculated 303 mOsm/kg (285-295); Potassium 4.0 mmol/L (3.5-5.1); Sodium 140 mmol/L (136-145); Total Protein 7.0 g/dL (6.6-8.7); Triglycerides 227 mg/dL (0-150)
== END 2025-04-17 14:49 | disposition home or self-care (01) ==
PROVIDERS: PCP Family Medicine; Visit Provider Thoracic Surgery (Cardiothoracic Vascular Surgery)
DX: N30.41 Irradiation cystitis with hematuria (principal); E11.9 Type 2 diabetes mellitus without complications
CPT/HCPCS: 36415; 80053; 80061; 83036; 85025; 85651

== ENCOUNTER → 2025-04-18 10:47 | Outpatient (BNVA) | payer MEDICARE, OTHER, SELFPAY | PROVIDERS: PCP Family Medicine; Visit Provider Internal Medicine Endocrinology, Diabetes & Metabolism | DX: E11.9 Type 2 diabetes mellitus without complications (principal); E78.2 Mixed hyperlipidemia; Z79.4 Long term (current) use of insulin | CPT/HCPCS: 99214 ==

== ENCOUNTER 2025-04-18 13:25 | Outpatient (CLI) | payer MEDICARE, OTHER, SELFPAY ==
--- NOTE | 2025-04-18 13:36 | XR_ITS ---
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 The lungs are fully inflated and clear. Normal cardiomediastinal silhouette. No pleural effusions. Bony structures are intact. XR/XR chest 2V* [id number] IMPRESSION: 1. No acute cardiopulmonary finding.
== END 2025-04-18 13:26 | disposition home or self-care (01) ==
LOC: RAD 13:27
PROVIDERS: PCP Family Medicine; Visit Provider Thoracic Surgery (Cardiothoracic Vascular Surgery)
DX: N30.41 Irradiation cystitis with hematuria (principal)
CPT/HCPCS: 71046

== ENCOUNTER → 2025-04-19 11:14 | Outpatient (BNVA) | payer MEDICARE, OTHER, SELFPAY | PROVIDERS: PCP Family Medicine; Visit Provider Podiatrist Foot & Ankle Surgery | DX: E11.42 Type 2 diabetes mellitus with diabetic polyneuropathy (principal); L60.3 Nail dystrophy; G62.9 Polyneuropathy, unspecified; L84 Corns and callosities; I95.9 Hypotension, unspecified; Z79.4 Long term (current) use of insulin | CPT/HCPCS: 11721 ==

== ENCOUNTER 2025-05-15 18:51 | Observation (INO) | payer MEDICARE, OTHER, SELFPAY ==
[2025-05-15 18:51] VITALS: BP 113/70; RESP 20; TEMP 37.3; BMI 20.8
--- NOTE | 2025-05-15 18:55 | ECG_ITS ---
[facility] Test Date: 2025-05-15 Pat Name: Scotty Marsh Department: Room: Gender: Male Neon Tube Pumper: SHILPI: 1935 Requested By: Edilberto Lane Order Number: [id number] Olivier MD: Angel Smith M.D. Measurements Intervals Powers Rate: 91 P: 0 RI: 0 QRS: 58 QRSD: 96 T: 69 QT: 355 QTc: 438 Interpretive Statements Sinus rhythm Non specific T wave changes Compared to ECG 04/17/2025 14:36:19 No significant change Electronically Signed On 05-16-2025 10:12:27 SUPERVISOR MACHINE SETTER by Angel Smith M.D. [email or web address]
--- NOTE | 2025-05-15 19:00 | CTR_ITS ---
PROCEDURE INFORMATION: Exam: CT Head Without Contrast Exam date and time: 05/15/2025 7:20 PM Age: 89 years old Clinical indication: Altered mental status/memory loss; Additional info: AMS TECHNIQUE: Imaging protocol: Computed tomography of the head without contrast. Radiation optimization: All CT scans at this facility use at least one of these dose optimization techniques: automated exposure control; mA and/or kV adjustment per patient size (includes targeted exams where dose is matched to clinical indication); or iterative reconstruction. COMPARISON: CT head wo con* [id number] 01/04/2025 11:07 AM RADIATION DOSE METRICS: Total DLP (mGy-cm): 1105.38 FINDINGS: Brain: Chronic small-vessel ischemic change. Focus of encephalomalacia in the left frontal lobe. Cerebral ventricles: [id number] involutional changes of the ventricles and sulci. Paranasal sinuses: Visualized sinuses are unremarkable. No fluid levels. Mastoid air cells: Visualized mastoid air cells are well aerated. Bones: Vertebral and carotid atheromatous vascular calcifications. Soft tissues: Unremarkable. CT/CT head wo con* [id number] IMPRESSION: No acute intracranial abnormality.
--- OUTSIDE RECORDS SUMMARY | 2025-05-15 19:00 | XMS_ITS | Encounter Summary ---
Author Organization [facility] Address [address] [place] [address] Care Team Providers Care Company Laundry Worker Name Role Phone Unavailable Primary Care Provider Unavailabl e Encounter Details Date Type Department Care Team (Late st Contact Info) Description 05/22/2004 Outpatient Historical [facility] [address] [place] [id number] Mick Salazar S, OD [address] [place] [id number] DIABETES MELLITUS TYPE II-UNCOMPL ([facility]) (Primary Dx); SENILE CATARACT NOS Social History Tobacco Use Types Packs/Day Years Used Date Smoking Tobacco: Never Assessed Sex and Gender Information Value Date Recorded Sex Assigned at Not on file 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
--- OUTSIDE RECORDS SUMMARY | 2025-05-15 19:00 | XMS_ITS | Clinical Summary ---
Author Organization [facility] Address [address] [place] [address] Care Team Providers Care Vendor Management Specialist Name Role Phone Unavailable Primary Care Provider [...] LEVOTHYROXINE SODIUM (LEVOTHYROXINE PO) Take by mouth. Acti ve BICALUTAMIDE (CASODEX PO) Take by mouth. 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
--- OUTSIDE RECORDS SUMMARY | 2025-05-15 19:00 | XMS_ITS | Data Portability ---
Author Organization KIP Chung [facility], [place], [facility] Address [address] [address] Assessment Encounter Date Assessment Date Assessment LastModified by Organization Details LastModified Time 02/10/2025 02/10/2025 will assess for need of transfusion. d/c amlodipine. Not available 02/10/2025 12:10:09 Plan of Treatment Reminders Order Date Submit Date Provider Last Modified By Organization Details Last Modified Time Details Appointments OFFICE VISIT 15 2025 11:00A Maite Leiva MD Not available Not available Not available Lab CBC 2024 025 [facility], [address], [facility] [place], [address], 02/10/2025 12:32:02 CMP, serum or plasma 2024 025 [facility], [address] [facility], [facility] [place], [address], 02/10/2025 13:36:13 hemoglo bin A1C/hem oglobin total, QN, blood 2024 025 [facility], [address], [facility] 1, [place], [address], 12/12/2024 15:29:11 CBC [email or web address] [facility], [address], [place] [address], [place], [address], 12/19/2024 08:27:01 CBC 2024 025 [facility], [address] [facility], [address], [place], [address], 12/12/2024 15:25:52 CMP, serum or plasma 2024 025 [facility], [address] [facility], [address], [place], [address], 12/12/2024 16:07:42 TSH, serum or plasma 2024 025 [email or web address] [facility], [address] [facility], [facility] 1, [place], [address], 12/19/2024 08:27:01 PSA, serum or plasma 2024 025 [facility], [address] [facility], [place], [address], 12/13/2024 05:47:[address] referra l 2024 025 [email or web address] [facility], [address], [place], [address], 12/14/2024 15:09:51 Procedures colonos copy screeni ng (PROC) 2024 025 Not available 01/11/2025 12:40:41 Surgeries None recorde d. Imaging XR, wrist, 3 or more view 2024 025 [email or web address] [facility], [address] [place], [address], 05/04/2025 14:10:11 Medication Orders Rexulti 2 mg tablet 2024 025 KARINA [facility], [address] [facility], [place], [address], 03/30/2025 12:38:53 Rexulti 0.5 mg tablet 2024 025 [facility] [place], [facility] [place], [address], 02/28/2025 14:31:39 Patient TargetsNo targets recorded. Patient InstructionsNo instructions recorded. Reason for Referral Urologist Referral for Reten tion of urine Referring Physician: Terrance Leiva, Family Medicine, Encounter Date: 12/12/2024 Results Created Date Observation Date Name Description Value Unit Range Abnormal Flag Note LastModifiedBy Organization Detail LastModifiedTime 12/13/1912/12/2024 CBC WBC 7.2 x10 4.5-10 .5 Not Available [facility] [address] [facility] 1, [place], [address], 12/12/2024 15:25:52 12/13/19 25 12/12/2024 CBC RBC 5.03 x10 4.30-5 .90 Not Available [facility] [address] [facility] 1, [place], [address], 12/12/2024 15:25:52 12/13/19 25 12/12/2024 CBC HGB 16.0 g/dL 13.5-1 8.0 Not Available [facility] [address] [facility] 1, [place], [address], 12/12/2024 15:25:52 12/13/19 25 12/12/2024 CBC HCT 48.9 % 35.0-6 0.0 Not Available [facility] [address] [facility] 1, [place], [address], 12/12/2024 15:25:52 12/13/19 25 12/12/2024 CBC MCV 97.3 fL 80.0-9 9.9 Not Available [facility] [address] [facility] 1, [place], [address], 12/12/2024 15:25:52 12/13/19 25 12/12/2024 CBC MCH 31.8 pg 27.0-3 2.0 Not Available [facility] [address] [facility] 1, [place], [address], 12/12/2024 15:25:52 12/13/19 25 12/12/2024 CBC MCHC 32.7 g/dL 32.0-3 6.0 Not Available [facility] [address] [facility] 1, [place], [address], 12/12/2024 15:25:52 12/13/19 25 12/12/2024 CBC RDW 13.4 % 11.5-1 4.5 Not Available [facility] [address] [facility] 1, [place], [address], 12/12/2024 15:25:52 12/13/19 25 12/12/2024 CBC plt 117.8 x10 150.0- 451.0 low Not Available [facility] [address] [facility] 1, [place], [address], 12/12/2024 15:25:52 12/13/19 25 12/12/2024 CBC lymphocytes % 22.6 % 20.0-5 0.0 Not Available [facility] [address] [facility] 1, [place], [address], 12/12/2024 15:25:52 12/13/19 25 12/12/2024 CBC granulcytes % 63.9 % 30.0-7 0.0 Not Available [facility] [address] [facility] 1, [place], [address], 12/12/2024 15:25:52 12/13/19 25 12/12/2024 CBC monocytes % 10.3 % 2.0-16 .0 Not Available [facility] [address] [place] [facility], [place], [address], 12/12/2024 15:25:52 12/13/19 25 12/12/2024 CBC granulcytes# 4.6 x10 Not Filomena ilable [facility] [address] [place] [facility], [place], [address], 12/12/2024 15:25:52 12/13/19 25 12/12/2024 CBC lymphocytes # 1.6 x10 Not Available [facility] [address] [place] [facility], [place], [address], 12/12/2024 15:25:52 12/13/19 25 12/12/2024 CBC monocytes # 0.7 x10 Not Avai lable [facility] [address] [facility] 1, [place], [address], 12/12/2024 15:25:52 12/13/19 25 12/12/2024 HBA1C hemaglobin A1C 6.6 4.2-6. 5 high Not Available [facility] [address] [place] [facility], [place], [address], 12/12/2024 15:29:10 12/13/19 25 12/12/2024 CMP (MALE ) glucose 78.0 mg/dL 60.0-9 9.0 Not Available [facility] [address] [place] [facility], [place], [address], 12/12/2024 16:07:42 12/13/19 25 12/12/2024 CMP (MALE ) BUN (blood urea nitrogen) 22.0 mg/dL 10.0-2 6.0 Not Available [facility] [address] [place] [facility], [place], [address], 12/12/2024 16:07:42 12/13/19 25 12/12/2024 CMP (MALE ) creatinine (serum) 0.8 mg/dL 0.4-1. 5 Not Available [facility] [address] [facility] 1, [place], [address], 12/12/2024 16:07:42 12/13/19 25 12/12/2024 CMP (MALE ) BUN/creatini ne ratio 27.50 ratio Not Available [facility] [address] [facility] 1, [place], [address], 12/12/2024 16:07:42 12/13/19 25 12/12/2024 CMP (MALE ) eGFR calculated 97.2 Not Available [facility] [address] [facility] 1, [place], [address], 12/12/2024 16:07:42 12/13/19 25 12/12/2024 CMP (MALE ) total protein 7.4 g/dL 6.0-8. 5 Not Available [facility] [place] [facility] [address] [facility] 1, [place], [address], 12/12/2024 16:07:42 12/13/19 25 12/12/2024 CMP (MALE ) total bilirubin 0.7 mg/dL 0.2-1. 3 Not Available [facility] [place] [facility] [address] [place] Alexe [facility] 1, [place], [address], 12/12/2024 16:07:42 12/13/19 25 12/12/2024 CMP (MALE ) albumin 4.4 g/dL 3.5-5. 5 Not Available [facility] [place] [facility] [address] [facility] 1, [place], [address], 12/12/2024 16:07:42 12/13/19 25 12/12/2024 CMP (MALE ) globulin 3.0 calc Not Available [facility] [address] [facility] Manuela [facility] 1, [place], [address], 12/12/2024 16:07:42 12/13/19 25 12/12/2024 CMP (MALE ) AST (SGOT) 28.0 U/L 0.0-46 .0 Not Available [facility] [place] [facility] [address] [facility] 1, [place], [address], 12/12/2024 16:07:42 12/13/19 25 12/12/2024 CMP (MALE ) altv (SGPT) 26.0 U/L 13.0-6 9.0 normal Not Available [facility] [address] [facility] 1, [place], [address], 12/12/2024 16:07:42 12/13/19 25 12/12/2024 CMP (MALE ) A/G ratio 1.5 ratio Not Available [facility] [address] [facility] 1, [place], [address], 12/12/2024 16:07:42 12/13/19 25 12/12/2024 CMP (MALE ) ALP phos 81.0 U/L 30.0-1 40.0 normal Not Available [facility] [address] [facility] 1, [place], [address], 12/12/2024 16:07:42 12/13/19 25 12/12/2024 CMP (MALE ) calcium 9.8 mg/dL 8.4-10 .5 Not Available [facility] [address] [facility] 1, [place], [address], 12/12/2024 16:07:42 12/13/19 25 12/12/2024 CMP (MALE ) sodium 142.0 mmol/ L 136.0- 145.0 Not Available [facility] [address] [address], [place], [address], 12/12/2024 16:07:42 12/13/19 25 12/12/2024 CMP (MALE ) potassium 4.5 mmol/ L 3.5-5. 1 Not Available [facility] [place] [facility] [address] [facility] 1, [place], [address], 12/12/2024 16:07:42 12/13/19 25 12/12/2024 CMP (MALE ) chloride 104.0 mmol/ L 98.0-1 10.0 normal Not Available [facility] [address] [facility] 1, [place], [address], 12/12/2024 16:07:42 12/13/19 25 12/12/2024 CMP (MALE ) C02 31.0 mmol/ L 22.0-3 1.0 Not Available [facility] [address] [facility] 1, [place], [address], 12/12/2024 16:07:42 12/13/19 25 12/12/2024 CMP (MALE ) anion gap 7.0 calc Not Available [facility] [address] [facility] 1, [place], [address], 12/12/2024 16:07:42 12/13/19 25 12/12/2024 CMP (MALE ) osmolality 295.2 calc Not Available [facility] [address] [facility] 1, [place], [address], 12/12/2024 16:07:42 12/13/1912/12/2024 TSH TSH 1.26 uIU/m L 0.49-3 .82 Not Available [facility] [address] [facility] 1, [place], [address], 12/12/2024 16:15:25 12/13/19 25 12/13/2024 PSA, TOTAL PSA, total <0.04 NG/mL < or = 4.00 normal The total PSA value from this assay frankie guillermo is stand arasuncionz ed again st the WHO stand loraine. The test resul t will be appro ximat moustapha 20% lower when kenan red to the equim olar- stand ardiz ed total PSA (Rodríguez man Coult er). Kenan rison of seria l PSA resul ts shoul d be inter prete d with this fact in mind. This test was perfo rmed using the Sieme ns chemi lumin escen t metho d. Value s obtai jose from diffe rent assay metho ds canno t be used inter huntley eably . PSA level s, regar dless of value , shoul d not be inter prete d as absol blackfeet evide nce of the prese nce or absen ce of disea se. Not Available [employer] [address] [place], [address], 12/13/2024 05:47:13 02/11/20 25 02/10/2025 CBC WBC 6.1 x10 4.5-10 .5 Not Available [facility] [address], [address], 02/10/2025 12:32:02 02/11/20 25 02/10/2025 CBC RBC 2.85 x10 4.30-5 .90 low Not Available [facility] [address] [facility] 1, [place], [address], 02/10/2025 12:32:02 02/11/20 25 02/10/2025 CBC HGB 9.1 g/dL 13.5-1 8.0 low Not Available [facility] [address] [facility] 1, [place], [address], 02/10/2025 12:32:02 02/11/20 25 02/10/2025 CBC HCT 28.5 % 35.0-6 0.0 low Not Available [facility] [address] [facility] 1, [place], [address], 02/10/2025 12:32:02 02/11/20 25 02/10/2025 CBC MCV 100.0 fL 80.0-9 9.9 high Not Available [facility] [address] [facility] 1, [place], [address], 02/10/2025 12:32:02 02/11/20 25 02/10/2025 CBC MCH 31.8 pg 27.0-3 2.0 Not Available [facility] [address] [facility] 1, [place], [address], 02/10/2025 12:32:02 02/11/20 25 02/10/2025 CBC MCHC 31.8 g/dL 32.0-3 6.0 low Not Available [facility] [address] [facility] 1, [place], [address], 02/10/2025 12:32:02 02/11/20 25 02/10/2025 CBC RDW 14.5 % 11.5-1 4.5 Not Available [facility] [place] [facility] [address] [facility] 1, [place], [address], 02/10/2025 12:32:02 02/11/20 25 02/10/2025 CBC plt 182.5 x10 150.0- 451.0 Not Available [facility] [place] [facility] [address] [facility] 1, [place], [address], 02/10/2025 12:32:02 02/11/2002/10/2025 CBC lymphocytes % 18.5 % 20.0-5 0.0 low Not Available [facility] [place] [facility] [address] [facility] 1, [place], [address], 02/10/2025 12:32:02 02/11/20 25 02/10/2025 CBC granulcytes % 69.0 % 30.0-7 0.0 Not Available [facility] [place] [facility] [address] [facility] 1, [place], [address], 02/10/2025 12:32:02 02/11/20 25 02/10/2025 CBC monocytes % 8.5 % 2.0-16 .0 Not Available [facility] [address] [facility] 1, [place], [address], 02/10/2025 12:32:02 02/11/20 25 02/10/2025 CBC granulcytes# 4.2 x10 Not Filomena ilable [facility] [address] [place] [address] [address], [place], [address], 02/10/2025 12:32:02 02/11/20 25 02/10/2025 CBC lymphocytes # 1.1 x10 Not Available [facility] [address] [facility] [address] [address], [place], [address], 02/10/2025 12:32:02 02/11/20 25 02/10/2025 CBC monocytes # 0.5 x10 Not Avai lable [facility] [address] [address], [place], [address], 02/10/2025 12:32:02 02/11/20 25 02/10/2025 CMP (FEMA LE) glucose 202.0 mg/dL 60.0-9 9.0 high Not Available [facility] [address] [address], [place], [address], 02/10/2025 13:36:13 02/11/20 25 02/10/2025 CMP (FEMA LE) BUN (blood urea nitrogen) 20.0 mg/dL 10.0-2 6.0 Not Available [facility] [address] [facility] Manuela [facility] 1, [place], [address], 02/10/2025 13:36:13 02/11/20 25 02/10/2025 CMP (FEMA LE) creatinine (serum) 0.8 mg/dL 0.4-1. 5 Not Available [facility] [address] [facility] [address], [place], [address], 02/10/2025 13:36:13 02/11/2002/10/2025 CMP (FEMA LE) BUN/creatini ne ratio 25.00 ratio Not Available [facility] [address] [facility] 1, [place], [address], 02/10/2025 13:36:13 02/11/20 25 02/10/2025 CMP (FEMA LE) eGFR calculated 97.2 Not Available [facility] [place] [facility] [address] [facility] [address], [place], [address], 02/10/2025 13:36:13 02/11/20 25 02/10/2025 CMP (FEMA LE) total protein 6.1 g/dL 6.0-8. 5 Not Available [facility] [address] [facility] 1, [place], [address], 02/10/2025 13:36:13 02/11/20 25 02/10/2025 CMP (FEMA LE) total bilirubin 0.5 mg/dL 0.2-1. 3 Not Available [facility] [address] [facility] 1, [place], [address], 02/10/2025 13:36:13 02/11/20 25 02/10/2025 CMP (FEMA LE) albumin 3.7 g/dL 3.5-5. 5 Not Available [facility] [address] [facility] 1, [place], [address], 02/10/2025 13:36:13 02/11/20 25 02/10/2025 CMP (FEMA LE) globulin 2.4 calc Not Available [facility] [address] [facility] 1, [place], [address], 02/10/2025 13:36:13 02/11/20 25 02/10/2025 CMP (FEMA LE) AST (SGOT) 25.0 U/L 0.0-46 .0 Not Available [facility] [address] [place] [facility], [place], [address], 02/10/2025 13:36:13 02/11/20 25 02/10/2025 CMP (FEMA LE) altv (SGPT) 13.0 U/L 13.0-6 9.0 normal Not Available [facility] [address] [place] [facility], [place], [address], 02/10/2025 13:36:13 02/11/20 25 02/10/2025 CMP (FEMA LE) A/G ratio 1.5 ratio Not Available [facility] [address] [facility] [address], [place], [address], 02/10/2025 13:36:13 02/11/20 25 02/10/2025 CMP (FEMA LE) ALP phos 81.0 U/L 30.0-1 40.0 normal Not Available [facility] [place] [facility] [address] [place] [facility], [place], [address], 02/10/2025 13:36:13 02/11/20 25 02/10/2025 CMP (FEMA LE) calcium 8.4 mg/dL 8.4-10 .5 Not Available [facility] [place] [facility] [address] [facility] 1, [place], [address], 02/10/2025 13:36:13 02/11/20 25 02/10/2025 CMP (FEMA LE) sodium 139.0 mmol/ L 136.0- 145.0 Not Available [facility] [address] [facility] 1, [place], [address], 02/10/2025 13:36:13 02/11/20 25 02/10/2025 CMP (FEMA LE) potassium 4.2 mmol/ L 3.5-5. 1 Not Available [facility] [address] [facility] [address], [place], [address], 02/10/2025 13:36:13 02/11/20 25 02/10/2025 CMP (FEMA LE) chloride 107.0 mmol/ L 98.0-1 10.0 normal Not Available [facility] [address] [facility] [address], [place], [address], 02/10/2025 13:36:13 02/11/20 25 02/10/2025 CMP (FEMA LE) C02 26.0 mmol/ L 22.0-3 1.0 Not Available [facility] [address] [facility] [address], [place], [address], 02/10/2025 13:36:13 02/11/20 25 02/10/2025 CMP (FEMA LE) anion gap 6.0 calc Not Available [facility] [address] [facility] [address], [place], [address], 02/10/2025 13:36:13 02/11/20 25 02/10/2025 CMP (FEMA LE) osmolality 294.8 calc Not Available [facility] [address] [facility] [address], [place], [address], 02/10/2025 13:36:13 05/04/20 25 05/04/2025 XR, wrist , 3 or more view No observ ation record ed. [facility] [address] [place], [address], 05/05/2025 11:57:14 Result Notes None recorded. Problems Name Problem SNOMED Code Status Onset Date Resolution Date Notes Provider Name and Address Organization Details Recorded Time History of malignant neoplasm of prostate 928175699 Active 2024 KIP Dai - [facility] 5 14:08:54 Alzheimer's disease 68593709 Active 2024 Eugenie Whaley null, [facility] 5 14:09:17 Hypercholes terolemia 25872578 Active 2024 Eugenie Whaley null, [facility] L.L.CMelonie 14:10:32 Bilateral degeneratio n of macula 1770275252316 9100 Active 2024 Eugenie Whaley null, [facility] L.L.CMelonie 14:11:39 Essential hypertensio n 44254759 Active 2024 Eugenie Whaley null, [facility] L.L.CMelonie 14:12:03 Hypothyroid ism 48005766 Active 2024 Eugenie Whaley null, [facility] L.L.CMelonie 14:12:55 History of non-ST segment elevation myocardial infarction 316033256 Active 2024 FERMÍN mancera, [facility] L.L.CMelonie 09:26:10 Insulin treated type 2 diabetes mellitus 048538528 Active 2024 FERMÍN mancera, [facility] L.L.CMelonie 08:24:22 Dementia 21890505 Active 2024 FERMÍN DIAZ null, [facility] 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 12:38:46 Postoperati ve urinary incontinenc e 4367377730 Active 2024 Terrance Leiva MD [address] [place], [address], [facility], LMelonieLAntwon 12:40:59 Problem Notes None recorded. Procedures Surgical History Date Name Laterality Status Provider Name and Address Organization Details Recorded Time 01/29/20 25 cystoscopy completed FERMÍN DIAZ [facility], LMelonieLAntwon 01/31/2025 14:34:17 06/22/18 93 Prostatectomy completed [facility], LMelonieLAntwon 12/12/2024 14:24:17 Back Surgery completed [facility], SungLAntwon 12/12/2024 14:24:34 Stent completed [facility], LMelonieLMelonieCMelonie 12/12/2024 14:24:53 excision of malignant neoplasm completed [facility], LMelonieLMelonieCMelonie 12/12/2024 14:25:26 Imaging Results None recorded. Procedure Notes None recorded. Medical Equipment None Reported. Allergies Allergen ID Allergen Name Allergen Category Reaction Reaction Severity Criticality Documentation Date Start Date Code Code System Note Provider Name and Address Organization Details Recorded Time 6[address]11 Claritin- D medicatio n Not available Not available Not available 12/08/2024 MARIA DEL CARMEN mancera [facility], SungLAntwon 16:44:59 Medications Name Sig Start Date Stop Date Status Note LastModified by Organization Details LastModified Time atorvastati n 20 mg tablet Take 1 tablet every day by oral route. active Not Available Not Available No t Available oxybutynin chloride ER 10 mg tablet,exte nded release 24 hr TAKE 1 TABLET BY MOUTH EVERY DAY NEEDED active Not Available Not Available No t Available hydrocodone 5 mg-acetamin ophen 325 mg tablet TAKE ONE TABLET BY MOUTH EVERY 4 HOURS NEEDED FOR PAIN for SEVEN DAYS 12/12 completed Not Available Not Available Not Available fluconazole 200 mg tablet TAKE 2 TABLETS BY MOUTH EVERY DAY for 10 days 03/30 completed Not Available Not Available Not Available lisinopril 20 mg tablet TAKE 1 TABLET BY MOUTH EVERY MORNING active Not Available Not Available No t Available sertraline 100 mg tablet Take 1 tablet every day by oral route. active Not Available Not Available No t Available amlodipine 5 mg tablet Take 1 tablet every day by oral route for 30 days. 03/30 completed Not Available Not Available Not Available ciprofloxac in 500 mg tablet TAKE 1 TABLET BY MOUTH EVERY TWELVE HOURS for 10 days 02/10 completed Not Available Not Available Not Available sulfamethox azole 800 mg-trimetho prim 160 mg tablet TAKE ONE TABLET BY MOUTH TWICE DAILY for 10 DAYS 12/12 completed Not Available Not Available Not Available levothyroxi ne 100 mcg tablet TAKE 1 TABLET BY MOUTH EVERY DAY active Not Available Not Available No t Available cephalexin 500 mg capsule take 1 capsule BY MOUTH TWICE DAILY 12/30 completed Not Available Not Available Not Available pantoprazol e 40 mg tablet,abran yed release TAKE 1 TABLET BY MOUTH EVERY DAY 03/30 completed Not Available Not Available Not Available cefdinir 300 mg capsule take 1 capsule BY MOUTH TWICE DAILY FOR 7 DAYS 02/10 completed Not Available Not Available Not Available memantine 5 mg tablet Take 2 tablets twice a day by oral route for 90 days. 2024 active Not Available Not Available Not Avai lable Novolog FlexPen U-100 Insulin 20 units before every meal 12/12 completed Not Available Not Available Not Available PreserVisio n AREDS active Not Available Not Available Not Available Lantus Solostar U-100 Insulin 60 units daily active Not Available Not Available No t Available Humalog KwikPen (U-100) Insulin 100 unit/mL subcutaneou s 20 units with every meal active Not Available Not Available No t Available Rexulti 1 mg tablet TAKE 1 TABLET BY MOUTH EVERY DAY active Not Available Not Available No t Available Rexulti 0.5 mg tablet TAKE 1 TABLET BY MOUTH EVERY DAY FOR SEVEN DAYS THEN TWO tabs daily FOR 14 DAYS 02/28 completed Not Available Not Available Not Available Rexulti 2 mg tablet Take 1 tablet every day by oral route for 90 days. 2024 active Not Available Not Available Not Avai lable FreeStyle Simin 2 Sensor kit USE DIRECTED active Not Available Not Available No t Available Vitals Date Recorded Body height Body mass index (BMI) Body weight Heart rate Oxygen saturation Body temperature Systolic And Diastolic Provider Name and Address Organization Details Last Updated DateTime 5 173.99 cm 25.8 kg/m2 58004.8 9 g 62 /min 93 % 97.6 [degF] 120/70 mm[Hg] [facility] 14:20:22 Date Recorded Body height Body mass index (BMI) Body weight Body temperature Oxygen saturation Heart rate Systolic And Diastolic Provider Name and Address Organization Details Last Updated DateTime 5 173.99 cm 26.2 kg/m2 93776.6 6 g 98.1 [degF] 96 % 64 /min 150/70 mm[Hg] CATHY GRACE [facility] 5 11:58:11 Date Recorded Body height Body mass index (BMI) Body weight Body temperature Respiratory rate Oxygen saturation Heart rate Systolic And Diastolic Provider Name and Address Organization Details Last Updated DateTime 5 173.99 cm 23.7 kg/m2 37275.5 9 g 97.6 [degF] 17 /min 98 % 74 /min 120/60 mm[Hg] MARIA DEL CARMEN MORA [facility] 5 11:45:15 Date Recorded Body height Body mass index (BMI) Body weight Body temperature Heart rate Oxygen saturation Systolic And Diastolic Provider Name and Address Organization Details Last Updated DateTime 5 173.99 cm 23.4 kg/m2 67336.4 1 g 97.4 [degF] 60 /min 93 % 126/68 mm[Hg] [facility] 12:24:36 Date Recorded Body height Body mass index (BMI) Body weight Body temperature Heart rate Oxygen saturation Systolic And Diastolic Provider Name and Address Organization Details Last Updated DateTime 5 173.99 cm 23.5 kg/m2 43912 g 97.8 [degF] 70 /min 96 % 132/62 mm[Hg] FERMÍN DIAZ [facility] 5 13:24:39 Social History Question Answer Notes LastModified by Organizat ion Details LastModified Time Tobacco Smoking Status Never Smoker MARIA DEL CARMENMAGGIE MORA fiordaliza [facility] 12/08/2024 16:48:19 What Was The Date Of Your Most Recent Tobacco Screening? 02/10/2025 [email or web address] Information not available 02/10/2025 Sex: Unknown Functional Status Question Answer Note LastModified by Organizat ion Details LastModified Time Do you use any illicit or recreational drugs? No Information not available 12/12/2024 Do you or have you ever used any other forms of tobacco or nicotine? No [email or web address] Information not available 02/10/2025 What is your level of alcohol consumption? None Information not available 12/12/2024 Do you or have you ever used any nicotine-free cigarettes, vape, or chewing tobacco? No [email or web address] Information not available 02/10/2025 Mental Status None recorded. Family History Nothing Reported. Medical History No medical history recorded. Immunizations Vaccine Type Date Status Note Provider Nam e and Address Organization Details Recorded Time COVID-19, mRNA, LNP-S, PF, 30 mcg/0.3 mL dose 1 completed Not Available [facility] 05/04/2025 12:49:38 COVID-19, mRNA, LNP-S, PF, 30 mcg/0.3 mL dose 1 completed Not Available [facility] 05/04/2025 12:49:38 COVID-19, mRNA, LNP-S, PF, 30 mcg/0.3 mL dose 1 completed Not Available [facility] 05/04/2025 12:49:38 Influenza, split virus, trivalent, preservative 2 completed Not Available [facility] 05/04/2025 12:49:38 Influenza, split virus, trivalent, preservative 3 completed Not Available [facility] 05/04/2025 12:49:38 Past Encounters Encounter ID Performer Location Encounter Start Date Encounter Closed Date Diagnosis/Indication Diagnosis SNOMED-CT Code Diagnosis ICD10 Code Diagnosis IMO Codes Diagnosis Note [id number] GLADIS PURI [facility] ([facility]) [address] [place] [phone] 5 12/08/2024 16:32:25 12/08/2024 17:39:05 Acute retention of urine 853323074 R33.8 [id number] Patient sent to ER for further evaluation and treatment. Report called to ER staff by Maura JAMIL. [id number] Terrance Leiva [facility]) [address] [place] [address] [phone] 12/12/2024 13:16:28 12/13/2024 10:01:13 Retention of urine 304933184 R33.9 45193 Alzheimer's disease 2692 9004 G30.9 F02.80 0032294474 Hypothyroidism 98816685 E03.9 19403319 Hypercholesterolemia 136 72549 E78.00 908151 History of malignant neoplasm of prostate 617486976 Z85.46 053716 without cathing he is not able to he is going by leaking. 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
--- OUTSIDE RECORDS SUMMARY | 2025-05-15 19:00 | XMS_ITS | Continuity of Care Document ---
Author Organization [facility] L[facility]ie, [facility] ([facility]) Address [address] [place] [address] Assessment No assessment recorded. Plan of Treatment Reminders Order Date Submit Date Provider Last Modified By Organization Details Last Modified Time Details Appointments OFFICE VISIT 15 2025 11:00A M Terrance Leiva MD Not available Not available Not available Lab None recorded . Referral None recorded . Procedures None recorded . Surgeries None recorded . Imaging None recorded . Medication Orders Rexulti 2 mg tablet 2024 025 [employer] [facility], [address] [place] [address], [phone], 03/30/2025 12:38:53 Patient TargetsNo targets recorded. Patient InstructionsNo instructions recorded. Reason for Referral None Reported. Results Created Date Observation Date Name Description Value Unit Range Abnormal Flag Note LastModifiedBy Organization Detail LastModifiedTime 05/04/20 25 05/04/2025 XR, wrist , 3 or more view No observ ation record ed. [facility] [address] [place], [address], 05/05/2025 11:57:14 Result Notes None recorded. Problems Name Problem SNOMED Code Status Onset Date Resolution Date Notes Provider Name and Address Organization Details Recorded Time History of malignant neoplasm of prostate 264490696 Active 2024 KIP Dai [facility], [facility] 14:08:54 Alzheimer's disease 08523717 Active 2024 Eugenie mancera [facility] 14:09:17 Hypercholes terolemia 04433264 Active 2024 Eugenie Whaley null, [facility] 14:10:32 Bilateral degeneratio n of macula 4769833004028 9100 Active 2024 Eugenie Whaley null, [facility] 14:11:39 Essential hypertensio n 54221859 Active 2024 Eugenie Whaley null, [facility] 14:12:03 Hypothyroid ism 90303937 Active 2024 Eugenie Whaley null, [facility] 14:12:55 History of non-ST segment elevation myocardial infarction 126300738 Active 2024 FERMÍN DIAZ null, [facility] 09:26:10 Insulin treated type 2 diabetes mellitus 820016195 Active 2024 FERMÍN DIAZ null, [facility] 08:24:22 Dementia 03988663 Active 2024 FERMÍN mancera, [facility] 14:20:04 Primary degenerativ e dementia of the Alzheimer type, senile onset 784980151 Active 2024 Terrance Leiva MD [address] [place] [address], [phone], [facility] 12:38:46 Postoperati ve urinary incontinenc e 9153497439 Active 2024 Terrance Leiva MD [address] [place] [address], [phone], [facility], [place] 12:40:59 Problem Notes None recorded. Procedures Surgical History Date Name Laterality Status Provider Name and Address Organization Details Recorded Time 01/29/20 25 cystoscopy completed FERMÍN EMILY [facility], [place] 01/31/2025 14:34:17 06/22/18 93 Prostatectomy completed [facility], [place] 12/12/2024 14:24:17 Back Surgery completed [facility], [place]ung[place]twon 12/12/2024 14:24:34 Stent completed [facility], [place] 12/12/2024 14:24:53 excision of malignant neoplasm completed [facility], [place] 12/12/2024 14:25:26 Imaging Results None recorded. Procedure Notes None recorded. Medical Equipment None Reported. Allergies Allergen ID Allergen Name Allergen Category Reaction Reaction Severity Criticality Documentation Date Start Date Code Code System Note Provider Name and Address Organization Details Recorded Time 51753 Claritin- D medicatio n Not available Not available Not available 12/08/2024 MARIA DEL CARMEN mancera [facility], [place] 16:44:59 Medications Name Sig Start Date [...] Updated DateTime 5 173.99 cm 23.4 kg/m2 36470.4 1 g 97.4 [degF] 60 /min 93 % 126/68 mm[Hg] Eugenie Whaley [facility] 5 12:24:36 Social History Question Answer Notes LastModified by Organizat ion Details LastModified Time Tobacco Smoking Status Never Smoker MARIA DEL CARMENMAGGIE MORA fiordaliza [facility] 12/08/2024 16:48:19 What Was The Date Of Your Most Recent Tobacco Screening? 02/10/2025 [email or web address] Information not available 02/10/2025 Sex: Unknown Functional Status Question Answer Note LastModified by Organizat ion Details LastModified Time Do you use any illicit or recreational drugs? No Information not available 12/12/2024 Do you or have you ever used any other forms of tobacco or nicotine? No [email or web address] Information not available 02/10/2025 What is your level of alcohol consumption? None Information not available 12/12/2024 Do you or have you ever used any nicotine-free cigarettes, vape, or chewing tobacco? No [email or web address] Information not available 02/10/2025 Mental Status None recorded. Family History Nothing Reported. Medical History No medical history recorded. Immunizations Vaccine Type Date Status Note Provider Nam e and Address Organization Details Recorded Time COVID-19, mRNA, LNP-S, PF, 30 mcg/0.3 mL dose 1 completed Not Available [facility] 05/04/2025 12:49:38 COVID-19, mRNA, LNP-S, PF, 30 mcg/0.3 mL dose 1 completed Not Available [facility] 05/04/2025 12:49:38 COVID-19, mRNA, LNP-S, PF, 30 mcg/0.3 mL dose 1 completed Not Available [facility] 05/04/2025 12:49:38 Influenza, split virus, trivalent, preservative 2 completed Not Available [facility] 05/04/2025 12:49:38 Influenza, split virus, trivalent, preservative 3 completed Not Available [facility] 05/04/2025 12:49:38 Past Encounters Encounter ID Performer Location Encounter Start Date Encounter Closed Date Diagnosis/Indication Diagnosis SNOMED-CT Code Diagnosis ICD10 Code Diagnosis IMO Codes Diagnosis Note [id number] Terrance Leiva MD [facility] ([facility]) [address] [place] [address] 03/30/2025 12:11:24 04/04/2025 12:07:34 Primary degenerative dementia of the Alzheimer type, senile onset 536401328 G30.1 F02.B11 7353067562 History of malignant neoplasm of prostate 568742819 Z85.46 649620 without cathing he is not able to he is going by leaking. renal function as normal Postoperat gray urinary incontinence 1219938851 N99.89 R32 8652093160 Health Concerns Section Related Observation LastModified by Organization Detai ls LastModified Time None Recorded Concern Status LastModified by Organization Details LastModified Time None Recorded Payers Encounter Date Sequence Insurance Name Policy Number Policy Burgos Covered Member ID Burgos Member ID Guarantor Name 03/30/2025 1 [place] Doadiel Marsh [id number] Scotty Marsh 03/30/2025 2 FOR LIFE ( - MEDICARE SUPPLEMENT) Scotty Marsh [id number] Scotty Marsh Notes Date Note Type Note Provider Name and Address Organization Details Recorded Time 03/30/2025 text/html Pt was recently hospitalized for [...] and with adult undergarments. Terrance Leiva MD [address] [place], [phone], [facility], LMelonieLMelonieCMelonie 03/30/2025 12:42:59
--- OUTSIDE RECORDS SUMMARY | 2025-05-15 19:00 | XMS_ITS | Continuity of Care Document ---
Author Organization [facility] [place], [place], [facility] ([facility]) Address [address] [place] [address] Assessment No assessment recorded. Plan of Treatment Reminders Order Date Submit Date Provider Last Modified By Organization Details Last Modified Time Details Appointments OFFICE VISIT 15 2025 11:00A M Terrance Leiva MD Not available Not available Not available Lab None recorded . Referral None recorded . Procedures None recorded . Surgeries None recorded . Imaging XR, wrist, 3 or more view 2024 025 [email or web address] [facility], [address] [place], [address], 05/04/2025 14:10:11 Medication Orders None recorded . Patient TargetsNo targets recorded. Patient InstructionsNo instructions recorded. Reason for Referral None Reported. Results Created Date Observation Date Name Description Value Unit Range Abnormal Flag Note LastModifiedBy Organization Detail LastModifiedTime 05/04/20 25 05/04/2025 XR, wrist , 3 or more view No observ ation record ed. [facility], [place], operated by [facility] [address] [place], [address], 05/05/2025 11:57:14 Result Notes None recorded. Problems Name Problem SNOMED Code Status Onset Date Resolution Date Notes Provider Name and Address Organization Details Recorded Time History of malignant neoplasm of prostate 401297725 Active 2024 [facility] 14:[facility]:54 Alzheimer's disease 54747024 Active 2024 Eugenie Whaley null, [facility] 5 14:09:17 Hypercholes terolemia 95705932 Active 2024 Eugenie Whaley null, [facility] 5 14:10:32 Bilateral degeneratio n of macula 1690376182958 9100 Active 2024 Eugenie Whaley null, [facility] 5 14:11:39 Essential hypertensio n 19758258 Active 2024 Eugenie Whaley null, [facility] 14:12:03 Hypothyroid is 98800280 Active 2024 Eugenie Whaley null, [facility] 14:12:55 History of non-ST segment elevation myocardial infarction 610018619 Active 2024 FERMÍN DIAZ null, [facility] 5 09:26:10 Insulin treated type 2 diabetes mellitus 170475394 Active 2024 FERMÍN DIAZ null, [facility] 5 08:24:22 Dementia 23523074 Active 2024 FERMÍN DIAZ null, [facility] 14:20:04 Primary degenerativ e dementia of the Alzheimer type, senile onset 423341049 Active 2024 Terrance Leiva MD [address] [place] [address], [phone], [facility] 12:38:46 Postoperati ve urinary incontinenc e 4815054554 Active 2024 Terrance Leiva MD [address] [place] [address], [phone], [facility] 12:40:59 Problem Notes None recorded. Procedures Surgical History Date Name Laterality Status Provider Name and Address Organization Details Recorded Time 01/29/20 25 cystoscopy completed FERMÍN EMILY [facility] 01/31/2025 14:34:17 06/22/[address] [facility] 12/12/2024 14:24:[address] [facility] 12/12/2024 14:24:[address] [facility] 12/12/2024 14:24:53 excision of malignant neoplasm completed [facility] 12/12/2024 14:25:26 Imaging Results None recorded. Procedure Notes None recorded. Medical Equipment None Reported. Allergies Allergen ID Allergen Name Allergen Category Reaction Reaction Severity Criticality Documentation Date Start Date Code Code System Note Provider Name and Address Organization Details Recorded Time 87713 Claritin- D medicatio n Not available Not available Not available 12/08/2024 MARIA DEL CARMEN mancera [facility] 16:44:59 Medications Name Sig Start [...] Updated DateTime 5 173.99 cm 23.5 kg/m2 57369 g 97.8 [degF] 70 /min 96 % 132/62 mm[Hg] FERMÍN DIAZ [facility] 5 13:24:39 Social History Question Answer Notes LastModified by Organizat ion Details LastModified Time Tobacco Smoking Status Never Smoker MARIA DEL CARMEN mancera [facility] 12/08/2024 16:48:19 What Was The Date Of Your Most Recent Tobacco Screening? 02/10/2025 [email or web address] Information not available 02/10/2025 Sex: Unknown Functional Status Question Answer Note LastModified by Organizat ion Details LastModified Time Do you use any illicit or recreational drugs? No Information not available 12/12/2024 Do you or have you ever used any other forms of tobacco or nicotine? No [email or web address] Information not available 02/10/2025 What is your level of alcohol consumption? None Information not available 12/12/2024 Do you or have you ever used any nicotine-free cigarettes, vape, or chewing tobacco? No [email or web address] Information not available 02/10/2025 Mental Status None recorded. Family History Nothing Reported. Medical History No medical history recorded. Immunizations Vaccine Type Date Status Note Provider Nam e and Address Organization Details Recorded Time COVID-19, mRNA, LNP-S, PF, 30 mcg/0.3 mL dose 1 completed Not Available [facility] 05/04/2025 12:49:38 COVID-19, mRNA, LNP-S, PF, 30 mcg/0.3 mL dose 1 completed Not Available [facility] 05/04/2025 12:49:38 COVID-19, mRNA, LNP-S, PF, 30 mcg/0.3 mL dose 1 completed Not Available [facility] 05/04/2025 12:49:38 Influenza, split virus, trivalent, preservative 2 completed Not Available [facility] 05/04/2025 12:49:38 Influenza, split virus, trivalent, preservative 3 completed Not Available [facility] 05/04/2025 12:49:38 Past Encounters Encounter ID Performer Location Encounter Start Date Encounter Closed Date Diagnosis/Indication Diagnosis SNOMED-CT Code Diagnosis ICD10 Code Diagnosis IMO Codes Diagnosis Note [id number] Terrance Leiva MD [facility] ([facility]) [address] [place] [address] 05/04/2025 12:49:24 05/05/2025 09:10:44 Sprain of left wrist [id number] S63.592A 0614979515 Impacted c erumen of bilateral ears 5761283093 375660 H61.23 887540 Health Concerns Section Related Observation LastModified by Organization Detai ls LastModified Time None Recorded Concern Status LastModified by Organization Details LastModified Time None Recorded Payers Encounter Date Sequence Insurance Name Policy Number Policy Burgos Covered Member ID Burgos Member ID Guarantor Name 05/04/2025 1 [place]ICARE [place]: [place] Scotty Marsh [id number] Scotty Marsh 05/04/2025 2 FOR LIFE ( - MEDICARE SUPPLEMENT) Scotty Marsh [id number] Scotty Marsh Notes Date Note Type Note Provider Name and Address Organization Details Recorded Time 05/04/2025 text/html Joint PainReport ed by PatientHPIFor [...] will let him start. Terrance Leiva MD [address] [place] [address], [phone], [facility], [place] 05/04/2025 13:45:49
--- OUTSIDE RECORDS SUMMARY | 2025-05-15 19:00 | XMS_ITS | Clinical Summary ---
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
--- OUTSIDE RECORDS SUMMARY | 2025-05-15 19:00 | XMS_ITS | Encounter Summary ---
Author Organization [facility] Address [address] [place] [address] Care Team Providers Care Litigation Associate Name Role Phone Unavailable Primary Care Provider Unavailabl e Encounter Details Date Type Department Care Team (Late st Contact Info) Description 03/04/2007 Outpatient Historical [facility] 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
[2025-05-15 19:11] LABS: Hematocrit 46.6 % (37-53); Hemoglobin 14.50 g/dL (11.27-16.99); Mean Corpuscular HGB Conc 31.1 g/dL (30-55); Mean Corpuscular Hemoglobin 25.8 pg (27-33); Mean Corpuscular Volume 82.9 fl (82-101); Nucleated Red Blood Cells % 0 %; Platelet Count 178 10^3/cmm (157-399); Red Blood Count 5.62 10^6/uL (3.85-5.65); White Blood Count 6.97 10^3/uL (3.29-11.43)
--- NOTE | 2025-05-15 19:18 | W.ED.RECABL ---
HPI - Recheck/Abnormal Lab/Rx General: Chief Complaint: Recheck/Abnormal Lab/Rx Stated Complaint: hypoglycemia Time Seen by Provider: 05/15/25 18:55 Source: patient Mode of arrival: ambulatory Limitations: no limitations History of Present Illness: 89-year-old male has a history of type 2 diabetes and also dementia. Per family and EMS patient been walking the kitchen had a syncopal event passed out and was unresponsive. Per family his Dexcom said his glucose was 60s EMS state when they checked it was in the 140s but they did give him D10 and route. Patient is currently awake he is able to tell me his name he is at his baseline. He has had some diarrhea he denies any pain anywhere afebrile here. Related Data Home Medications ?Medication ?Instructions ?Recorded ?Confirmed atorvastatin 20 mg tablet (Lipitor) 20 mg PO BEDTIME 07/12/19 04/28/25 lisinopril 20 mg tablet 20 mg PO DAILY PRN Blood Pressure 06/06/20 04/28/25 sertraline 50 mg tablet (Zoloft) 50 mg PO DAILY 08/20/20 04/28/25 levothyroxine 100 mcg tablet 100 mcg PO DAILY 11/15/20 04/28/25 (Synthroid) vit C 250 mg-vit E 90 mg-zinc 40 1 tab PO BID 01/03/25 04/28/25 mg-copper 1 in-vjmqcy-gcolhl capsule (PreserVision AREDS-2) brexpiprazole 1 mg tablet (Rexulti) mg PO 02/13/25 04/28/25 memantine 5 mg tablet (Namenda) 5 mg PO BID 02/13/25 04/28/25 Previous Rx's ?Medication ?Instructions ?Recorded blood-glucose sensor ([employer] #2 ea 02/13/25 Simin 2 Plus Sensor device) insulin glargine 100 unit/mL (3 50 unit (0.5 mL) SUBCUT QAM #45 mL 05/04/25 mL) subcutaneous pen (Lantus Solostar U-100 Insulin) insulin lispro 100 unit/mL 20 unit (0.2 mL) SUBCUT TID see 05/04/25 subcutaneous pen ([facility]90 mL (U-100) Insulin) Allergies Allergy/AdvReac Type Severity Reaction Status Date / Time loratadine (From Claritin) Allergy NA Verified 04/19/25 08:37 [facility] ED PFS: Medical History (Updated 05/15/25 @ 20:[address] MD) Hyperlipemia, mixed History of prostate cancer Vertigo Sleep apnea Urinary anastomotic stricture Surgical History S/P trigger finger release Date of procedure: March 15, 2024 Procedure done: Release left ring trigger finger. Surgeon: Apurva Carpio MD History of back surgery S/P tonsillectomy S/P vasectomy History of prostatectomy Family History Family/Other CAD (coronary artery disease) Father , in his 70's Alzheimer disease Mother , in her 90's CAD (coronary artery disease) Social History Smoking and tobacco/nicotine status: never used tobacco/nicotine Alcohol intake: never Substance/Drug Use: never Marital status: Current occupational status: retired Physical Exam Const: COMMON NORMALS: alert; negative for patient oriented x3 ORIENTATION/CONSCIOUSNESS: Yes oriented to person; not oriented to place and not oriented to time HENMT: COMMON NORMALS: normocephalic and atraumatic HEAD & SCALP: normocephalic and atraumatic Eye: COMMON NORMALS: Equal, round and reactive pupils present and EOMs intact bilaterally PUPIL: Yes Equal, round and reactive pupils present Neck/C-Spine: COMMON NORMALS: full ROM and supple Chest: COMMONS NORMALS: normal inspection of the chest and normal palpation of entire chest wall Resp: COMMON NORMALS: normal respiratory effort, No retractions, No use of accessory muscles and clear to auscultation bilaterally AUSCULTATION: clear to auscultation bilaterally Cardio: COMMON NORMALS: regular rate, regular rhythm and No murmurs present (Cardio) RATE: regular rate RHYTHM: regular rhythm GI: COMMON NORMALS: Normal to inspection, nondistended, normoactive bowel sounds present, Soft to palpation, non-tender and no masses PALPATION: Yes Soft to palpation Extremity: COMMON NORMALS: normal to inspection and full ROM Neuro: COMMON NORMALS: moves all extremities and no focal motor deficits; negative for patient oriented x3 SENSORIUM/ORIENTATION: Yes alert, Yes oriented to person, No oriented to place and No oriented to time Psych: COMMON NORMALS: Normal thought process present and cooperative; negative for mental status grossly normal THOUGHT PROCESS: Normal thought process present Skin: COMMON NORMALS: no rashes or lesions noted and no wounds GENERAL SKIN EXAM: no rashes or lesions noted Course Vital Signs: Vital signs: Vital Signs Temperature 99.2 F 05/15/25 18:51 Pulse Rate 87 05/15/25 20:02 Respiratory Rate 20 H 05/15/25 18:51 Blood Pressure 146/76 05/15/25 20:02 Pulse Oximetry 97 05/15/25 20:02 Oxygen Delivery Me thod Room Air 05/15/25 20:02 MDM - Recheck/Abnormal Lab/Rx Medical Decision Making Patient presents here with a syncopal event. Differential includes arrhythmia, intracerebral hemorrhage, CVA. Patient has no signs of the above head CT here was normal no signs of hemorrhage she has no signs of a stroke here. Heart rate here has been normal his EKG was interpreted by me showed normal sinus rhythm heart rate [address] elevation QRS 96 QTc 404. Chest x-ray shows no signs of pneumonia. Patient now is awake he is answering most questions appropriately does have a history of dementia states that he does feel weak. Labs here showed no significant abnormalities. I did speak to the hospitalist will admit at this time for the syncopal event. Medical Records I reviewed the patient's medical records. Lab Data I reviewed the patient's lab results. 05/15/25 18:28 05/15/25 18:[address] 05/15/25 19:00 IMPRESSION: No acute intracranial abnormality. Chest X-Ray 05/15/25 19:39 IMPRESSION: No definite acute infiltrate or effusion. Laboratory Results WBC 6.97 10^3/uL (3.29-11.43) 05/15/25 18: RBC 5.62 10^6/uL (3.85-5.65) 05/15/25 18:28 Hgb 14.50 g/dL (11.27-16.99) 05/15/25 18: Hct 46.6 % (37-53) 05/15/25 18: MCV 82.9 fl (82-101) 05/15/25 18:28 MCH 25.8 pg (27-33) L 05/15/25 18: MCHC 31.1 g/dL (30-55) 05/15/25 18: RDW 17.4 % (12.1-15.1) H 05/15/25 18: Plt Count 178 10^3/cmm (157-399) 05/15/25 18: MPV 10.1 fL (7.4-10.4) 05/15/25 18: Neut % (Auto) 75.9 % 05/15/25 18: Lymph % (Auto) 17.2 % 05/15/25 18: [place] % (Auto) 4.9 % 05/15/25 18: Eos % (Auto) 1.6 % 05/15/25 18: Baso % (Auto) 0.1 % 05/15/25 18: Neut # (Auto) 5.29 10^3/uL (1.8-7.7) 05/15/25 18: Lymph # (Auto) 1.2 10^3/uL (0.8-4.8) 05/15/25 18: [place] # (Auto) 0.3 10^3/uL (0.2-0.9) 05/15/25 18: Eos # (Auto) 0.1 10^3/uL (0.0-0.8) 05/15/25 18: Baso # (Auto) 0.0 10^3/uL (0.0-0.1) 05/15/25 18: Nucleated RBC % (auto) 0 % 05/15/25 18: Nucleated RBCs # 0.0 /100WBC 05/15/25 18: Sodium 141 mmol/L (136-145) 05/15/25 18: Potassium 3.9 mmol/L (3.5-5.1) 05/15/25 18: Chloride 103 mmol/L (98-107) 05/15/25 18: Carbon Dioxide 25 mmol/L (22-29) 05/15/25 18: Anion Gap 16.9 (5-19) 05/15/25 18: BUN 25 mg/dL (8-23) H 05/15/25 18: Creatinine 0.9 mg/dL (0.7-1.2) 05/15/25 18:28 GFR Calculation Not Reportable 05/15/25 18:28 Glucose 123 mg/dL (65-115) H 05/15/25 18:28 POC Glucose 165 mg/dL (70-110) H 05/15/25 18:54 Calculated Osmolality 298 mOsm/kg (285-295) H 05/15/25 18:28 Calcium 9.3 mg/dL (8.5-10.5) 05/15/25 18:28 Total Bilirubin 0.3 mg/dL (0.15-1.2) 05/15/25 18:28 AST 15 U/L (0-40) 05/15/25 18:28 ALT 19 U/L (0-41) 05/15/25 18:28 Alkaline Phosphatase 112 U/L (40-130) 05/15/25 18:28 Total Protein 7.4 g/dL (6.6-8.7) 05/15/25 18:28 Albumin 4.4 g/dL (3.5-5.2) 05/15/25 18:28 Globulin 3.0 g/dL (1.3-4.6) 05/15/25 18:28 TSH 3.61 uIU/mL (0.27-4.20) 05/15/25 18:28 All radiology interpretation(s) finalized by discharge EKG Data EKG 1: I personally reviewed and interpreted this EKG as follows: EKG interpretation date: 05/15/25 EKG interpretation time: 19:59 Interpretation: nsr hr [address] elevation qrs 96 qtc 404 Discharge Plan Discharge Patient Disposition: Admitted As Inpatient Clinical Impression: Syncope, Generalized weakness Condition: Stable Coding Level of Care Code ED Service Aide for Chg Baldev
[2025-05-15 19:32] LABS: Alanine Aminotransferase 19 U/L (0-41); Albumin Level 4.4 g/dL (3.5-5.2); Alkaline Phosphatase 112 U/L (40-130); Aspartate Amino Transferase 15 U/L (0-40); Blood Urea Nitrogen 25 mg/dL (8-23); Calcium 9.3 mg/dL (8.5-10.5); Carbon Dioxide 25 mmol/L (22-29); Chloride 103 mmol/L (98-107); Creatinine Clr Calc Pharmacy 53.8971; Globulin 3.0 g/dL (1.3-4.6); Glucose 123 mg/dL (65-115); Osmolality Calculated 298 mOsm/kg (285-295); Sodium 141 mmol/L (136-145); Thyroid Stimulating Hormone 3.61 uIU/mL (0.27-4.20); Total Protein 7.4 g/dL (6.6-8.7)
--- NOTE | 2025-05-15 19:39 | XRR_ITS ---
PROCEDURE INFORMATION: Exam: XR Chest Exam date and time: 05/15/2025 7:39 PM Age: 89 years old Clinical indication: Other: AMS; Prior surgery; Surgery date: 6+ months; Surgery type: Cardiac stents TECHNIQUE: Imaging protocol: Radiologic exam of the chest. Views: 1 view. COMPARISON: CR XR chest 2V* [id number] 04/18/2025 1:51 PM FINDINGS: Lungs: Unremarkable. No consolidation. Pleural spaces: Unremarkable. No pleural effusion. No pneumothorax. Heart/Mediastinum: Unremarkable. No cardiomegaly. Vasculature: Aortic atherosclerosis. Bones/joints: Mild degenerative changes of the AC joints. XR/XR chest 1V portable [id number] IMPRESSION: No definite acute infiltrate or effusion.
[2025-05-15 19:43] VITALS: BP 110/56; PULSE 84; O2SAT 97
[2025-05-15 19:43] LABS: Anion Gap 16.9 (5-19); Potassium 3.9 mmol/L (3.5-5.1)
[2025-05-15 20:02] VITALS: BP 146/76; PULSE 87; O2SAT 97
[2025-05-15 20:11] LABS: C.Diff PCR (Lab) NEGATIVE (Negative)
[2025-05-15 20:21] LABS: Glucose Urine UA Negative (Normal); Nitrate Urine Negative (Negative); Specific Gravity, Urine 1.021 (1.005-1.030)
[2025-05-15 20:25] LABS: Add Urine Microscopic? YES
[2025-05-15 20:37] LABS: Troponin(5th) Baseline 20 ng/L (0-15)
[2025-05-15 21:05] VITALS: BP 152/75; PULSE 85; O2SAT 91
--- NOTE | 2025-05-15 21:31 | P.HP_ITS ---
Providers/Chief Complaint 2 Admitting Physician: Marquis Mcconnell MD Primary Care Provider: Terrance Leiva MD Chief Complaint: hypoglycemia History of Present Illness Scotty Marsh is a 89 year old male with history significant for coronary artery disease status post stenting, Alzheimer's dementia, and type 2 diabetes mellitus, who presents today after a syncopal episode. On the day of presentation, patient stood up and was seem to be Dx for a short distance. It appeared that he was about to syncopize as described to me and the patient was lowered to a chair when his eyes closed, head tilted down, and he began to drool. He also had an episode of fecal incontinence at the time. Family present tells me that he was unresponsive to verbal or tactile stimuli at the time. Spouse mentions that his glucose monitor was showing 60 at the time. EMS did arrive and administered dextrose and their glucose reading was in the 150s.It was not clear if this was before or after dextrose administration that day, 25 units of glargine was administered as well as 10 units of short acting insulin per spouse. Patient diet has seen less snacking to note of. Spouse mentions the prescribed dosage is 50u of long acting and 20u of short acting insulin TID. I am told this has never happened to him before. BP readings have not been tracked at home. Though the patient has dementia, family feel the patient will inform if he is feeling unwell. Medications/Allergies Home Medications ?Medication ?Instructions ?Recorded ?Confirmed ?Last Taken ?Type atorvastatin 20 mg tablet (Lipitor) 20 mg PO BEDTIME 0 07/12/19 04/28/25 01/02/25 History lisinopril 20 mg tablet 20 mg PO DAILY PRN Blood Pre ssure 06/06/20 04/28/25 01/02/25 History sertraline 50 mg tablet (Zoloft) 50 mg PO DAILY 04/28/25 01/02/25 History levothyroxine 100 mcg tablet 100 mcg PO DAILY 11/15/20 04/28/25 01/02/25 History (Synthroid) vit C 250 mg-vit E 90 mg-zinc 40 1 tab PO BID 01/03/25 04/28/25 01/02/25 History mg-copper 1 gs-nhnrki-qkbdiq capsule (PreserVision AREDS-2) blood-glucose sensor ([employer] #2 ea 02/13/25 5 Unknown Rx Simin 2 Plus Sensor device) brexpiprazole 1 mg tablet (Rexulti) mg PO 02/13/2501/13 Unknown History memantine 5 mg tablet (Namenda) 5 mg PO BID 02/13/25 1 06/28/24 Unknown History insulin glargine 100 unit/mL (3 50 unit (0.5 mL) SUBCU T QAM #45 mL 05/04/25 Unknown Rx mL) subcutaneous pen (Lantus Solostar U-100 Insulin) insulin lispro 100 unit/mL 20 unit (0.2 mL) SUBCUT TID see 05/04/25 Unknown Rx subcutaneous pen (Humalog [employer] pharmacy comments #9 0 mL (U-100) Insulin) Allergies Allergy/AdvReac Type Severity Reaction Status Date / Time loratadine (From Claritin) Allergy NA Verified 04/19/25 08:37 PFSH Acute 2 PFSH: Medical History (Updated 05/15/25 @ 21:43 by Marquis Mcconnell MD) Hyperlipemia, mixed History of prostate cancer Vertigo Sleep apnea Urinary anastomotic stricture Surgical History S/P trigger finger release Date of procedure: March 15, 2024 Procedure done: Release left ring trigger finger. Surgeon: Apurva Carpio MD History of back surgery S/P tonsillectomy S/P vasectomy History of prostatectomy Family History Family/Other CAD (coronary artery disease) Father , in his 70's Alzheimer disease Mother , in her 90's CAD (coronary artery disease) Social History Smoking and tobacco/nicotine status: never used tobacco/nicotine Alcohol intake: never Substance/Drug Use: never Marital status: Current occupational status: retired Vitals/I&O/Wt Last Vital Signs Temp 99.2 F 05/15/25 18:51 Pulse 85 05/15/25 21:05 Resp 20 H 05/15/25 18:51 BP 152/75 05/15/25 21:05 Pulse Ox 91 05/15/25 21:05 O2 Del Method Room Air 05/15/25 20:02 Weight last 48 hrs Weight 62.142 kg Physical Exam 2 Narrative: General: Alert, patient seen laying in bed appearing comfortable at this time. HEENT: Normocephalic, atraumatic, EOMI, breathing room air Cardio: Regular rate rhythm, normal S1-S2, Respiratory: Clear to auscultation bilaterally no wheezes or rhonchi GI: Abdomen soft, nontender, bowel sounds + Extremities: No edema bilateral lower extremity Data 05/15/25 18:28 05/15/25 18:28 Micro: Microbiology 05/15/25 19:16 Stool Lactoferrin - Final Stool Occult Blood (FIT) - Final A&P Assessment and plan 1. Syncope, unspecified syncope type: - Suspect his issue is related to hypoglycemia but will not exclude cardiac etiology - Check echo - Check orthostatic vital signs in the AM 2. Alzheimer's dementia, unspecified dementia severity, unspecified timing of dementia onset, unspecified whether behavioral, psychotic, or mood disturbance or anxiety: - Continue Namenda 3. Type 2 diabetes mellitus with hyperglycemia, with long-term current use of insulin: - Hold long acting insulin tonight - Place on low SSI - Routine POC glucose checks 4. Hypoglycemia: - Plan as above Plan: - Continue his other home medications for his other comorbin conditions PDMP PDMP Reviewed: Not Reviewed Attestations 2 Medical Necessity Statement*: Patient is anticipated to require less than two midnights of inpatient hospital care for evaluation and management of syncope Coding Level of Care Code Acute Code for [facility] Fwd Diagnoses Syncope, unspecified syncope type R55 Syncope type: unspecified Alzheimer's dementia, unspecified dementia severity, unspecified timing of dementia onset, unspecified whether behavioral, psychotic, or mood disturbance or anxiety G30.9; F02.80 Alzheimer's disease onset: unspecified onset Dementia severity: unspecified severity Dementia behavioral or psychological symptom: unspecified whether behavioral, psychotic, or mood disturbance or anxiety Type 2 diabetes mellitus with hyperglycemia, with long-term current use of insulin E11.65; Z79.4 Diabetes mellitus adjunct faculty for medical terminology insulin use: with m[facility]p use Diabetes mellitus complication status: with hyperglycemia Hypoglycemia E16.2
[2025-05-15 21:41] LABS: Troponin 5 2HR 17.62 ng/L (0-15)
--- NOTE | 2025-05-15 21:41 | USCV_ITS ---
Scotty Marsh Age: 89 Gender: M : 1935 Exam Date: 05/15/2025 22:04 Ordering Phys: Marquis Mcconnell MD Technologist: ISABEL Exam Location: [facility] [place] Indication: syncope, history of CAD s/p PCI, Alzheimer's Dementia, DM2 BP: 122 / 63 HR: 83 Rhythm: Sinus Technical Quality: Adequate MEASUREMENTS (Male / Female) Normal Values 2D ECHO LV Diastolic Diameter PLAX 3.7 cm 4.2 - 5.9 / 3.9 - 5.3 cm IVS Diastolic Thickness 1.0 cm 0.6 - 1.0 / 0.6 - 0.9 cm IVS Systolic Thickness 1.2 cm LVPW Diastolic Thickness 1.3 cm 0.6 - 1.0 / 0.6 - 0.9 cm LVPW Systolic Thickness 1.5 cm LVOT Diameter 1.6 cm LV Ejection Fraction 2D Teich 58.6 % LV Ejection Fraction MOD 4C 64.1 % LV Ejection Fraction MOD 2C 55.5 % LV Ejection Fraction 2C AL 61.5 % LA Diameter 3.2 cm Aorta at Sinotubular Diameter 2.9 cm IVC Diameter 1.3 cm M-MODE LA Ao Ratio MM 0.9 AV Cusp Separation MM 2.4 cm DOPPLER AV Peak Velocity 149.0 cm/s LVOT Peak Velocity 151.0 cm/s AV Area Cont Eq vti 2.2 cm squared AV Area Cont Eq pk 2.0 cm squared MV Peak Velocity 128.0 cm/s MV Area PHT 2.5 cm squared Mitral E to A Ratio 0.8 TV Peak E Velocity 64.0 cm/s PV Peak Velocity 111.0 cm/s FINDINGS Left Ventricle Normal left ventricular size, systolic function and wall thickness, with no regional wall motion abnormalities. Estimated LVEF normal 65%. Right Ventricle Normal right ventricular size and systolic function. Right Atrium Normal right atrial size. Left Atrium Normal left atrial size. IA Septum Normal interatrial septum. Mitral Valve Mildly thickened mitral valve. There is a trace mitral regurgitation Aortic Valve Thickened aortic valve. No aortic stenosis. Tricuspid Valve Thickened tricuspid valve. Trace tricuspid regurgitation. Pulmonic Valve Pulmonic valve not well visualized. Trace pulmonary valve regurgitation. Pericardium Trace pericardial effusion more over anterior surface. Aorta Normal size aortic root and proximal ascending aorta. IVC Normal inferior vena cava. CONCLUSIONS Sinus tachycardia during the study Normal LV size and LV systolic function. Estimated LVEF normal 65%. Normal RV with normal RV systolic function. No significant valvular abnormality noted. Normal right heart and pulmonary pressures There is pleural effusion noted during the study. Angel Smith MD (Electronically Signed) Final Date: 16 May 2025 08:38 S
[2025-05-15 21:42] LABS: Troponin 5 2HR Delta -2.38 ABS# (0-10)
[2025-05-15 21:47] VITALS: BP 122/63; PULSE 82; RESP 17; TEMP 37.1; O2SAT 97
[2025-05-15] MEDS: ATORVASTATIN 20 MG TABLET PO (22:03)
--- OUTSIDE RECORDS SUMMARY | 2025-05-15 23:35 | XMS_ITS | Encounter Summary ---
Author Organization [facility] Address [address] [place] [address] Care Team Providers Care Cleaner And Dyer Name Role Phone Unavailable Primary Care Provider Unavailabl e Encounter Details Date Type Department Care Team (Late st Contact Info) Description 05/22/2004 Outpatient Historical [facility] [address] [place] [phone] Mick Salazar S, OD [address] [place] [phone] DIABETES MELLITUS TYPE II-UNCOMPL ([facility]) (Primary Dx); SENILE CATARACT NOS Social History Tobacco Use Types Packs/Day Years Used Date Smoking Tobacco: Never Assessed Sex and Gender Information Value Date Recorded Sex Assigned at Not on file 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
--- OUTSIDE RECORDS SUMMARY | 2025-05-15 23:35 | XMS_ITS | Clinical Summary ---
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
--- OUTSIDE RECORDS SUMMARY | 2025-05-15 23:36 | XMS_ITS | Encounter Summary ---
Author Organization [facility] Address [address] [place] [address] Care Team Providers Care Specialty Sales Consultant Name Role Phone Unavailable Primary Care Provider Unavailabl e Encounter Details Date Type Department Care Team (Late st Contact Info) Description 03/04/2007 Outpatient Historical [facility] 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
--- OUTSIDE RECORDS SUMMARY | 2025-05-15 23:36 | XMS_ITS | Clinical Summary ---
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
[2025-05-16 01:45] LABS: Hematocrit 38.8 % (37-53); Hemoglobin 12.30 g/dL (11.27-16.99); Mean Corpuscular HGB Conc 31.7 g/dL (30-55); Mean Corpuscular Hemoglobin 25.9 pg (27-33); Mean Corpuscular Volume 81.7 fl (82-101); Nucleated Red Blood Cells % 0 %; Platelet Count 135 10^3/cmm (157-399); Red Blood Count 4.75 10^6/uL (3.85-5.65); White Blood Count 7.17 10^3/uL (3.29-11.43)
[2025-05-16 02:02] LABS: Troponin 5 6HR 24.01 ng/L (0-15); Troponin 5 6HR Delta 4.01 ng/L (0-12)
[2025-05-16 02:03] LABS: Anion Gap 15.1 (5-19); Blood Urea Nitrogen 27 mg/dL (8-23); Calcium 8.5 mg/dL (8.5-10.5); Carbon Dioxide 26 mmol/L (22-29); Chloride 103 mmol/L (98-107); Glucose 160 mg/dL (65-115); Magnesium 1.8 mg/dL (1.7-2.3); Osmolality Calculated 299 mOsm/kg (285-295); Potassium 4.1 mmol/L (3.5-5.1); Sodium 140 mmol/L (136-145)
--- NOTE | 2025-05-16 06:40 | ECG_ITS ---
[facility] [place] [facility] Date: 2025-05-16 Pat Name: Scotty Marsh Department: Room: 254 Gender: Male Director Manufacturing Engineering: SHILPI: 1935 Requested By: Edilberto Lane Order Number: [id number] Olivier MD: Angel Smith M.D. Measurements Intervals [place] Rate: 68 P: 32 CA: 154 QRS: 67 QRSD: 104 T: 77 QT: 428 QTc: 456 Interpretive Statements SINUS RHYTHM WITH OCCASIONAL SUPRAVENTRICULAR PREMATURE COMPLEXES Compared to ECG 05/15/2025 19:59:37 Supraventricular rhythm no longer present Electronically Signed On 05-16-2025 10:16:57 EVENT EXECUTIVE by Angel Smith M.D. [email or web address]
[2025-05-16 07:41] VITALS: BP 122/63; PULSE 66; RESP 16; TEMP 36.9; O2SAT 92
[2025-05-16] MEDS: cefTRIAXone 1,000 mg SDV 1000 MG IVP (08:50)
--- NOTE | 2025-05-16 09:34 | PC.PHAR ---
Phoned [facility] for most current med list. There are discrepancies on a few of them. Amlodipine 5mg daily last fill 12/30/24 90ds does not show as active but has not been dc'd. Rexulti is 2mg daily, Sertraline is 100mg daily, Lispro is 20 units tid-no sliding scale, Lantus is 50 units qam. Atorvastatin 20 mg qpm not filled since 12/09/24 90ds. Per Bianca at [facility]
--- NOTE | 2025-05-16 10:42 | PC.CHAP ---
Pastoral Care Encounter/Spiritual Assessment Type of Contact [] Declined media director visit [] Patient/Family/Request visit [] Outpatient visit [] Follow-up visit [] Physician referral [] Code/Alert [x] Routine visit [] Staff referral [] Actively dying [] Patient sleeping [x] Family support [] [] Out of room [] Palliative care [] [] Receiving care in room [] Pre-surgical visit [] Trauma [] Long length of stay [] ICU visit [] Other: Relational/Emotional Strength [x] Patient feels connected with others/family/visitors/staff [] Distress [] Loneliness/isolation [] Abandonment Spirituality of Patient [x] Person of Kay [] Attends Nondenominational of their Kay [x] Believes in Prayer [] Reads Bible or Judaism materials [] There are Spiritual issues to be addressed Sales Manager Prearranged Funerals Interventions [x] Prayer [x] Active listening [] Non-anxious presence [x Spiritual/emotional support [] Crisis/trauma care [] Spiritual counseling [] Bereavement support [] Provided bereavement packet [] Provided Bible/devotional materials [] Provided toy/stuffed animal, coloring book to patient or family member [] Provided Communion [] Anointing/[place] [] Salvation [x] Completed spiritual assessment [] Other: Impact on Illness or Injury [] Angry [] Fearful [] Anxious [] Often cries [] Exhaustion [] Unable to work [] Unable to attend orthodox [] Unable to walk/stand [] Unable to read [] Unable to drive [] Unable to eat/drink [] Unable to sleep [] Unable to be with family [] Patient intubated [] Other: Summary Time spent with patient 5 min
--- NOTE | 2025-05-16 11:23 | USR_ITS ---
PROCEDURE INFORMATION: Exam: US Duplex Bilateral Extracranial Arteries; Complete; Carotid Arteries Exam date and time: 05/16/2025 4:03 PM Age: 89 years old Clinical indication: Altered mental status/memory loss; Additional info: AMS TECHNIQUE: Imaging protocol: Real-time duplex ultrasound scan of the bilateral extracranial arteries combining rebolledo scale, color Doppler and spectral waveform analysis with image documentation. Complete exam. Exam focused on the carotid arteries. COMPARISON: CT head wo con* [id number] 05/15/2025 7:20 PM FINDINGS: Right common carotid artery: Common carotid artery plaque extending to the bulb. No occlusion or significant stenosis. Waveforms are normal. Distal common carotid artery peak systolic velocity 62.4 cm. Right internal carotid artery: Plaque proximally and near the bulb. No occlusion or significant stenosis. Waveforms are normal. Peak systolic velocity is 67.3 cm/sec. Right ICA/CCA ratio: Within normal limits. Right external carotid artery: No significant stenosis in the origin. Right vertebral artery: Antegrade flow. Left common carotid artery: Common carotid artery plaque extending to the carotid bulb. No occlusion or significant stenosis. Distal common carotid artery peak systolic velocity is 61.5 cm/sec. Waveforms are normal. Left internal carotid artery: Plaque proximally and near the bulb. No occlusion or significant stenosis. Waveforms are normal. Peak systolic velocity is 55.3 cm/sec. Left ICA/CCA ratio: Within normal limits. Left external carotid artery: No significant stenosis in the origin. Left vertebral artery: Antegrade flow. US/CV carotid duplex BI* [id number] IMPRESSION: Less than 50% ICA stenosis bilaterally. REFERENCES: SRU CRITERIA. The degree of internal carotid artery stenosis is based on criteria defined by the Society of Radiologists in Ultrasound (SRU). Normal is no stenosis. Mild is less than 50% stenosis. Moderate is 50-69% stenosis. Severe is greater than 69% stenosis to near occlusion. Near occlusion is a markedly narrowed lumen. Total occlusion is no detectable patent lumen. Asya Franco, et al. Carotid Artery Stenosis: Rebolledo-Scale and Doppler US Diagnosis-Society of Radiologists in Ultrasound Consensus Conference. Radiology 2003; 229:340-346.
[2025-05-16 11:24] VITALS: BP 118/65; BP 130/73; BP 150/66; BP 153/73; PULSE 70; PULSE 73; PULSE 74; PULSE 88; RESP 18; TEMP 36.6; O2SAT 93
[2025-05-16 15:32] VITALS: BP 136/70; PULSE 72; RESP 16; TEMP 36.8; O2SAT 93
--- NOTE | 2025-05-16 17:25 | PM.DCS ---
Discharge Providers Date of Admission: 05/15/25 20:09 Date of Discharge: May 16, 2025 Attending Provider at Admission: Marquis Mcconnell MD Attending Provider at Discharge: Moe Cruz MD Primary Care Provider: Terrance Leiva MD Diagnoses at Discharge Discharge Diagnosis 1. Syncope, unspecified syncope type: 2. Alzheimer's dementia, unspecified dementia severity, unspecified timing of dementia onset, unspecified whether behavioral, psychotic, or mood disturbance or anxiety: 3. Type 2 diabetes mellitus with hyperglycemia, with long-term current use of insulin: 4. Hypoglycemia: Reason for Visit Reason for Visit: hypoglycemia Hospital Course Hospital Course this is a 89 y/o M with CAD, alzheimers dementia, type 2 diabetes mellitus who presents to [facility] for syncopal episode Hypoglycemia episode - Reported blood sugar of 60 upon EMS arrival but when it was rechecked it was 150 - does tell me that about noon time she had given him 25 units of Lantus with 10 units of the sliding scale, with hypoglycemia episode happening at about 6 PM - Likely affect of Lantus and NovoLog - Discussed hypoglycemia protocol - Discussed with and patient to retimed Lantus to early in the morning - Lantus 10 units in the morning, with a low-dose sliding scale - Discussed to not give insulin if he does not eat - Discussed morbidity and mortality associated with hyperglycemia - Patient and voiced understanding, all questions answered - Monitor blood sugars closely - Follow-up with primary care - Patient and are going to change his glucose monitoring device Syncopal episode - Multifactorial - Hypoglycemia - Orthostatic hypotension - UTI - Orthostatic hypotension, - On discharge will discontinue his Norvasc - Will have him follow-up with primary care provider - Discussed that he should ambulate with care, change position with care, - Discussed morbidity and mortality associate with orthostatic hypotension, risk of falls, risk of injury, risk of fractures For syncopal episode - No chest pain complaints - Cardiac echo CONCLUSIONS Sinus tachycardia during the study Normal LV size and LV systolic function. Estimated LVEF normal 65%. Normal RV with normal RV systolic function. No significant valvular abnormality noted. Normal right heart and pulmonary pressures There is pleural effusion noted during the study. Carotid ultrasound US/CV carotid duplex BI* [id number] IMPRESSION: Less than 50% ICA stenosis bilaterally. For UTI, received IV antibiotics in the patient, discharged on oral cefdinir There were reports of atrial fibrillation event according to - EMS who according to reported atrial fibrillation event? - No documentation that I could see about atrial fibrillation event -EKG did not show any atrial fibrillation, telemetry no any atrial fibrillation events - Nonetheless we will discharge him with an event monitor - If any chest pain or palpitations go to the emergency room - Follow-up with cardiology - If any strokelike symptoms to immediately call 911 Physical Exam Const: COMMON NORMALS: no acute distress and patient oriented x3 Eye: COMMON NORMALS: Equal, round and reactive pupils present and EOMs intact bilaterally PUPIL: Yes Equal, round and reactive pupils present Resp: COMMON NORMALS: normal respiratory effort, No retractions, No use of accessory muscles and clear to auscultation bilaterally AUSCULTATION: clear to auscultation bilaterally Cardio: COMMON NORMALS: regular rate, regular rhythm, S1 normal heart sound present and S2 normal heart sound present RATE: regular rate RHYTHM: regular rhythm HEART SOUNDS: S1 normal heart sound present and S2 normal heart sound present GI: COMMON NORMALS: Normal to inspection, nondistended, normoactive bowel sounds present and non-tender Extremity: COMMON NORMALS: no pedal edema Neuro: COMMON NORMALS: patient oriented x3, moves all extremities, no focal motor deficits and no sensory deficits noted Psych: COMMON NORMALS: mental status grossly normal Discharge Data Studies Completed and Pending Completed Studies During Hospitalization Category Date Time Status CT head wo con* [id number] Stat Cat Scan 05/15/25 19:00 Completed CXRP [XR chest 1V portable [id number]] Stat Exams 05/15/25 19:39 Completed CV carotid duplex BI* [id number] Routine Ultrasound 05/16/25 11:23 Completed US echo complete [CV. echo complete* [id number]] Routine Ultrasound 05/15/25 21:41 Completed Pending at discharge Category Date Time Status OVA and Parasites, Conc and PE Routine Lab 05/15/25 19:16 Received Salmonella / Shigella / Campy Routine Lab 05/15/25 19:16 Received Urine Culture Stat Lab 05/15/25 20:13 Received Radiology Impressions Head CT 05/15/25 19:00 IMPRESSION: No acute intracranial abnormality. Chest X-Ray 05/15/25 19:39 IMPRESSION: No definite acute infiltrate or effusion. Carotid Doppler Study 05/16/25 11:23 IMPRESSION: Less than 50% ICA stenosis bilaterally. REFERENCES: SRU CRITERIA. The degree of internal carotid artery stenosis is based on criteria defined by the Society of Radiologists in Ultrasound (SRU). Normal is no stenosis. Mild is less than 50% stenosis. Moderate is 50-69% stenosis. Severe is greater than 69% stenosis to near occlusion. Near occlusion is a markedly narrowed lumen. Total occlusion is no detectable patent lumen. Asya Franco, et al. Carotid Artery Stenosis: Rebolledo-Scale and Doppler US Diagnosis-Society of Radiologists in Ultrasound Consensus Conference. Radiology 2003; 229:340-346. Laboratory Results WBC 7.17 10^3/uL (3.29-11.43) 05/16/25 01: RBC 4.75 10^6/uL (3.85-5.65) 05/16/25 01:25 Hgb 12.30 g/dL (11.27-16.99) 05/16/25 01:25 Hct 38.8 % (37-53) 05/16/25 01:25 MCV 81.7 fl (82-101) L 05/16/25 01:25 MCH 25.9 pg (27-33) L 05/16/25 01:25 MCHC 31.7 g/dL (30-55) 05/16/25 01:25 RDW 17.6 % (12.1-15.1) H 05/16/25 01:25 Plt Count 135 10^3/cmm (157-399) L 05/16/25 01:25 MPV 9.9 fL (7.4-10.4) 05/16/25 01:25 Neut % (Auto) 91.2 % 05/16/25 01:25 Lymph % (Auto) 3.5 % 05/16/25 01:25 Bledsoe % (Auto) 3.5 % 05/16/25 01:25 Eos % (Auto) 1.3 % 05/16/25 01:25 Baso % (Auto) 0.1 % 05/16/25 01:25 Neut # (Auto) 6.54 10^3/uL (1.8-7.7) 05/16/25 01:25 Lymph # (Auto) 0.3 10^3/uL (0.8-4.8) L 05/16/25 01:25 Bledsoe # (Auto) 0.3 10^3/uL (0.2-0.9) 05/16/25 01:25 Eos # (Auto) 0.1 10^3/uL (0.0-0.8) 05/16/25 01:25 Baso # (Auto) 0.0 10^3/uL (0.0-0.1) 05/16/25 01:25 Nucleated RBC % (auto) 0 % 05/16/25 01:25 Nucleated RBCs # 0.0 /100WBC 05/16/25 01:25 Sodium 140 mmol/L (136-145) 05/16/25 01:25 Potassium 4.1 mmol/L (3.5-5.1) 05/16/25 01:25 Chloride 103 mmol/L (98-107) 05/16/25 01:25 Carbon Dioxide 26 mmol/L (22-29) 05/16/25 01:25 Anion Gap 15.1 (5-19) 05/16/25 01:25 BUN 27 mg/dL (8-23) H 05/16/25 01:25 Creatinine 0.9 mg/dL (0.7-1.2) 05/16/25 01:25 GFR Calculation Not Reportable 05/16/25 01:25 Glucose 160 mg/dL (65-115) H 05/16/25 01:25 POC Glucose 229 mg/dL (70-110) H 05/16/25 16:24 Calculated Osmolality 299 mOsm/kg (285-295) H 05/16/25 01:25 Calcium 8.5 mg/dL (8.5-10.5) 05/16/25 01:25 Magnesium 1.8 mg/dL (1.7-2.3) 05/16/25 01:25 Total Bilirubin 0.3 mg/dL (0.15-1.2) 05/15/25 18:28 AST 15 U/L (0-40) 05/15/25 18: ALT 19 U/L (0-41) 05/15/25 18:28 Alkaline Phosphatase 112 U/L (40-130) 05/15/25 18:28 Troponin T Baseline 20 ng/L (0-15) H 05/15/25 18:28 Troponin T 120 Minute 17.62 ng/L (0-15) H 05/15/25 20:53 Delta Troponin T -2.38 ABS# (0-10) L 05/15/25 20:53 Troponin T Hi Sens 6Hr 24.01 ng/L (0-15) H 05/16/25 01:25 Troponin T Hi Sens 6Hr Delta 4.01 ng/L (0-12) 05/16/25 01:25 Total Protein 7.4 g/dL (6.6-8.7) 05/15/25 18:28 Albumin 4.4 g/dL (3.5-5.2) 05/15/25 18: Globulin 3.0 g/dL (1.3-4.6) 05/15/25 18: TSH 3.61 uIU/mL (0.27-4.20) 05/15/25 18:28 Urine Color Yellow (Yellow) 05/15/25 20:13 Urine Appearance Cloudy (CLEAR) A 05/15/25 20:13 Urine pH 5.5 (5-7) 05/15/25 20:13 Ur Specific [place] 1.021 (1.005-1.030) 05/15/25 20:13 Urine Protein 1+ (Negative) A 05/15/25 20:13 Urine Glucose (UA) Negative (Normal) 05/15/25 20:13 Urine Ketones Negative (Negative) 05/15/25 20:13 Urine Blood 2+ (Negative) A 05/15/25 20:13 Urine Nitrate Negative (Negative) 05/15/25 20:13 Urine Bilirubin Negative (Negative) 05/15/25 20:13 Urine Urobilinogen 0.2 mg/dL (Negative) 05/15/25 20:13 Ur Leukocyte Esterase 3+ (Negative) A 05/15/25 20:13 Urine RBC 6-10 /hpf (0-2) 05/15/25 20:13 Urine WBC 21-50 /hpf (0-5) H 05/15/25 20:13 Ur Squamous Epith Cells 0-5 /hpf (0-5) 05/15/25 20:13 Amorphous Sediment Not Reportable 05/15/25 20:13 Urine Bacteria None seen /hpf (NONE) 05/15/25 20:13 Hyaline Casts 7.85 /lpf 05/15/25 20:13 C. difficile (PCR) Negative (Negative) 05/15/25 19:16 Vitals Last Vital Signs Temp 98.2 F 05/16/25 15:32 Pulse 72 05/16/25 15:32 Resp 16 05/16/25 15:32 BP 136/70 05/16/25 15:32 Pulse Ox 93 05/16/25 15:32 O2 Del Method Room Air 05/16/25 11:24 Discharge Plan Discharge Patient Disposition: Home Condition: Stable Prescriptions: New insulin lispro [Humalog U-100 Insulin] 100 unit/mL Solution See Rx Instructions .ROUTE .COMPLEX Qty: 10 0RF Rx Instructions: inject subcut, tid, after meals, based on low dose insulin sliding scale glucagon HCl [Glucagon (HCl) Emergency Kit] 1 mg recon soln 1 mg IM Q20M PRN (Reason: hypoglycemia) Qty: 1 0RF Rx Instructions: until target blood sugar attained cefdinir 300 mg capsule 300 mg PO BID 5 Days Qty: 10 0RF aspirin 81 mg tablet 81 mg PO DAILY 30 Days Qty: 30 0RF Continued atorvastatin [Lipitor] 20 mg tablet 20 mg PO BEDTIME lisinopril 20 mg tablet 20 mg PO QAM (DME) FreeStyle Simin 2 Plus Sensor Device See Rx Instructions .Route Qty: 2 0RF Rx Instructions: As directed levothyroxine [Synthroid] 100 mcg tablet 100 mcg PO DAILY PreserVision AREDS-2 250-90-40-1 mg Capsule 1 tab PO BID sertraline 100 mg tablet 100 mg PO DAILY memantine 5 mg tablet 10 mg PO BID Rexulti 2 mg tablet 2 mg PO DAILY Changed insulin glargine [Lantus Solostar U-100 Insulin] 100 unit/mL (3 mL) insulin pen 10 unit SUBCUT QAM Qty: 45 3RF Discontinued insulin lispro [Humalog KwikPen Insulin] 100 unit/mL insulin pen 20 unit SUBCUT TID Qty: 90 3RF amlodipine 5 mg tablet 5 mg PO DAILY Discharge Order = DC NOW: Discharge Order (Routine); Ordered 05/16/25 Ordered By: Moe Cruz Other Ambulatory Orders: MCT/Event Monitor 30 Days (Routine) Timeframe: 1 Day Facility: [facility] - Location: Radiology Ordered By: Moe Cruz Referrals: CARDIOLOGY [Provider Group, Cardiology] - 05/25/25 1:00 pm Referral Note: 30 day event monitor Ritchie Reyes MD [Physician, Cardiology] - 1 month Terrance Leiva MD [Primary Care Provider, Family Practice] - 05/24/25 11:45 am Discharge Diet: Diabetic Discharge Activity: Resume usual activity Patient Instructions: Glucagon (By injection), Cefdinir (By mouth), Insulin Lispro (By injection), Hypoglycemia in a Person with Diabetes (GEN), Opioid Safety, Patient Portal & Katharine Instructions Activity Restrictions/Additional Instructions: -Please monitor your blood sugars closely -Monitor your blood sugars 3 times daily as after meals -Please record your blood sugars, and a blood sugar log -For your NovoLog -Please inject blood sugar after meals based on sliding scale provided -Do not inject insulin if you do not eat as hypoglycemia kills -This is a NovoLog sliding scale -Insulin sliding ?fingerstick? Insulin ?141-180?0 units/sq 181-220?2 units/sq ?221-260?4 units/sq ?261-300 6 units/sq ?301-350?8 units/sq ?351-400 10 units/sq ?401-450?12 units/sq >450? 14units/sq -If your blood sugar is greater than 500 go to the emergency room -If your blood sugar is less than 60 or at anytime you feel lightheaded or dizzy or diaphoretic or have chest palpitations check your blood sugar, and eat a hard candy or drink orange juice and go immediately to the emergency room -Remember hypoglycemia kills, so if his blood sugar is less than 60 we have to increase it by taking in a sugary meal such as a hard candy or orange juice and go to the emergency room -If you have any questions please call us where here to help -please take glucagon for emergency hypoglycemia - Please take antibiotics for UTI -For your event monitor please follow-up with cardiology -If any chest pain or palpitations go to emergency room - If any strokelike symptoms immediately call 911 Discharge Attestations Time Spent in Discharge Care*: greater than 30 min Quality Metrics Clinical Quality Measures [ No reported AMI, CVA or VTE this stay] Coding Level of Care Code 10810 Total time (in minutes) for Discharge: 45 Diagnoses Syncope, unspecified syncope type R55 Syncope type: unspecified Alzheimer's dementia, unspecified dementia severity, unspecified timing of dementia onset, unspecified whether behavioral, psychotic, or mood disturbance or anxiety G30.9; F02.80 Alzheimer's disease onset: unspecified onset Dementia behavioral or psychological symptom: unspecified whether behavioral, psychotic, or mood disturbance or anxiety Dementia severity: unspecified severity Type 2 diabetes mellitus with hyperglycemia, with long-term current use of insulin E11.65; Z79.4 Diabetes mellitus complication status: with hyperglycemia Diabetes mellitus senior care insulin use: with senior care use Hypoglycemia E16.2
[2025-05-16 18:00] VITALS: BP 136/70; PULSE 72; O2SAT 93
== END 2025-05-16 18:01 | disposition home or self-care (01) ==
LOC: ER 20:36 → MEDSURG 21:12
PROVIDERS: Admitting Provider Family Medicine; Emergency Provider Emergency Medicine; PCP Family Medicine; Visit Provider Family Medicine
DX: R55 Syncope and collapse (principal); G30.9 Alzheimer's disease, unspecified; F02.80 Dementia in other diseases classified elsewhere, unspecified severity, without behavioral disturbance, psychotic disturbance, mood disturbance, and anxiety; E11.65 Type 2 diabetes mellitus with hyperglycemia; Z79.4 Long term (current) use of insulin; E16.2 Hypoglycemia, unspecified; I25.10 Atherosclerotic heart disease of native coronary artery without angina pectoris; Z95.5 Presence of coronary angioplasty implant and graft; E78.2 Mixed hyperlipidemia; Z85.46 Personal history of malignant neoplasm of prostate; G47.30 Sleep apnea, unspecified
CPT/HCPCS: 36415; 36416; 70450; 71045; 80048; 80053; 81001; 82274; 82962; 83630; 83735; 84443; 84484; 85025; 87045; 87086; 87177; 87209; 87427; 87449; 87493; 93005; 93306; 93880; 96372; 96374; 97116; 97161; 97166; 99285; G0378; J0696; J1815; J9999

== ENCOUNTER → 2025-05-22 08:06 | Outpatient (BNVA) | payer MEDICARE, OTHER, SELFPAY | PROVIDERS: PCP Family Medicine; Visit Provider Thoracic Surgery (Cardiothoracic Vascular Surgery) | DX: N30.40 Irradiation cystitis without hematuria (principal) | CPT/HCPCS: G0277 ==

== ENCOUNTER → 2025-05-24 08:10 | Outpatient (BNVA) | payer MEDICARE, OTHER, SELFPAY | PROVIDERS: PCP Family Medicine; Visit Provider Thoracic Surgery (Cardiothoracic Vascular Surgery) | DX: N30.40 Irradiation cystitis without hematuria (principal) | CPT/HCPCS: G0277 ==

== ENCOUNTER → 2025-05-25 08:03 | Outpatient (BNVA) | payer MEDICARE, OTHER, SELFPAY | PROVIDERS: PCP Family Medicine; Visit Provider Thoracic Surgery (Cardiothoracic Vascular Surgery) | DX: N30.40 Irradiation cystitis without hematuria (principal) | CPT/HCPCS: G0277 ==

== ENCOUNTER → 2025-05-26 08:53 | Outpatient (BNVA) | payer MEDICARE, OTHER, SELFPAY | PROVIDERS: PCP Family Medicine; Visit Provider Thoracic Surgery (Cardiothoracic Vascular Surgery) | DX: N30.40 Irradiation cystitis without hematuria (principal) | CPT/HCPCS: G0277 ==

== ENCOUNTER → 2025-05-30 08:02 | Outpatient (BNVA) | payer MEDICARE, OTHER, SELFPAY | PROVIDERS: PCP Family Medicine; Visit Provider Thoracic Surgery (Cardiothoracic Vascular Surgery) | DX: N30.40 Irradiation cystitis without hematuria (principal) | CPT/HCPCS: G0277 ==

== ENCOUNTER → 2025-05-31 08:29 | Outpatient (BNVA) | payer MEDICARE, OTHER, SELFPAY | PROVIDERS: PCP Family Medicine; Visit Provider Thoracic Surgery (Cardiothoracic Vascular Surgery) | DX: N30.40 Irradiation cystitis without hematuria (principal) | CPT/HCPCS: G0277 ==

== ENCOUNTER → 2025-06-01 08:04 | Outpatient (BNVA) | payer MEDICARE, OTHER, SELFPAY | PROVIDERS: PCP Family Medicine; Visit Provider Thoracic Surgery (Cardiothoracic Vascular Surgery) | DX: N30.40 Irradiation cystitis without hematuria (principal) | CPT/HCPCS: G0277 ==

== ENCOUNTER → 2025-06-05 08:16 | Outpatient (BNVA) | payer MEDICARE, OTHER, SELFPAY | PROVIDERS: PCP Family Medicine; Visit Provider Thoracic Surgery (Cardiothoracic Vascular Surgery) | DX: N30.40 Irradiation cystitis without hematuria (principal) | CPT/HCPCS: G0277 ==

== ENCOUNTER → 2025-06-06 08:12 | Outpatient (BNVA) | payer MEDICARE, OTHER, SELFPAY | PROVIDERS: PCP Family Medicine; Visit Provider Thoracic Surgery (Cardiothoracic Vascular Surgery) | DX: N30.40 Irradiation cystitis without hematuria (principal) | CPT/HCPCS: G0277 ==

== ENCOUNTER → 2025-06-07 08:02 | Outpatient (BNVA) | payer MEDICARE, OTHER, SELFPAY | PROVIDERS: PCP Family Medicine; Referring Provider Thoracic Surgery (Cardiothoracic Vascular Surgery); Visit Provider Thoracic Surgery (Cardiothoracic Vascular Surgery) | DX: N30.40 Irradiation cystitis without hematuria (principal) | CPT/HCPCS: G0277 ==

== ENCOUNTER → 2025-06-08 07:57 | Outpatient (BNVA) | payer MEDICARE, OTHER, SELFPAY | PROVIDERS: PCP Family Medicine; Visit Provider Thoracic Surgery (Cardiothoracic Vascular Surgery) | DX: N30.40 Irradiation cystitis without hematuria (principal) | CPT/HCPCS: G0277 ==

== ENCOUNTER → 2025-06-09 10:53 | Outpatient (BNVA) | payer MEDICARE, OTHER, SELFPAY | PROVIDERS: PCP Family Medicine; Visit Provider Internal Medicine Endocrinology, Diabetes & Metabolism | DX: E11.9 Type 2 diabetes mellitus without complications (principal); E78.2 Mixed hyperlipidemia | CPT/HCPCS: 99214; G0277 ==

== ENCOUNTER → 2025-06-12 09:02 | Outpatient (BNVA) | payer MEDICARE, OTHER, SELFPAY | PROVIDERS: PCP Family Medicine; Visit Provider Thoracic Surgery (Cardiothoracic Vascular Surgery) | DX: N30.40 Irradiation cystitis without hematuria (principal) | CPT/HCPCS: G0277 ==

== ENCOUNTER → 2025-06-13 09:29 | Outpatient (BNVA) | payer MEDICARE, OTHER, SELFPAY | PROVIDERS: PCP Family Medicine; Visit Provider Thoracic Surgery (Cardiothoracic Vascular Surgery) | DX: N30.40 Irradiation cystitis without hematuria (principal) | CPT/HCPCS: G0277 ==

== ENCOUNTER → 2025-06-14 09:01 | Outpatient (BNVA) | payer MEDICARE, OTHER, SELFPAY | PROVIDERS: PCP Family Medicine; Visit Provider Thoracic Surgery (Cardiothoracic Vascular Surgery) | DX: N30.40 Irradiation cystitis without hematuria (principal) | CPT/HCPCS: G0277 ==

== ENCOUNTER → 2025-06-19 08:31 | Outpatient (BNVA) | payer MEDICARE, OTHER, SELFPAY | PROVIDERS: PCP Family Medicine; Visit Provider Thoracic Surgery (Cardiothoracic Vascular Surgery) | DX: N30.40 Irradiation cystitis without hematuria (principal) | CPT/HCPCS: G0277 ==

== ENCOUNTER → 2025-06-20 08:51 | Outpatient (BNVA) | payer MEDICARE, OTHER, SELFPAY | PROVIDERS: PCP Family Medicine; Visit Provider Thoracic Surgery (Cardiothoracic Vascular Surgery) | DX: N30.40 Irradiation cystitis without hematuria (principal) | CPT/HCPCS: G0277 ==

== ENCOUNTER → 2025-06-21 08:59 | Outpatient (BNVA) | payer MEDICARE, OTHER, SELFPAY | PROVIDERS: PCP Family Medicine; Visit Provider Thoracic Surgery (Cardiothoracic Vascular Surgery) | DX: N30.40 Irradiation cystitis without hematuria (principal) | CPT/HCPCS: G0277 ==